=== PATIENT | female | born 1955 | race Caucasian/White ===

== ENCOUNTER 2018-12-27 00:49 | Outpatient (CLI) | payer OTHER, SELFPAY ==
--- NOTE | 2018-12-27 15:18 | DI.MAMMO_ITS ---
SYMPTOMS/DIAGNOSIS: SCREENING, Z12.39 MAMMOGRAM: Mammograms were interpreted according to the usual protocol including computer analysis with CAD system, tomosynthesis and C view imaging. Comparison is made with exams from 2016 and 2017. The breasts are composed of heterogeneously dense fibroglandular tissue, breast density Category C. No suspicious masses or suspicious microcalcifications are seen. There has been no significant change. IMPRESSION: Category I C, negative mammogram. Yearly screening mammography is recommended. [facility] ASSESSMENT OF FINDINGS: Negative. Category 1. Patient will receive a letter notifying them of these results. Bi-RADS category C. The breasts are heterogeneously dense, which may obscure small masses.
== END 2018-12-27 01:09 ==
PROVIDERS: PCP Nurse Practitioner Family; Visit Provider Nurse Practitioner Family
DX: Z12.31 Encounter for screening mammogram for malignant neoplasm of breast (principal)
CPT/HCPCS: 77063; 77067

== ENCOUNTER 2019-01-12 12:00 | Outpatient (REF) | payer OTHER, SELFPAY ==
[2019-01-12 13:13] LABS: Anion Gap 5.2 mmol/L (3-11); BUN 17 mg/dL (7-18); CO2 32.8 mmol/L (21.0-32.0); Calcium 8.6 mg/dL (8.5-10.1); Chloride 105 mmol/L (98-107); Cholesterol 194 mg/dL (50-200); Glucose 82 mg/dL (70-100); HDL Cholesterol 54 mg/dL (40-60); LDL CHOLESTEROL 116 mg/dL (<100); Potassium 4.1 mmol/L (3.5-5.1); Sodium 143 mmol/L (136-145); Triglyceride 98 mg/dL (30-150)
== END 2019-01-12 12:20 ==
LOC: NCHCN 12:00
PROVIDERS: PCP Nurse Practitioner Family; Visit Provider Nurse Practitioner Family
DX: E78.00 Pure hypercholesterolemia, unspecified (principal); F32.9 Major depressive disorder, single episode, unspecified; Z00.00 Encounter for general adult medical examination without abnormal findings
CPT/HCPCS: 80048; 80061; 83721

== ENCOUNTER 2021-01-15 12:17 | Outpatient (REF) | payer OTHER, SELFPAY ==
[2021-01-15 13:17] LABS: Anion Gap 4.4 mmol/L (3-11); BUN 24 mg/dL (7-18); CO2 28.6 mmol/L (21.0-32.0); CREATININE 0.9 mg/dL (0.55-1.02); Calcium 8.8 mg/dL (8.5-10.1); Calculated LDL 114 mg/dL (<100); Chloride 106 mmol/L (98-107); Cholesterol 184 mg/dL (<200); Glucose 93 mg/dL (74-106); HDL Cholesterol 58 mg/dL (40-60); Potassium 4.9 mmol/L (3.5-5.1); Sodium 139 mmol/L (136-145); Triglyceride 64 mg/dL (<150)
== END 2021-01-15 12:18 | disposition home or self-care (01) ==
LOC: NCHCN 12:17
PROVIDERS: PCP Nurse Practitioner Family; Visit Provider Nurse Practitioner Family
DX: E78.00 Pure hypercholesterolemia, unspecified (principal); Z00.00 Encounter for general adult medical examination without abnormal findings
CPT/HCPCS: 80048; 80061

== ENCOUNTER 2021-01-23 01:10 | Outpatient (CLI) | payer OTHER, SELFPAY ==
--- NOTE | 2021-01-23 12:18 | DI.MAMMO_ITS ---
EXAM: MG MAMMO SCREENING CLINICAL HISTORY: SCREENING,Z12.39. TECHNIQUE: Bilateral full field digital CC and MLO mammographic images were obtained with 3D tomosyn thesis and utilizing computer aided detection (CAD). COMPARISON: Prior mammograms dating back to 2015, the most recent being November 2018 . FINDINGS: The fibroglandular tissue is dense, this decreasing the sensitivity of the mammogram for finding hidd en underlying lesions. There are no obvious spiculated masses nor malignant appearing microcalcification groups. There is n o significant architectural distortion nor skin thickening-retraction. IMPRESSION: Dense bilateral fibroglandular tissue. No obvious radiographic evidence of malignancy BI-RADS Category 1 - Negative Breast Density - Category D - Extremely dense Breast density Category C or D implies that the patient has dense breast tissue. Dense breast tissue can make it harder to find cancer on a mammogram. Dense breast tissue is also associated with an incr eased risk of breast cancer. This information about the result of the mammogram report was provided to the patient to raise their awareness. Use this report when you speak with the patient about their risks for breast cancer, which includes their family history. At that time, you may recommend additional screening tests (Ultrasoun d or MRI) as these tests may add significant information. A negative radiographic report should not delay biopsy if a dominant or clinically suspicious mass is present. Up to ten percent of cancers are not identified on mammography. A negative report may reinforce clinical impression. Adenosis and dense breasts may obscure an underlying neoplasm. False positive reports average 6 to 10%. Patient will receive a letter notifying them of these results.
== END 2021-01-23 01:11 ==
LOC: DI 01:10
PROVIDERS: PCP Nurse Practitioner Family; Visit Provider Nurse Practitioner Family
DX: Z12.31 Encounter for screening mammogram for malignant neoplasm of breast (principal)
CPT/HCPCS: 77063; 77067

== ENCOUNTER 2021-02-12 10:27 | Outpatient (REF) | payer OTHER, SELFPAY ==
--- NOTE | 2021-02-12 09:45 | PAPFT_PTH ---
PATIENT: Mariely Uribe LOC: [facility] U#:[id number] AGE/SX: 66/F ROOM: RE02/12/[address]: Olga Vasquez : 1955 BED: DIS: 02/12/2021 SPEC #: [id number] RECD: 02/12/21 12:56 STATUS: NASIMA SAMANO #: [id number] NAHOMY: 02/12/21 09:[address]: Olga Vasquez DEPT: [facility] Cytology RECD BY: Milly Bernstein Tissues: 1 - CX/ENDOCX FOR PAP SMEARS Procedures: PAP THIN PREP/UVM Screening Comments: [id number]
== END 2021-02-12 10:28 | disposition home or self-care (01) ==
LOC: NCHCN 10:27
PROVIDERS: PCP Nurse Practitioner Family; Visit Provider Nurse Practitioner Family
DX: Z12.4 Encounter for screening for malignant neoplasm of cervix (principal); Z00.00 Encounter for general adult medical examination without abnormal findings
CPT/HCPCS: 88142

== ENCOUNTER 2021-09-24 03:27 | Outpatient (CLI) | payer OTHER, SELFPAY ==
[2021-09-24 11:30] LABS: Source Nasal/Nares
[2021-09-24 13:46] LABS: COVID-19 PCR Negative (Negative)
== END 2021-09-24 03:28 | disposition home or self-care (01) ==
LOC: LBO 03:28
PROVIDERS: PCP Nurse Practitioner Family; Visit Provider Surgery Vascular Surgery
DX: Z20.822 Contact with and (suspected) exposure to COVID-19 (principal); Z01.818 Encounter for other preprocedural examination
CPT/HCPCS: 87635

== ENCOUNTER 2021-12-02 15:44 | Outpatient (REF) | payer OTHER, SELFPAY ==
[2021-12-02 15:46] LABS: ALT 27 U/L (14-59); AST 22 U/L (15-37); Albumin 3.7 g/dL (3.4-5.0); Alkaline Phosphatase 92 U/L (46-116); Anion Gap 8.1 mmol/L (3-11); BUN 22 mg/dL (7-18); Bilirubin, Total 0.2 mg/dL (0.2-1.0); CO2 28.9 mmol/L (21.0-32.0); CREATININE 0.8 mg/dL (0.55-1.02); Calcium 9.1 mg/dL (8.5-10.1); Chloride 106 mmol/L (98-107); Glucose 87 mg/dL (74-106); Potassium 4.7 mmol/L (3.5-5.1); Sodium 143 mmol/L (136-145); Total Protein 7.1 g/dL (6.4-8.2)
[2021-12-03 10:03] LABS: HIV-1/2 Ag & Ab Screen Negative (Negative)
[2021-12-03 14:58] LABS: Hepatitis C Ab w Rflx HCV PCR Negative (Negative)
== END 2021-12-02 15:45 | disposition home or self-care (01) ==
LOC: NCHCN 15:44
PROVIDERS: PCP Nurse Practitioner Family; Visit Provider Nurse Practitioner Family
DX: E78.00 Pure hypercholesterolemia, unspecified (principal); Z00.00 Encounter for general adult medical examination without abnormal findings; Z11.4 Encounter for screening for human immunodeficiency virus [HIV]; Z11.59 Encounter for screening for other viral diseases
CPT/HCPCS: 80053; 86803; 87389

== ENCOUNTER 2021-12-03 02:19 | Outpatient (CLI) | payer OTHER, SELFPAY ==
[2021-12-03 12:58] LABS: Source Nasal/Nares
[2021-12-03 15:38] LABS: COVID-19 PCR Negative (Negative)
== END 2021-12-03 02:20 | disposition home or self-care (01) ==
PROVIDERS: Surgery Vascular Surgery; PCP Nurse Practitioner Family; Visit Provider Family Medicine
DX: Z20.822 Contact with and (suspected) exposure to COVID-19 (principal); Z01.818 Encounter for other preprocedural examination
CPT/HCPCS: 87635

== ENCOUNTER 2022-01-23 00:54 | Outpatient (CLI) | payer MEDICARE, SELFPAY ==
--- NOTE | 2022-01-23 15:20 | DI.DEXA_ITS ---
Exam(s) XR DEXA BONE DENSITY W/WO CAMILLE EXAM: XR DEXA BONE DENSITY W/WO CAMILLE CLINICAL HISTORY: screening for osteoporosis in postmenopausal woman,z78.0 TECHNIQUE: Routine DEXA evaluation of the lumbar spine, hip, or forearm. COMPARISON: No exams were available for comparison FINDINGS: Performed on a Hologic unit. Lateral image: No compression fracture evident. Lumbar Spine total T-score: 0.7 Hip total T-score:-1.6 Independent reading at the level of the femoral neck yields at T-score of -1.7. Forearm total T-score: -1.7 IMPRESSION: Bone mineral density measures in the osteopenia range. Fracture risk is moderate. Note: Any spine fracture indicates 5x risk for subsequent spine fracture and 2x risk for subsequent h ip fracture. World Health Organization criteria for BMD interpretation classify patients: Normal...... T- Score at or above -1.0 Osteopenic... T- Score between -1.0 and -2.5 Osteoporosis... T-Score at or below -2.5
== END 2022-01-23 01:14 ==
PROVIDERS: PCP Nurse Practitioner Family; Visit Provider Nurse Practitioner Family
DX: Z78.0 Asymptomatic menopausal state (principal); Z13.820 Encounter for screening for osteoporosis; M85.89 Other specified disorders of bone density and structure, multiple sites
CPT/HCPCS: 77080

== ENCOUNTER → 2023-05-21 08:57 | Outpatient (BNVA) | payer OTHER, SELFPAY | PROVIDERS: Visit Provider Physical Therapy Assistant | DX: Z12.11 Encounter for screening for malignant neoplasm of colon (principal); Z86.010 Personal history of colon polyps ==

== ENCOUNTER 2023-06-05 08:25 | Day surgery (SDC) | payer OTHER, SELFPAY ==
--- NOTE | 2023-06-04 20:55 | W.PM.DSUDISC ---
Date of service: 06/05/23 Time of Service: 11:10 Discharge Plan Disposition Patient Disposition: Home Condition: Good Discharge Details Reason For Visit: Colonoscopy Attending Provider: Goran Laird Primary Care Provider: Debbie Marcial Home Meds and New Rx's Prescriptions: Continued famotidine 20 mg tablet 20 mg PO QHS Qty: 60 1RF sertraline 100 mg tablet 150 mg PO DAILY famotidine 40 mg tablet 40 mg PO DAILY albuterol sulfate [ProAir HFA] 90 mcg/actuation HFA aerosol inhaler 2 puff inhalation Q6H PRN cholecalciferol (vitamin D3) 50 mcg (2,000 unit) capsule 50 mcg PO DAILY Discontinued bisacodyl [Dulcolax (bisacodyl)] 5 mg tablet,delayed release (DR/EC) 5 mg PO ONCE Qty: 4 0RF Rx Instructions: Take per colonoscopy instructions provided by ordering providers office polyethylene glycol 3350 17 gram/dose powder 17 g PO ONCE Qty: 238 0RF Rx Instructions: Take per colonoscopy instructions provided by ordering providers office Discharge Instructions Additional Instructions: Mariely, we were able to finish your colonoscopy today without any problems. The quality of your preparation was excellent, and I had great visualization of your large intestine. I did not find any polyps or tumors anywhere within the large intestine. My recommendation for that your next colonoscopy depends on the type of polyps that were found on your last 1. If you are able to obtain these records, please forward a copy of them to my office. If you are not able to obtain them, then I recommend a follow-up in 5 years. 1. If tolerated, consume a soft, low fiber diet for 1-2 days. 2[address] Do not drive, drink alcohol, operate machinery, make critical decisions, or do activities that require coordination or balance for 24 hours. 3. Because air was put into your colon during the procedure, expelling air from your rectum (passing gas or farting) is normal. 4. You may not have a bowel movement for 1-3 days because of the colonoscopy prep. This is normal. 5. Go directly to the emergency room if you notice any of the following: Develop chills (warm to touch), or if you have a thermometer and your temperature is above 101 Difficulty breathing or difficultly swallowing Persistent vomiting Severe abdominal pain, other than gas cramps Severe chest pain Black, tarry stools Any bleeding ? exceeding one tablespoon 6. Call your physician if the site where your intravenous was started becomes red, swollen, painful, and warm to touch. 7. Your physician has reviewed your pre-procedure medications. Please continue to take those medications as previously ordered. You will be given specific information/education regarding any changes to your medications before leaving. Activity:: Activity as Tolerated Diet:: As Tolerated Discharge Orders Discharge Orders: Discharge Order (Routine); Ordered 06/04/23 Ordered By: Goran Laird DS: Diagnosis Discharge Diagnosis (1) Screening for colon cancer: Status: Acute Asessment and Plan: Negative screening colonoscopy
--- NOTE | 2023-06-04 20:56 | W.COLOREPORT ---
Date of service: 06/05/23 Time of Service: 11:11 Colonoscopy Report Date of procedure: 06/05/23 Pre-op diagnosis general: screening colonoscopy Post-op diagnosis procedure note: other (Screening colonoscopy) Procedure: Colonoscopy Surgeon: Goran Laird Anesthesia Type: General:No Airway Estimated blood loss (mL): 0 Pathology: none sent Complications: None Disposition: same day Indications: Mariely is a 68 year old woman who needs a screening colonoscopy Prep: Miralax/Dulcolax Procedure Start Time: 10:47 Procedure End Time: 11:01 Retraction Time: 8 Findings: Negative screening colonoscopy Procedure Description: After the induction of monitored anesthetic care, and with the patient in left lateral decubitus position, I began by performing an external anorectal exam.? Perineum and skin were normal, as was the anal verge.? There was no evidence of external hemorrhoids.? Next, I performed a digital rectal exam.? I did not appreciate any abnormal findings.? Next, I advanced a colonoscope into the rectal vault.? I performed retroflexion.? This appeared normal.? Using insufflation, I then advanced the colonoscope beyond the rectal folds and into the sigmoid colon before advancing towards the cecum.? The quality of the prep was excellent.? The scope was noted to be in the cecum by identification of the ileocecal valve and appendiceal orifice.? I then began withdrawing the colonoscope using repeated irrigation as necessary for full evaluation of the colonic mucosa. ?Once the scope was withdrawn to the level of the rectum, great care was taken to examine portions of the rectal folds. I did not see any signs of polyps or tumors anywhere within the large intestine.? Finally, the scope was withdrawn and the patient was brought to the same-day surgery recovery unit as the anesthetic wore off. ?The findings and instructions were shared with the patient prior to discharge.
[2023-06-05 08:37] VITALS: BP 126/60; PULSE 60; RESP 16; TEMP 36.3; O2SAT 97
[2023-06-05] MEDS: Lactated Ringers 1,000 ML 80 ML IV (08:51)
--- NOTE | 2023-06-05 10:32 | W.ANESPRE ---
General Info Date of Service Date Performed: 06/05/23 Height: 4 ft 11 in Weight: 54.6 kg Body Mass Index (BMI): 24.3 Surgical Procedure: Operation Date: 06/05/23 10:05 Proposed Procedure Side Surgeon wade Laird MD Meds Allergies and Home Medications Allergies Allergy/AdvReac Type Severity Reaction Status Date / Time No Known Allergies Allergy Verified 06/05/23 08:41 Home Medication Medication Instructions Recorded albuterol sulfate 90 mcg/actuation 2 puff inhalation Q6H PRN 09/18/22 aerosol inhaler (ProAir HFA) cholecalciferol (vitamin D3) 50 50 mcg PO DAILY 09/18/22 mcg (2,000 unit) capsule famotidine 40 mg tablet 40 mg PO DAILY 09/18/22 sertraline 100 mg tablet 150 mg PO DAILY 09/18/22 famotidine 20 mg tablet 20 mg PO QHS Reflux #60 tabs 05/22/23 Current Visit Medications: Current Medications Generic Name Dose Route Start Last Admin Trade Name Freq PRN Reason Stop Dose Admin Hyoscyamine Sulfate 0.125 mg 06/04/23 20:57 Hyoscyamine 0.125 Mg Sl/Oral/Chew SL 07/04/23 20:56 DIRECTED PRN Ringer's Solution 1,000 mls @ 80 mls/hr 06/05/23 06:00 06/05/23 08:51 IV 06/05/23 23:59 80 mls/hr INFUSION LLOYD Administration IV Miscellaneous Supplies 1 each 06/05/23 06:00 Iv Access IV 06/05/23 23:59 DIRECTED LLOYD Ondansetron HCl 4 mg 06/04/23 20:57 Ondansetron 4 Mg/2 Ml Vial IVP 07/04/23 20:56 Q4H PRN PRN Nausea / Vomiting Sodium Chloride 0 ml 06/05/23 06:00 Normal Saline Flush 10 Ml Syr IV 06/05/23 23:59 PRN PRN Sodium Chloride 0 ml 06/05/23 06:00 Normal Saline 10 Ml Vial IJ 06/05/23 23:59 DIRECTED PRN Sterile Water 0 ml 06/05/23 06:00 Water,Injection,Sterile 10 Ml Vial IJ 06/05/23 23:59 DIRECTED PRN PFSH Active Problems Active Problems: Problem Status Onset Code COPD (chronic obstructive pulmonary disease) J44.9 Hypercholesterolemia E78.00 Varicose veins of both lower extremities I83.93 GERD (gastroesophageal reflux disease) K21.9 Low back pain M54.50 Screening for colon cancer Z12.11 Medical History Medical History Depression Low vitamin D level Tobacco Smoking/Tobacco Use Status: Former Tobacco Use Alcohol Alcohol Intake: current Alcohol intake frequency: a few times a month Substance Use Substance use: Daily Substance use type: marijuana Vital Signs and Lab Results Vital Signs Most Recent Vital Signs in EMR: Most Recent Vital Signs Temp Pulse Resp BP Pulse Ox 36.3 C L 60 16 126/60 97 06/05/23 08:37 06/05/23 08:37 06/05/23 08:37 06/05/23 08:37 06/05/23 08:37 Lab Results Blood Type / Crossmatch: No Data to Display Complete Blood Count: No Data to Display Complete Metabolic Panel: No Data to Display Liver Function Panel: No Data to Display Coagulation Panel: No Data to Display Cardiac Panel: No Data to Display Arterial Blood Gas: No Data to Display Venous Blood Gas: No Data to Display Pancreas Panel: No Data to Display Thyroid Panel: No Data to Display Infectious Disease: No Data to Display Blood Cultures: No Data to Display Toxicology Panel: No Data to Display Anesthesia Assessment and Plan Anesthesia History Personal History: No History of Anesthesia Complications Family History: No Family History of Anesthesia Complications Exercise Tolerance Exercise Tolerance: Metabolic Equivalents>4 Pertinent Negatives Pertinent Negatives: No Symptoms of GERD Cardiac & Pulmonary Exam Cardiac Exam: Normal S1/S2 Heart Sounds Pulmonary Exam: Clear Bilateral Breath Sounds Implantable Cardiac Device Does patient have a Pacemaker or an ICD?: No Airway Exam Known Difficult Airway: No Mallampati Class: 1 Mouth Opening: Normal (> 3cm) Thyromental Distance: Less than 3 cm Neck Range of Motion: Full ROM Neck Circumference: Normal Teeth Condition: Normal Dentition ASA Classification ASA Score: ASA 2 Emergency Case?: No NPO Status NPO Status: NPO Clears >2 hours, Solids >8 hours Anesthesia Plan Resuscitation Status: Full Code Anesthesia Technique: General Anesthesia Airway Planned: Natural Airway Monitors Used: Standard Monitors
[2023-06-05 10:34] VITALS: BMI 24.3
[2023-06-05 11:05] VITALS: BP 159/89; PULSE 57; RESP 18; TEMP 36; O2SAT 96
--- NOTE | 2023-06-05 11:09 | W.ANESPOSTOP ---
Postoperative Evaluation Date, Time and Location Date Performed: 06/05/23 Time Performed: 11:09 Patient Location: Day Surgery Unit Vital Signs Most Recent Imported Vital Signs: Most Recent Vital Signs Temp Pulse Resp BP Pulse Ox 36.3 C L 60 16 126/60 97 06/05/23 08:37 06/05/23 08:37 06/05/23 08:37 06/05/23 08:37 06/05/23 08:37 Pain Score Most Recent Pain Score: Most Recent Pain Score Pain Level 0 06/05/23 08:37 Assessment Mental Status: Arousable with meaningful communication Airway and Respiratory Function: Patent airway with normal (patient baseline) respiratory exam Cardiovascular Function: Hemodynamically Stable Hydration Status: Adequately Hydrated Nausea & Vomiting: No Nausea or Vomiting Pain: Pt. Denies Any Pain Peripheral Nerve Block: Patient did not receive a nerve block
[2023-06-05 11:26] VITALS: BP 125/69; PULSE 47; RESP 17; TEMP 36.1; O2SAT 97
== END 2023-06-05 11:40 | disposition home or self-care (01) ==
PROVIDERS: PCP Family Medicine; Visit Provider Surgery
PROC: 0DJD8ZZ Inspection of Lower Intestinal Tract, Via Natural or Artificial Opening Endoscopic (ICD-10-PCS; CPT 45378; principal; 2023-06-05 10:00)
DX: Z12.11 Encounter for screening for malignant neoplasm of colon (principal)
CPT/HCPCS: G0121; J2001

== ENCOUNTER 2023-09-17 01:47 | Outpatient (CLI) | payer OTHER, SELFPAY ==
--- NOTE | 2023-09-17 11:45 | DI.MAMMO_ITS ---
Exam(s) MAMMO SCREENING EXAM: MAMMO SCREENING CLINICAL HISTORY: SCREENING, Z12.39 TECHNIQUE: Bilateral full field digital CC and MLO mammographic images were obtained with 3D tomosyn thesis and utilizing computer aided detection (CAD). COMPARISON: Available for comparison. FINDINGS: Masses/Architectural Distortion: None seen. Microcalcifications: No suspicious pleomorphic-type are seen. Skin Thickening/Nipple Retraction: None. IMPRESSION: 1. No significant interval change with no specific features of malignancy noted. 2. Unless there is more urgent need, screening mammography is recommended, as per [employer] [place] guidelines. BI-RADS Category 1 - Negative Breast Density - Category D - Extremely dense Breast density category C or D implies that the patient has dense breast tissue. Dense breast tissue is very common and is not abnormal but dense breast tissue can make it harder to find cancer on a ma mmogram. Also, dense breast tissue may increase their breast cancer risk. This information about the result of the mammogram report was provided to the patient to raise their awareness. Use this report when you speak with the patient about their risks for breast cancer, which includes their family hist ory. At that time, you may recommend for more screening tests (Ultrasound or MRI) as they might be us eful based on their risk. A negative radiographic report should not delay biopsy if a dominant or clinically suspicious mass is present. Up to ten percent of cancers are not identified on mammography. A negative report may reinforce clinical impression. Adenosis and dense breasts may obscure an underlying neoplasm. False positive reports average 6 to 10%. Patient will receive a letter notifying them of these results.
== END 2023-09-17 02:07 ==
LOC: DI 01:47
PROVIDERS: PCP Family Medicine; Visit Provider Nurse Practitioner Family
DX: Z12.31 Encounter for screening mammogram for malignant neoplasm of breast (principal)
CPT/HCPCS: 77063; 77067

== ENCOUNTER 2024-03-17 16:21 | Outpatient (REF) | payer OTHER, SELFPAY ==
[2024-03-17 16:05] LABS: Abs Immature Grans 0.02 10^3/uL (0.0-0.06); Absolute Basophil Count 0.06 10^3/uL (0.0-0.2); Absolute Eosinophil Count 0.03 10^3/uL (0.0-0.7); Absolute Lymphocyte Count 1.78 10^3/uL (1.2-3.4); Absolute Monocyte Count 0.58 10^3/uL (0.1-0.8); Absolute Neutrophil Count 3.71 10^3/uL (1.2-6.7); Eosinophils % 0.5; HCT 38.9 % (36.0-46.0); HGB 12.6 g/dL (11.2-15.7); Immature Grans % 0.3; Lymphocytes % 28.8; MCH 30.2 pg (27.0-33.0); MCHC 32.4 % (32.0-36.0); MCV 93 fL (80-95); Monocytes % 9.4; Platelet Count 318 10^3/uL (130-400); RBC 4.17 10^6/uL (3.93-5.22); RDW 13.2 % (11.7-14.6); RDW-SD 45.5 fL; WBC 6.18 10^3/uL (4.4-10.8)
[2024-03-17 16:52] LABS: ALT 30 U/L (14-59); AST 26 U/L (15-37); Albumin 3.5 g/dL (3.4-5.0); Anion Gap 8.8 mmol/L (3-11); BUN 23 mg/dL (7-18); Bilirubin, Total 0.3 mg/dL (0.2-1.0); CO2 29.2 mmol/L (21.0-32.0); CREATININE 0.8 mg/dL (0.55-1.02); Calcium 8.7 mg/dL (8.5-10.1); Calculated LDL 175 mg/dL (<100); Chloride 105 mmol/L (98-107); Cholesterol 260 mg/dL (<200); Estimated GFR 80.71 (mL/min/1.73m2); Glucose 113 mg/dL (74-106); HDL Cholesterol 59 mg/dL (40-60); Potassium 4.6 mmol/L (3.5-5.1); Sodium 143 mmol/L (136-145); TSH (W/Ref FT4) 2.59 uIU/mL (0.36-3.74); Total Protein 6.8 g/dL (6.4-8.2); Triglyceride 133 mg/dL (<150)
[2024-03-17 17:15] LABS: Alkaline Phosphatase 85 U/L (46-116)
== END 2024-03-17 16:22 | disposition home or self-care (01) ==
LOC: NCHCN 16:21
PROVIDERS: PCP Nurse Practitioner Family; Visit Provider Nurse Practitioner Family
DX: K21.9 Gastro-esophageal reflux disease without esophagitis (principal); F32.9 Major depressive disorder, single episode, unspecified
CPT/HCPCS: 80053; 80061; 84443; 85025

== ENCOUNTER 2024-09-20 16:27 | Outpatient (REF) | payer OTHER, SELFPAY ==
--- OUTSIDE RECORDS SUMMARY | 2024-09-20 16:42 | XMS_ITS | Clinical Summary ---
Author Organization [facility] Address [address] [place] [id number] Care Team Providers Care Prototype Technician Name Role Phone Laura Najera MD Primary Care Provide r Allergies No known active allergies Medications Medication Sig Dispensed Refills Start Date End Date Status sertraline (ZOLOFT) 25 mg tablet Take 150 mg by mouth daily. Active cholecalciferol, Vitamin D3, 25 mcg (1,000 unit) tablet Take 2,000 Units by mouth daily. Active acetaminophen (TYLENOL) 325 mg tablet Take 650 mg by mouth every 4 hours as needed for Pain. Active Active Problems Problem Noted Date Diagnosed Date Venous insufficiency, peripheral 09/11/2021 Surgical History Surgery Date Site/Laterality Comments VASCULAR SURGERY bilateral vein stripping age 30's SECTION x 2 CERVICAL SPINE SURGERY 11/30/2016 - 11/29/2017 Medical History Medical History Date Comments Hyperlipidemia COPD (chronic obstructive pulmonary disease) ( C-CMS) Family History Medical History Relation Comments Diabetes Father Heart Disease Father High Cholesterol Father Stroke Father Varicose Veins Father Emphysema Mother Relation Status Comments Father Mother Social History Tobacco Use Types Packs/Day Years Used Date Smoking Tobacco: Former Cigarettes Q uit: 11/30/2008 Smokeless Tobacco: Never Tobacco Cessation:Counseling Given: Yes Alcohol Use Standard Drinks/Week Comments Yes 3 (1 standard drink = 0.6 oz pur e alcohol) Interpersonal Safety Answer Date Record ed Physically Hurt Never 01/27/2021 Verbally Threaten Not on file 01/27/2021 Sex and Gender Information Value Date Recorded Sex Assigned at Not on file Gender Identity Not on file Sexual Orientation Not on file Obstetrics History Last Filed Vital Signs Vital Sign Reading Time Taken Comments Blood Pressure 120/80 12/13/2021 1031 EST left Pulse 56 12/13/2021 1031 EST Temperature 36.2 ??C (97.1 ??F) 12/06/2021 0945 EST Respiratory Rate 12 12/06/2021 0945 EST Oxygen Saturation 94% 12/13/2021 1031 EST Inhaled Oxygen Concentration - - Weight 60.8 kg (134 lb) 12/06/2021 0649 EST Height 149.9 cm (4' 11) 12/06/2021 0649 EST Body Mass Index 27.06 12/06/2021 0649 EST Plan of Treatment Health Maintenance Due Date Last Done Comments RSV Immunization ( o r 60+ Years) (1 - 1-dose 60+ series) 2017 Fall Risk Screening 2022 COVID-19 Vaccine (2022-24 season) 2023 Hepatitis C Screen Completed 12/02/2021 Procedures Procedure Name Priority Date/Time Associated Diagnosis Comments HEPATITIS C AB W REFLEX TO HCV RNA BY PCR Routine 12/02/2021 10:10 EST from Last 3 Months or Most Recently Relevant to Health Maintenance Results * HEPATITIS C AB W REFLEX TO HCV RNA BY PCR (12/02/2021 10:10 EST) Hep C Antibody Negative Negative 12/03/2021 14:[address] [facility] Blood VENOUS BLOOD / Unknown 12/02/2021 10:10 EST 12/02/2021 20:51 EST Provider Outr Resulting Lab CHEMISTRY & BLOOD GAS ORDERABLES [facility] [address] [place] [address] from Last 3 Months or Most Recently Relevant to Health Maintenance Advance Directives For more information, please contact: [phone] * Full Code (Latest Code Status on File) Date Activated Date Inactivated Comments 12/06/2021 6:27 12/06/2021 13:03 Question Answer Comments When the patient has NO PULSE: Full Code / CPR Who Made the Decision? Default/Not Discussed Care Teams Prototype Technician Relationship Specialty Start Date End Date Laura Najera MD [address] [place] [id number] PCP - General 04/16/17
--- OUTSIDE RECORDS SUMMARY | 2024-09-20 16:43 | XMS_ITS | Encounter Summary ---
Author Organization [facility] Address [address] [place] [address] Care Team Providers Care Tow Motor Driver Name Role Phone Veronica Jarvis MD, Aruna Primary Care Provider [phone] Encounter Details Date Type Department Care Team (Late st Contact Info) Description 08/25/2006 Office Visit [facility] - Maple conversion [address] [place] [address] Rosario Webster MD [address] [place] [id number] Social History Tobacco Use Types Packs/Day Years Used Date Smoking Tobacco: Never Assessed Sex and Gender Information Value Date Recorded Sex Assigned at Not on file Gender Identity Not on file Sexual Orientation Not on file documented as of this encounter Progress Notes * Rosario Webster MD - 01/24/2010 0557 EST Care Center - Physician Summary Registration Date/Time: 08/28/2006 12:40 Time Seen: 13:51 . Arrived- By private vehicle. Historian - patient. HISTORY OF PRESENT ILLNESS Chief Complaint- WOUND RECHECK. Previous emergency department treatment: laceration repair. given. Since the procedure the patient has not had fever, redness or discharge. Treated in emergency department three days ago. REVIEW OF SYSTEMS No numbness or weakness. PAST HISTORY See nurses notes. Tetanusimmunization status is up-to-date. Ortho. Medications: Keflex. No known drug allergies. SOCIAL HISTORY Patient is employed (at [employer]). ADDITIONAL NOTES The nursing notes have been reviewed. PHYSICAL EXAM Appearance: Alert. Oriented X3. No acute distress. Vital Signs: Have been reviewed - Skin: Wound on the right hand. Swelling to right hand. Note (R hand: ecchymosis of second, third and fourth digits ). No erythema, tenderness, warmth, drainage or wound dehiscence. Neuro, Vascular, and Tendons: No pulse deficit present (RUE). No sensory deficit (RUE). No upper extremity weakness (RUE). No functional tendon deficit (RUE). Neuro: Oriented X 3. PROGRESS AND PROCEDURES Patient counseled. Re: elevation of hand to reduce swelling. Disposition: Discharged home in stable condition (13:56 ). CLINICAL IMPRESSION Healing wound to right hand; . Contusion right hand . INSTRUCTIONS Limit use of right hand for 7 days. Do not work for two days. See instructions for laceration and contusion. (Electronically signed by Rosario Webster M.D. 08/28/2006 17:42) Care Center - Nursing Summary Registration Date/Time: 08/28/2006 12:40 TRIAGE Initial Assessment BP: 110 / 60. HR: 80. RR: 18. Temp: 97.2. --1330 Wellington Campbell R.N. Medications Celexa. ( antibiotics, vicodin). --1330 Wellington Campbell R.N. Allergies No known drug allergies. --1330 Wellington Campbell R.N. History Chief Complaint: LACERATION and ( wound re-check). This occurred ( 4 days). Pain level now: 0/10. ( full rom, continued swelling). Treatment RAT TRAPPER: ( elvated). PAST HX: Negative. Tetanus status: up-to-date. SOCIAL HX: Smoker: less than 1 pack per day. No alcohol use. Historian: patient. Arrived by private vehicle. --1330 Wellington Campbell R.N. PHYSICAL ASSESSMENT Ambulatory to room. ( hand swollen with eccymosis, wound clean and dry, sutures intact). --1331 Wellington Adrian, R.N. DISPOSITION / DISCHARGE Condition at departure: improved. No learning barriers present. Discharge instructions reviewed with the patient. Patient verbalized understanding. Written instructions provided in Libyan. --1411 Wellington Campbell R.N. Locked/Released at 08/28/2006 14:11 by Wellington Campbell R.N. * Rosario Webster MD - 01/23/2010 1393 EST Care Center - Physician Summary Registration Date/Time: 08/25/2006 8:04 Attending Note: I supervised care provided by the resident. We have discussed the case. I have reviewed the note and agree with the plan of treatment. I personally interviewed the patient and examined the patient. Procedure performed- performed by me. Patient identified, consent obtained. Location right dorsum, irrigated extensively with NS by Walk-In Care staff, inspected, no FB visualized, no tendon laceration visualized, anesthesia with 2 % lidocaine, sutured with 5-0 ethilon, good hemostasis, no complication. I have personally reviewed the X-rays. (Electronically signed by Rosario Webster M.D. 08/30/2006 19:19) Arrived- By private vehicle. Historian - patient. HISTORY OF PRESENT ILLNESS Chief Complaint- Injury to the right hand. The injury happened just prior to arrival. She sustaineda crush injury - caught hand in machine. Occurred at work. Patient is experiencing severe pain. No other injury. REVIEW OF SYSTEMS The patient sustained a laceration to the right hand. She has had swelling. She has had constant numbness of the right hand (moderate). PAST HISTORY Tetanus immunization status is unknown. Medications: The patient's medications have been reviewed. Allergies: No known drug allergies. SOCIAL HISTORY Smoker. Alcohol use; consumes beer occasionally. ADDITIONALNOTES The nursing notes have been reviewed. PHYSICAL EXAM Appearance: Alert. Oriented X3. Patient in moderate distress. Vital Signs: Have been reviewed - Head: Head atraumatic. CVS: Normal heart rate and rhythm. Heart sounds normal. Respiratory: No respiratory distress. Skin: Skin warm and dry. Extremities: Dorsal right hand: moderate erythema and swelling, severe tenderness and deep laceration. Neurovascular intact distally. No signs of infection present. Extremities otherwise negative. Neuro, Vascular and Tendons: Vascular status intact. Decreased light touch sensation over the rightlittle finger. Motor intact. Tendon function intact. LABS, X-RAYS, AND EKG X-Rays: (Reviewed w/ Dr. Webster). PROGRESS AND PROCEDURES PROCEDURES Documented by Dr. Webster. Disposition: Discharged home in goodcondition. CLINICAL IMPRESSION Deep laceration to right hand. Contusion right hand . INSTRUCTIONS Limit use of your right hand as needed and until released. Do not work for three days. Warnings: TETANUS: You were given a tetanus shot in the emergency department. Make a note for future reference. Prescription Medications: Vicodin 5 mg: take 1 to 2 orally every 6 hours as needed for pain. Dispense fifteen(15). No refills. Generic substitute OK. Cephalexin 500 mg: take 1 tab orally every 6 hours for 3 days. No refill. OTC Medications: Motrin (available over the counter): take according to label instructions. Follow-up: Return to the emergency department in three days. (Electronically signed by Evelia Baxter MD 08/25/2006 16:15) Care Center - Nursing Summary Registration Date/Time: 08/25/2006 8:04 TRIAGE Initial Assessment Triage time 08:08 . BP: 110 / 60. HR: 92. RR: 18. --816 Mariely Deluna R.N. Medications Celexa (1/2 tab a day). --816 Mariely Deluna R.N. Allergies No known drug allergies. --816 Mariely Deluna R.N. History Chief Complaint: INJURY TO RIGHT HAND. This occurred today. Mechanism of injury (In a door with a power james). Pain level now: 09/08. PAST HX: Negative. History of previous surgery. . ( Orthopedic surgeries.). Tetanus status: unknown. Last tetanus: ( 5-10 years). SOCIAL HX: Smoker (3/4 ppd). Occasional alcohol use. Arrived by private vehicle. Historian: patient. --816 Mariely Deluna R.N. PAST HX. PHYSICAL ASSESSMENT Alert. Oriented X 3. Skin is warm. --816 Mariely Deluna R.N. Appears in pain. --08 Mariely Deluna R.N. NURSING PROGRESS NOTES Progress Patient ready for evaluation - --817 Mariely Deluna R.N. Pre-procedure time-out completed: verified identity of patient (name and birthdate). . --45 Mariely Deluna R.N. Td (TETANUS and DIPHTHERIA) 0.5 mL lot #[id number] exp date IM left deltoid. . --0846 Mariely Deluna R.N. Bulky dressing consisting of gauze and Kerlix was applied, following the application of antibiotic ointment. --1045 Marycruz Allen M.A. DISPOSITION / DISCHARGE No learning barriers present. Reviewed medication (Vicodin and antibiotics). Patient verbalized understanding. Written instructions provided in Libyan. The patient was discharged home. The patient left the EmergencyDepartment ambulatory and via private vehicle. Patient driving. Departure time: 10:53. --1053 Mariely Deluna R.N. Locked/Released at 08/25/2006 10:54 by Mariely Deluna R.N. documented in this encounter Plan of Treatment Not on file documented as of this encounter Visit Diagnoses Not on filedocumented in this encounter Care Teams Tow Motor Driver Relationship Specialty Start Date End Date Aruna Martin MD [address] [place] [phone] PCP - General 04/30/09 04/15/17 documented as of this encounter
--- OUTSIDE RECORDS SUMMARY | 2024-09-20 16:43 | XMS_ITS | Encounter Summary ---
Author Organization [facility] Address [address] [place] [address] Care Team Providers Care Pharmacometrician Name Role Phone Laura Najera MD Primary Care Provide r Reason for Visit * Vascular Lab (Routine) - Closed Specialty Diagnoses / Procedures Referred By Sukhi parmar Referred To Contact Diagnoses Varicose veins of bilateral lower extremities with pain Procedures US VARICOSE VEIN DUPLEX Julio César Jacques MD [address] [place] [address] [address] [place] [address] Referral ID Status Reason Start Date Expiration Date Visits Re quested Visits Authorized [id number] Closed 01/18/2021 1 1 Encounter Details Date Type Department Care Team (Latest Contact Info) Description 02/22/2021 13:30 EDT Ancillary Procedure [facility] Vascular Surgery [address] [address] Varicose veins of bilateral lower extremities with pain Social History Tobacco Use Types Packs/Day Years Used Date Smoking Tobacco: Former Smokeless Tobacco: Never Interpersonal Safety Answer Date Record ed Physically Hurt Never 01/27/2021 Verbally Threaten Not on file 01/27/2021 Sex and Gender Information Value Date Recorded Sex Assigned at Not on file Gender Identity Not on file Sexual Orientation Not on file COVID-19 Exposure Response Date Recorded In the last month, have you been in contact with someone who was confirmed or suspected to have Coronavirus / COVID-19? No / Unsure 02/22/2021 13:48 EDT documented as of this encounter Functional Status Functional Status Response Date of Assess ment Because of a physical, menta l, or emotional condition, does this person have difficulty doing errands alone such as visiting a doctor's office or shopping? No 04/16/2017 Cognitive Status Response Date of Assessm ent Because of a physical, menta l, or emotional condition, does this person have serious difficulty concentrating, remembering, or making decisions? No 04/16/2017 documented as of this encounter Plan of Treatment Not on file documented as of this encounter Visit Diagnoses Diagnosis Varicose veins of bilateral lower extremities with pain documented in this encounter Orders Imaging Orders Without Results Count Last Order ed Date First Ordered Date US VARICOSE VEIN DUPLEX 1 02/22/2021 documented in this encounter Care Teams Pharmacometrician Relationship Specialty Start Date End Date Laura Najera MD [address] [place] [id number] PCP - General 04/16/17 documented as of this encounter
--- OUTSIDE RECORDS SUMMARY | 2024-09-20 16:43 | XMS_ITS | Encounter Summary ---
Author Organization [facility] Address [address] [place] [address] Care Team Providers Care Processing Inspector Name Role Phone Veronica Jarvis MD, Aruna Primary Care Provider [phone] Encounter Details Date Type Department Care Team (Late st Contact Info) Description 04/23/2001 Results Only [facility] - Maple conversion [address] [place] [address] Erika Peterson I, COMPUTER SCIENCE PROFESSOR [address] [place] [address] Social History Tobacco Use Types Packs/Day Years Used Date Smoking Tobacco: Never Assessed Sex and Gender Information Value Date Recorded Sex Assigned at Not on file Gender Identity Not on file Sexual Orientation Not on file documented as of this encounter Plan of Treatment Not on file documented as of this encounter Procedures Procedure Name Priority Date/Time Associated Diagnosis Comments CYTOPATHOLOGY Routine 04/23/2001 0:00 EDT documented in this encounter Results * CYTOPATHOLOGY (04/23/2001 0:00 EDT) Pathology Report: CYTOPATHOLOGY REPORT Reports generated via electronic interface contain original data; however they are lacking the format of the original report. Caution should be taken when reading/interpreti ng unformatted reports. Name: ? KOLE ANGLIN ? Accession #: ? [id number] : ? 1955 (Age: 46) ??F ?Collect Date: ? 04/23/2001 Location: ? [facility] ? Receive Date: ? 04/28/2001 Provider: ?ERIKA PETERSON MD Copy to: ? Specimen/Source: ?ThinPrep Pap Test, Cervix Last Menstrual Period: ? 03/30/01 Other: ? Client ID#: [id number] ? SPECIMEN ADEQUACY ? Satisfactory for evaluation. GENERAL CATEGORIZATION ? Benign Cellular Changes DESCRIPTIVE DIAGNOSIS ? 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 ? Document reviewed and electronically signed by: ? LETICIA Byers(ASCP) ? Report Date: ??04/29/2001 08:10 End of Report [facility] 04/23/2001 04/28/2001 Erika Peterson COMPUTER SCIENCE PROFESSOR PATHOLOGY ORDERABLES Performing Organization Address City/State/[facility] Co de Phone Number [facility] [address] [place] [address] documented in this encounter Visit Diagnoses Not on filedocumented in this encounter Care Teams Processing Inspector Relationship Specialty Start Date End Date Aruna Martin MD [address] [place] [phone] PCP - General 04/30/09 04/15/17 documented as of this encounter
--- OUTSIDE RECORDS SUMMARY | 2024-09-20 16:43 | XMS_ITS | Encounter Summary ---
Author Organization [facility] Address [address] [place] [address] Care Team Providers Care Trades Helper Name Role Phone Unavailable Primary Care Provider Unavailabl e Encounter Details Date Type Department Care Team (Late st Contact Info) Description 09/03/2006 16:34 EDT Hospital Encounter [facility] [address] [place] [address] Kingston Lemon, TRANSLATOR DEAF [address] [place] [address] Milly Ty MD [address] [facility] Level [address] [place] [phone] Social History Tobacco Use Types Packs/Day Years Used Date Smoking Tobacco: Former Cigarettes Q uit: 11/30/2008 Smokeless Tobacco: Never Alcohol Use Standard Drinks/Week Comments Yes 3 [...] have Coronavirus / COVID-19? No / Unsure 12/06/2021 6:33 EST documented as of this encounter Plan of Treatment Not on file documented as of this encounter Visit Diagnoses Not on filedocumented in this encounter
--- OUTSIDE RECORDS SUMMARY | 2024-09-20 16:43 | XMS_ITS | Encounter Summary ---
Author Organization [facility] Address [address] [place] [address] Care Team Providers Care Administration Dean Name Role Phone Unavailable Primary Care Provider Unavailabl e Encounter Details Date Type Department Care Team (Late st Contact Info) Description 05/31/2002 9:32 EDT Hospital Encounter [facility] - Other [address] [place] [address] Aruna Fuller MD [address] [place] [phone] Unknown, Provider, Social History Tobacco Use Types Packs/Day Years [...] Procedure Name Priority Date/Time Associated Diagnosis Comments HDL Routine 05/31/2002 11:00 EDT FSH Routine 05/31/2002 11:00 EDT CHOLESTEROL Routine 05/31/2002 11:00 EDT CYTOPATHOLOGY Routine 05/31/2002 0:00 EDT documented in this encounter Results * HDL (05/31/2002 11:00 EDT) HDL 43 mg/dl [facility] Comment: Highly Desirable:>60 Desirable:35-60 High Risk:<35 05/31/2002 11:0 0 EDT 05/31/2002 21:08 EDT Aruna Jarvis MD CHEMISTRY & BLOOD GA S ORDERABLES Performing Organization Address [facility] de Phone Number [facility] [address] [place] [address] * FSH (05/31/2002 11:00 EDT) FSH 10.2 mIU/ml [facility] Comment: Follicular: 2-11 Mid-Cycle Peak: 3.4-35 Luteal: 1-9 Postmenopausal: 25-120 Note new reference range. 05/31/2002 11:0 0 EDT 05/31/2002 21:08 EDT Aruna Jarvis MD CHEMISTRY & BLOOD GA S ORDERABLES Performing Organization Address [facility] Co de Phone Number [facility] [address] [place] [address] * CHOLESTEROL (05/31/2002 11:00 EDT) Cholesterol 229 mg/dl [facility] Comment: Desirable:<200 Borderline:200-239 High Risk:>ku=217 05/31/2002 11:0 0 EDT 05/31/2002 21:08 EDT Aruna Jarvis MD CHEMISTRY & BLOOD GA S ORDERABLES Performing Organization Address [facility] Co de Phone Number [facility] [address] [place] [address] * CYTOPATHOLOGY (05/31/2002 0:00 EDT) Pathology Report: CYTOPATHOLOGY REPORT Reports generated via electronic interface contain original data; however they are lacking the format of the original report. Caution should be taken when reading/interpreti ng unformatted reports. Name: ? KOLE ANGLIN ? Accession #: ? [id number] : ? 1955 (Age: 47) ??F ?Collect Date: ? 05/31/2002 Location: ? [facility] ? Receive Date: ? 06/01/2002 Provider: ?ARUNA FULLER MD Copy to: ? Specimen/Source: ?ThinPrep Pap Test, Cervix Last Menstrual Period: ? 01/29 ? SPECIMEN ADEQUACY ? Satisfactory for Evaluation - transformation zone component present GENERAL CATEGORIZATION ? Negative for Intraepithelial Lesion or Malignancy ? Document reviewed and electronically signed by: ? LETICIA Byers(ASCP) ? Report Date: ??06/08/2002 08:54 End of Report [facility] 05/31/2002 06/01/2002 Aruna Jarvis MD PATHOLOGY ORDERABLES [facility] [address] [place] [address] documented in this encounter Visit Diagnoses Not on filedocumented in this encounter
--- OUTSIDE RECORDS SUMMARY | 2024-09-20 16:43 | XMS_ITS | Encounter Summary ---
Author Organization [facility] Address [address] [place] [address] Care Team Providers Care Veneer Marker Name Role Phone Unavailable Primary Care Provider Unavailabl e Encounter Details Date Type Department Care Team (Latest Contact Info) Description 09/13/2001 22:38 EDT Hospital Encounter [facility] - Other [address] [place] [address] Lesly Paulino, OT [address] [phone] Unknown, Provider, Discharge Disposition: Auto Discharge Social History Tobacco Use Types Packs/Day Years Used Date Smoking Tobacco: Never Assessed Sex and Gender Information Value Date Recorded Sex Assigned at Not on file Gender Identity Not on file Sexual Orientation Not on file documented as of this encounter Discharge Disposition Disposition Code Departure Means Destination Auto Discharge documented in this encounter Plan of Treatment Not on file documented as of this encounter Procedures Procedure Name Priority Date/Time Associated Diagnosis Comments SURGICAL PATHOLOGY Routine 09/13/2001 0:00 EDT documented in this encounter Results * SURGICAL PATHOLOGY (09/13/2001 0:00 EDT) Pathology Report: SURGICAL PATHOLOGY REPORT Reports generated via electronic interface contain original data; however they are lacking the format of the original report. Caution should be taken when reading/interpreting unformatted reports. Name: ? LINNETTEKOLE ? Accession #: ? [id number] ? : ? 1955 (Age: 46) ??F ? Collect Date: ? 09/13/2001 ? Location: ? [facility] ? Receive Date: ? 09/14/2001 ? Provider: LESLY PAULINO MD Copy to: ? Final Pathologic Diagnosis: ? Skin of thigh, right, punch biopsy: - Psoriasiform dermatitis. ??See microscopic and comment. Comment: ? The biopsy shows many features of psoriasis. ??The only unusual feature is the preservation of the granular layer that, in some areas, appears accentuated. This may be seen in cases of partially treated psoriasis. ??(Dr. Rubio)/formerly [facility], later [facility] Microscopic Description: ? Sections consist of a punch biopsy of skin to the deep reticular dermis. The stratum corneum is thickened by compact orthohyperkeratosis with foci of parakeratosis. ??Clusters of neutrophils are noted between the layers of keratin. The epidermis shows a moderate degree of regular psoriasiform hyperplasia with elongate and slightly thickened rete ridges. ??The keratinocytes along the basal zone show reactive changes and an increased number of mitotic figures. ??There is mild intercellular edema associated with exocytosis of a small number of lymphomononuclear cells. ??The granular layer is preserved in most areas. ??Within the superficial dermis, there is a sparse inflammatory infiltrate that is composed primarily of lymphocytes and histiocytes with a small number of neutrophils. ??Some of the dermal papillae have prominent swollen capillaries. ??A small number of budding yeast forms are identified within the stratum corneum on sections stained with PAS-amylase. ??No fungal hyphae are present. ??(Dr. Rubio)/james Document reviewed and electronically signed by: Lesly Rubio MD Report ??Date: 09/17/2001 16:42 By the signature above, the attending physician certifies that he/she has personally conducted a gross and/or microscopic examination of the described specimens and rendered or confirmed the above diagnosis. Specimen(s) Received: ? R thigh Clinical History: ? psoriasis; clinical diagnosis code: 696.1 Gross Description: ? Received in formalin labelled Linnette and R thigh is a punch biopsy of skin which measures 0.3 cm in diameter and 0.3 cm in depth. ??The specimen is submitted entirely in one cassette. ??(Dr. Martinez)/rigoberto End of Report [facility] 09/13/2001 09/14/2001 9:2 8 EDT Lesly Paulino OT PATHOLOGY ORDERA JASMYN [facility] [address] [place] [address] documented in this encounter Visit Diagnoses Not on filedocumented in this encounter
--- OUTSIDE RECORDS SUMMARY | 2024-09-20 16:43 | XMS_ITS | Encounter Summary ---
Author Organization [facility] Address [address] [place] [address] Care Team Providers Care Mat Tester Name Role Phone Unavailable Primary Care Provider Unavailabl e Encounter Details Date Type Department Care Team (Latest Contact Info) Description 01/13/2000 16:09 EST Hospital Encounter [facility] - Other [address] [place] [address] Cristian Gayle MD [address] [place] [phone] Unknown, ProviderMD Discharge Disposition: Auto Discharge Social History Tobacco [...] Procedure Name Priority Date/Time Associated Diagnosis Comments GLUCOSE, SERUM Routine 01/14/2000 17:53 EST CYTOPATHOLOGY Routine 01/13/2000 14:21 EST documented in this encounter Results * GLUCOSE, SERUM (01/14/2000 17:53 EST) Glucose, Serum 85 70 - 110 mg/dl [facility] Comment:Fasting 01/14/2000 17:5 3 EST 01/14/2000 17:53 EST Cristian Jarvis MD CHEMISTRY & BLOOD GA S ORDERABLES [facility] [address] [place] [address] * CYTOPATHOLOGY (01/13/2000 14:21 EST) Pathology Report: CYTOPATHOLOGY REPORT Reports generated via electronic interface contain original data; however they are lacking the format of the original report. Caution should be taken when reading/interpreti ng unformatted reports. Name: ? KOLE ANGLIN ? Accession #: ? [id number] : ? 1955 (Age: 45) ??F ?Collect Date: ? 01/13/2000 Location: ?Receive Date: ? 01/13/2000 Provider: ?CRISTIAN GAYLE MD Copy to: ?CRISTIAN GAYLE MD ? Specimen/Source: ?[employer] ThinPrep Last Menstrual Period: ? GYNECOLOGIC ??CYTOPATHOLOGY ??REPORT Name: KOLE THOMASON ? [facility] : 1955 ?? 45Y F ?Client ID: ?? SS#: [id number] ? Clinician: CRISTIAN GAYLE MD, [facility] ??Copy to: ?? Specimen: ?[employer]orter ThinPrep ? Source: Cervix/Endocervix ?Collected: 01/10/00 ? Received: 01/13/2000 ?LMP: 01/07/00 ? Hormone Therapy: No ? : No ? Radiation Therapy: No ?? Post : No ?Chemotherapy: No ?IUD: No ? Prev Abnormal Pap: No ?? Clinical Hx: Digene HPV Hybrid Capture testing requested, ? contingent on a diagnosis of ASCUS/NATA/LSIL on the ? current ThinPrep Pap test. ??HPV test results to follow ? in 7 to 10 days, if the cellular sample is sufficient ? for testing. ?(Blank nation indicate information not provided on requisition) SPECIMEN ADEQUACY: ? Satisfactory For Evaluation ?? GENERAL CATEGORIZATION: ? WITHIN NORMAL LIMITS ? Reviewed And Electronically Signed By: ? Vincent Johnson, CT(ASCP) ? Report Date: ?? 01/15/2000 [facility] Archived Tests - Final Diagnosis Text Field: Clinical History : Digene HPV Hybrid Capture testing requested, contingent on a diagnosis of ASCUS/NATA/LSIL on the current ThinPrep Pap test. ??HPV test results to follow in 7 to 10 days, if the cellular sample is sufficient for testing. ? Document reviewed and electronically signed by: ? Conversion ? Report Date: ??01/15/2000 00:00 End of Report [facility] 01/13/2000 14:2 1 EST 01/13/2000 14:22 EST Cristian Jarvis MD PATHOLOGY ORDERABLES [facility] [address] [place] [address] documented in this encounter Visit Diagnoses Not on filedocumented in this encounter
--- OUTSIDE RECORDS SUMMARY | 2024-09-20 16:43 | XMS_ITS | Encounter Summary ---
Author Organization [facility] Address [address] [place] [address] Care Team Providers Care Veneer Gluer Name Role Phone Veronica Jarvis MD, Aruna Primary Care Provider [phone] Encounter Details Date Type Department Care Team (Late st Contact Info) Description 09/05/2003 Results Only [facility] conversion [address] [place] [address] Aruna Martin MD [address] [place] [phone] Social History Tobacco Use Types Packs/Day Years Used Date Smoking Tobacco: Never Assessed Sex and Gender Information Value Date Recorded Sex Assigned at Not on file Gender Identity Not on file Sexual Orientation Not on file documented as of this encounter Plan of Treatment Not on file documented as of this encounter Procedures Procedure Name Priority Date/Time Associated Diagnosis Comments TSH Routine 09/05/2003 10:45 EDT LIPID PROFILE (INCLUDES CHOLESTEROL, TRIGLYCERIDES, HDL, LDL) Routine 09/05/2003 10:45 EDT COMPREHENSIVE METABOLIC PANEL (CMP) Routine 09/05/2003 10:45 EDT documented in this encounter Results * TSH (09/05/2003 10:45 EDT) TSH 1.63 0.35 - 5.50 uIU/ml [facility] 09/05/2003 10:4 5 EDT 09/05/2003 20:21 EDT Aruna Jarvis MD CHEMISTRY & BLOOD GA S ORDERABLES Performing Organization Address [facility] de Phone Number [facility] [address] [place] [address] * LIPID PROFILE (INCLUDES CHOLESTEROL, TRIGLYCERIDES, HDL, LDL) (09/05/2003 10:45 EDT) Cholesterol 189 mg/dl [facility] Comment: Desirable:<200 Borderline:200-239 High Risk:>[id number] Fasting Triglycerides 96 35 - 160 mg/dl [facility] Comment:Fasting HDL 36 mg/dl [facility] Comment: Highly Desirable:>60 Desirable:35-60 High Risk:<35 Fasting LDL, Calculated 134 mg/dl [facility] Comment: Desirable:<130 Borderline:130-159 High Risk:>rq=[id number] Fasting Chol/HDL Ratio 5.3 Fasting [facility] 09/05/2003 10:4 5 EDT 09/05/2003 20:21 EDT Aruna Jarvis MD CHEMISTRY & BLOOD GA S ORDERABLES Performing Organization Address [facility] de Phone Number [facility] [address] [place] [address] * (ABNORMAL) COMPREHENSIVE METABOLIC PANEL (CMP) (09/05/2003 10:45 EDT) Potassium 4.9 3.5 - 5.0 mEq/L [facility] Comment:Fasting Sodium 139 136 - 145 mEq/L [facility] Comment:Fasting Chloride 101 96 - 110 mEq/L [facility] Comment:Fasting CO2 29 24 - 30 mEq/L [facility] Comment:Fasting Total Alkaline Phosphatase 87 38 - 126 U/L [facility] Comment:Fasting Bilirubin, Total 0.4 0.2 - 1.3 mg/dl [facility] Comment:Fasting AST 34 8 - 50 U/L [facility] Comment:Fasting ALT 45 15 - 75 U/L [facility] Comment:Fasting Albumin 3.7 3.0 - 5.5 g/dl [facility] Comment:Fasting Total Protein 7.8 6.0 - 8.5 g/dl [facility] Comment:Fasting Creatinine 0.6(L) 0.7 - 1.5 mg/dl [facility] Comment:Fasting BUN 14 10 - 26 mg/dl [facility] Comment:Fasting Calcium 8.9 8.5 - 10.5 mg/dl [facility] Comment:Fasting Calculated Calcium 9.6 8.5 - 10.5 mg/dl [facility] Comment:Fasting Glucose, Serum 91 70 - 110 mg/dl [facility] Comment:Fasting Albumin/Globulin Ratio 0.9 Fasting [facility] 09/05/2003 10:4 5 EDT 09/05/2003 20:21 EDT Aruna Jarvis MD CHEMISTRY & BLOOD GA S ORDERABLES Performing Organization Address City/State/[facility] Co de Phone Number [facility] [address] [place] [address] documented in this encounter Visit Diagnoses Not on filedocumented in this encounter Care Teams Veneer Gluer Relationship Specialty Start Date End Date Aruna Martin MD [address] [place] [phone] PCP - General 04/30/09 04/15/17 documented as of this encounter
--- OUTSIDE RECORDS SUMMARY | 2024-09-20 16:43 | XMS_ITS | Encounter Summary ---
Author Organization [facility] Address [address] [place] [address] Care Team Providers Care Manager School Name Role Phone Laura Najera MD Primary Care Provide r Encounter Details Date Type Department Care Team (Latest Contact Info) Description 02/13/2021 Lab Requisition [facility] Pathology & Laboratory Medicine - [address] [address] Olga Vasquez FNP [address] [place], [place] [phone] Encounter for general adult medical examination without abnormal findings; Encounter for screening for malignant neoplasm of cervix; Encounter for screening for human papillomavirus (HPV) Social History Tobacco Use Types Packs/Day Years Used Date Smoking Tobacco: Former Interpersonal Safety Answer Date Record ed Physically Hurt Never 01/27/2021 Verbally Threaten Not on file 01/27/2021 Sex and Gender Information Value Date Recorded Sex Assigned at Not on file Gender Identity Not on file Sexual Orientation Not on file documented as of this encounter Functional Status [...] Procedure Name Priority Date/Time Associated Diagnosis Comments PAP TEST Today 02/12/2021 9:45 EDT Encounter for general adult medical examination without abnormal findings Encounter for screening for malignant neoplasm of cervix Encounter for screening for human papillomavirus (HPV) documented in this encounter Results * PAP TEST (02/12/2021 9:45 EDT) Specimens A. Cervix and/or Endocervix , ThinPrep Imaging System with Manual Evaluation 02/21/2021 11:46 EDT [facility] Specimen Adequacy Satisfactory for Evaluation - assessment of transformation zone component not applicable ( e.g. atrophy, vaginal sample, hysterectomy) Scant squamous epithelial component, contamination present, possibly lubricant 02/21/2021 11:46 EDT [facility] General Categorization Negative for intraepithelial lesion or malignancy 02/21/2021 11:46 T [facility] Attestation . 02/21/2021 11:46 [facility] at 1146 Clinical History See below 02/22/20 11:46 EDT [facility] Performing Lab [facility] 02/21/2021 11:46 T [facility] Scanned Images 02/21/2021 11:46 T [facility] Papanicolaou smear specimen (specimen) CERVIX UTERI STRUCTURE / Unknown 02/12/2021 9:45 EDT 02/13/2021 13:01 EDT Olga PAREDES PATHOLOGY ORDERABLES [facility] [address] [place] [address] documented in this encounter Visit Diagnoses Diagnosis Encounter for general adult medical examination without abnormal findings Unspecified general medical examination Encounter for screening for malignant neoplasm of cervix Screening for malignant neoplasm of the cervix Encounter for screening for human papillomavirus (HPV) Special screening examination for human papillomavirus (HPV) documented in this encounter Care Teams Manager School Relationship Specialty Start Date End Date Laura Najera MD [address] [place] [phone] PCP - General 04/16/17 documented as of this encounter
--- OUTSIDE RECORDS SUMMARY | 2024-09-20 16:43 | XMS_ITS | Encounter Summary ---
Author Organization [facility] Address [address] [place] [address] Care Team Providers Care Hide Examiner Name Role Phone Laura Najera MD Primary Care Provide r Reason for Visit * Reason Comments Pre-op Exam pre-op for left leg VVI surgery [facility] 09/27/21 Encounter Details Date Type Department Care Team (Late st Contact Info) Description 09/11/2021 9:30 EDT Office Visit [facility] Vascular Surgery - [address] [address] Nurse Practitioner, [facility] Vasc Surg Venous insufficiency, peripheral (Primary Dx) Social History Tobacco Use Types Packs/Day Years [...] on file documented as of this encounter Last Filed Vital Signs Vital Sign Reading Time Taken Comments Blood Pressure 116/72 09/11/2021 0940 EDT left Pulse 66 09/11/2021 0940 EDT Temperature - - Respiratory Rate - - Oxygen Saturation 99% 09/11/2021 0940 EDT Inhaled Oxygen Concentration - - Weight 60.3 kg (133 lb) 09/11/2021 0940 EDT Height 149.9 cm (4' 11.02) 09/11/2021 0940 EDT Body Mass Index 26.85 09/11/2021 0940 EDT documented in this encounter Functional Status Functional Status Response [...] No 04/16/2017 documented as of this encounter H&P Notes * Kiya Humphrey RIG SUPERINTENDENT - 09/11/2021 0930 EDT [facility] Vascular Surgery H & P Date: 09/11/2021 Patient: Mariely Uribe Subjective: Mariely Uribe is a 66 y.o. female who presents today for preoperative evaluation for left leg greatersaphenous vein high ligation and stab phlebectomies. Referred by: Laura Najera History of Present Illness: Mariely Uribe is a 66 y.o. woman with a long standing history of bilateral varicose veins. She is s/p vein stripping several years ago and has had recurrence of varicositiesdespite the use of compression stockings. Her symptoms consist of aching pain, leg cramps, swelling, but denies itching, ever having ulceration or bleeding. Ultrasound revealed reflux in the remaining great saphenous vein, but no deep reflux. Past medical history is significant for prior tobacco use, COPD not on inhalers or O2, HLD. There is no history of DVT, PE or hypercoagulable state. Cardiac testing: NA The patient's problem list, allergies, immunizations, and medications were documented, reviewed, and updated as follows: Patient Active Problem List Diagnosis ??? Venous insufficiency, peripheral Allergies: Patient has no known allergies. Immunizations: There is no immunization history on file for this patient. Medications: Current Outpatient Medications Medication ??? cholecalciferol, Vitamin D3, 25 mcg (1,000 unit) tablet ??? sertraline (ZOLOFT) 25 mg tablet No current facility-administered medications for this visit. History was documented as follows: PMH PSH Past Medical History: Diagnosis Date ??? COPD (chronic obstructive pulmonary disease) ([facility]) (HCC) ??? Hyperlipidemia Past Surgical History: Procedure Laterality Date ??? CERVICAL SPINE SURGERY 2017 ??? SECTION x 2 ??? VASCULAR SURGERY bilateral vein stripping age 32's Social History Family History Living situation: independent Family History Problem Relation Age of Onset ??? Heart Disease Father ??? Stroke Father ??? Diabetes Father ??? High Cholesterol Father ??? Varicose Veins Father ??? Emphysema Mother Social History Tobacco Use ??? Smoking status: Former Smoker Quit date: 11/30/2008 Years since quittin.7 ??? Smokeless tobacco: Never Used Substance Use Topics ??? Alcohol use: Yes Alcohol/week: 3.0 standard drinks Types: 3 Standard drinks or equivalent per week Vascular Review of Systems: Constitutional: No active issues; no concerns and Feels well today HEENT: No active issues; no concerns Cardiac: No active issues; no concerns Respiratory: No active issues; no concerns, No cough and No shortness of breath Gastrointestinal: No active issues; no concerns Genitourinary/Renal: No active issues; no concerns Musculoskeletal: No active issues; no concerns Neurologic: No active issues; no concerns Integumentary: No active issues; no concerns Allergy/Immunology: No active issues; no concerns Psych: none On anticoagulation: NO Objective: Physical Examination: Vitals: BP 116/72 Comment: left Pulse 66 Ht (!) 149.9 cm (59.02) Wt 60.3 kg (133 lb) SpO2 99% BMI 26.85 kg/m?? General: Alert, in no acute distress, appears stated age Psych: Oriented X 3 Neck: Supple, sclera non-icteric Chest: unremarkable Heart: RRR, no M/R/G Lungs: clear - bilaterally Abdomen: Not examined : not examined Musculoskeletal: No mobility limitations Skin: clean, dry and intact over surgical site Neurologic: grossly intact Venous Exam: Large, bulging varicosities at the medial thigh draping distally over the medial calf and lateral ankle. Numerous reticular veins, no ulceration or dermatitis. EKG: NA Labs drawn on: NA CXR from: NA Blood Bank if applicable: NA Stress test if applicable: NA Patient medication instructions if applicable: Per anesthesia protocol. Assessment: Mariely Uribe is a 66 y.o. woman with past medical history significant as above with recurrent LLE symptomatic venous insufficiency despite the use of compression. She is a good candidate for high ligation of GSV and stab ligation surgery. The patient has been informed and understands the information and situation provided to them about the procedure. They have capacity and ability to weigh risks, goals and benefits as well as the alternatives of proposed treatments including the option of not undergoing the procedure. The patient has expressed their rationale and executed the choice to proceed forward with the procedure with no undue influence or coercion. If the patient is DNR, a required reconsideration has been completed? N/A Advantages and disadvantages of surgery were reviewed. The operative procedure was discussed including the risks of general anesthetic and medications and the potential risk of complications. There could also be the need for re-operation. Post-operative recovery was discussed, as well as the need for post surgery follow-up. Pre-procedure COVID-19 testing and self-quarantine protocols were discussed with the patient, alongwith facility-wide measures intended to mitigate any risk of COVID-19 transmission. All questions pertaining to testing and mitigation measures were answered, and the patient agreed to proceed. The patient understands the risks; any and all questions were answered to the patient's satisfaction. Pre-Op Assessment: No contraindications to planned surgery Plan: 1. OR with Dr. Jimenez on 09/27/2021 2. NPO after midnight 3. IV Cefazolin 2 gm preoperatively, no h/o MRSA 4. Covid 19 preprocedure testing ordered. 5. Written consent obtained for [facility] as well as orders placed. Mariely was seen today for pre-op exam. Diagnoses and all orders for this visit: Venous insufficiency, peripheral Patient Education Topic: Preoperative showering instructions Method: Verbal Taught to: Patient Barriers: None Outcomes: verbalized understanding Submitted by: Kiya Humphrey NP documented in this encounter Plan of Treatment Not on file documented as of this encounter Visit Diagnoses Diagnosis Venous insufficiency, peripheral- Primary Unspecified venous (peripheral) insufficiency documented in this encounter Discontinued Medications Medication Sig Discontinue Reason Start Date End Da te simvastatin (ZOCOR) 20 mg tablet Take 40 mg by mouth daily. Therapy completed 09/11/2021 documented as of this encounter Care Teams Hide Examiner Relationship Specialty Start Date End Date Laura Najera MD [address] [place] [address] PCP - General 04/16/17 documented as of this encounter
--- OUTSIDE RECORDS SUMMARY | 2024-09-20 16:43 | XMS_ITS | Encounter Summary ---
Author Organization [facility] Address [address] [place] [address] Care Team Providers Care Console Manager Name Role Phone Veronica Jarvis MD, Aruna Primary Care Provider Encounter Details Date Type Department Care Team (Latest Contact Info) Description 04/30/2009 8:27 EDT - 04/30/2009 23:59 EDT Hospital Encounter [address] [address] Aruna Martin MD [address] [place] [address] Discharge Disposition: Home or Self Care Social History Tobacco Use Types Packs/Day Years Used Date Smoking Tobacco: Never Assessed Sex and Gender Information Value Date Recorded Sex Assigned at Not on file Gender Identity Not on file Sexual Orientation Not on file documented as of this encounter Discharge Disposition Disposition Code Departure Means Destination Home or Self Retirement documented in this encounter Plan of Treatment Not on file documented as of this encounter Visit Diagnoses Not on filedocumented in this encounter Care Teams Console Manager Relationship Specialty Start Date End Date Aruna Martin MD [address] [place] [phone] PCP - General 04/30/09 04/15/17 documented as of this encounter
--- OUTSIDE RECORDS SUMMARY | 2024-09-20 16:43 | XMS_ITS | Encounter Summary ---
Author Organization [facility] Address [address] [place] [address] Care Team Providers Care Program And Research Coordinator Name Role Phone Laura Najera MD Primary Care Provide r Reason for Visit * Auth/Cert Specialty Diagnoses / Procedures [facility] To Contact Diagnoses Varicose veins of right lower extremity with inflammation Varicose veins of right lower extremity with inflammation [I83.11] Procedures MT ENDOVENOUS RF, 1ST VEIN Right leg radiofrequency ablation of greater saphenous vein Referral ID Status Reason Start Date Expiration Date Visits Re quested Visits Authorized [id number] 1 1 Encounter Details Date Type Department Care Team (Late st Contact Info) Description 12/06/2021 7:38 EST Anesthesia Event [facility] Operating Room [address] [place] [address] Dallas Ji MD [address] [place] [phone] Anesthesia Record Procedure Summary Procedure Name Responsible Anesthesiologist Anesthesia Start Time Anesthesia Stop Time Right leg radiofrequency ablation of greater saphenous vein (Right: Leg) Dallas Ji MD 12/06/21 0738 12/06/21 0838 Events Date Time Event Comment 12/06/2021 0738 An Start The patient was re-evaluated immediately before moderate or deep sedation use, before anesthesia induction, or before the anesthesia procedure. 0738 An Start Data 0742 Anesthesia Ready 0809 Paul Oral airway nicol jason 0830 an stop data 0838 Handoff to RN I completed my handoff to the receiving nurse during which we: 1. Identified the patient 2. Identified the responsible provider 3. Reviewed the pertinent medical history 4. Discussed the surgical course 5. Reviewed intra-op anesthesia management and issues during anesthesia 6. Set expectations for post-procedure period 7. Allowed opportunity for questions and acknowledgement of understanding. 0838 An Stop Meds Name Total fentanyl citrate (PF) injection 50 mcg ketAMINE 10 mg/mL vial 20 mg lidocaine 2% (PF) injection glass vial 5 0 mg midazolam 1 mg/mL 2 mL vial 2 mg propOFol (DIPRIVAN) injection 80 mg propofol (DIPRIVAN) 500 mg in 50 mL infu wiley 191,520 mcg ceFAZolin in D5W IVPB premade bag 2 g 2 g dexmedetomidine injection 6 mcg ePHEDrine vial 50 mg/mL 10 mg lactated ringers (LR) infusion 700 mL * Agents Name O2 N2O Air Aux O2 flow * Blood No blood administrations on file. Lines, Drains, and Airways Type Details Placement Removal Wound Anterior, Distal, Ri ght, Superior; Leg; incision 12/06/21 0822 by Peripheral IV 12/06/21; 0700; 20; Left, Posterior; Hand; Inserted by RN (pattie); 1; 2% Chlorhexidine with IPA; 12/06/21; 0957; Therapy completed; No complications, Dressing applied 12/06/21 0700 by Kenia Brennan, ASHLEY 12/06/21 0957 by Patty Barba, ASHLEY documented in this encounter Social History Tobacco Use Types Packs/Day Years [...] 6:33 EST documented as of this encounter Functional Status [...] No 04/16/2017 documented as of this encounter OR Notes * Anesthesia Postprocedure Evaluation - Isaias Copeland CRNA - 12/06/2021 0838 EST Patient: Mariely Uribe Vital signs were reviewed with the recovery nurse. Complete vitals history is available in the [facility]. Vitals Value Taken Time BP 111/63 12/06/21 0837 Temp - 12/06/21 0838 Resp 11 12/06/21 08 Pulse From Oximetry 54 BPM 12/06/21836 SpO2 95 % 12/06/21836 Vitals shown include unvalidated device data. Last Pain Score - Numeric Pain Level (Scale 1-10): 0 Type of Anesthesia - MAC Anesthesia Post Evaluation Level of consciousness: responsive/arousable to verbal stimuli Temperature status: normothermia Respiratory status: airway patent and nasal cannula Cardiovascular status: stable Nausea/Vomiting: none Pain management: adequate Post-Op Assessment: patient tolerated procedure well with no complications Patient participation: able to participate Disposition: outpatient/home Anesthesia Complications: No apparent anesthesia complications * Anesthesia Preprocedure Evaluation - Dallas Ji MD - 12/05/2021 1408 EST Anesthesia Preprocedure Evaluation Patient Medical History, including Anesthesia History reviewed. Chart and Nursing Notes reviewed, including NPO status and Medication History. Additional ROS/History Findings: No current facility-administered medications on file prior to encounter. Current Outpatient Medications on File Prior to Encounter Medication Sig Dispense Refill ??? cholecalciferol, Vitamin D3, 25 mcg (1,000 unit) tablet Take 2,000 Units by mouth daily. ??? sertraline (ZOLOFT) 25 mg tablet Take 150 mg by mouth daily. No current facility-administered medications for this encounter. Current Outpatient Medications Medication ??? cholecalciferol, Vitamin D3, 25 mcg (1,000 unit) tablet ??? sertraline (ZOLOFT) 25 mg tablet No Known Allergies Past Medical History: Diagnosis Date ??? COPD (chronic obstructive pulmonary disease) (HCC-CMS) (HCC) ??? Hyperlipidemia Relevant Problems CARDIOVASCULAR (+) Venous insufficiency, peripheral Past Surgical History: Procedure Laterality Date ??? CERVICAL SPINE SURGERY 2017 ??? SECTION x 2 ??? VASCULAR SURGERY bilateral vein stripping age 32's Past Anesthetics [x] No history of complications from anesthesia [x] No anesthesia records on file []No family history of allergic reactions to anesthesia Review of Systems SOCIAL HISTORY: Social History Tobacco Use Smoking Status Former Smoker ??? Quit date: 11/30/2008 ??? Years since quittin.0 Smokeless Tobacco Never Used Social History Substance and Sexual Activity Drug Use Yes ??? Types: Marijuana Comment: smoking Social History Substance and Sexual Activity Alcohol Use Yes ??? Alcohol/week: 3.0 standard drinks ??? Types: 3 Standard drinks or equivalent per week No results found for: GLUCOSEPOC No results found for: WBC, HGB, HCT, MCV, PLT Lab Results Component Value Date NA 139 09/05/2003 K 4.9 09/05/2003 CL 101 09/05/2003 CO2 29 09/05/2003 Lab Results Component Value Date BUN 14 09/05/2003 Lab Results Component Value Date CREATININE 0.6 (L) 09/05/2003 No results found for: INR, PROTIME No results found for: PTT UPT: [] Patient declines test No results found for: PREGUR COVID: [] None on file No results found for: COVIDUV Blood Type: No results found for: ABO, LABRH, LABANTI, SPECEXP EKG: [x] N/A ECHO: [x] N/A Cardiac Stress: [x] N/A There were no vitals taken for this visit. Pulse From Oximetry: -- Physical Exam Airway Mallampati: II TM distance: <3 FB Neck ROM: full Cardiovascular Rhythm: regular Rate: normal Dental Pulmonary Breath sounds clear to auscultation Abdominal - normal exam Anesthesia Plan ASA 3 Anesthesia Type - MAC (spinal if Dr. Jimenez thinks its reasonable) Anesthesia plan and risks discussed. Informed consent obtained from patient. The preoperative history and physical which was performed within 30 days of this procedure, has been reviewed and the clinically appropriate elements of the physical examination have been repeated. There are no changes to the documented history and physical or, if so, such changes are documented inthis note PAT Note Notes from 11/05/21 through 12/05/21 No notes of this type exist for this encounter. documented in this encounter Miscellaneous Notes * Addendum Note - Isaias Copeland CRNA - 12/10/20211 EST Addendum created 12/10/21 075 by Isaias Copeland CRNA Intraprocedure Meds edited, Orders acknowledged in Narrator documented in this encounter Plan of Treatment Not on file documented as of this encounter Visit Diagnoses Not on filedocumented in this encounter Administered Medications Inactive Administered Medications - up to 3 most recent administrations Medication Order MAR Action Action Date Dose Rate Site ceFAZolin in dextrose 5 % (ANCEF) IVPB DUPLEX intravenous, Administer over 30 Minutes, PRN, Starting on Thu12/06/21 at 0747, Until Thu12/06/21 at 0838, Routine, Anesthesia Intraprocedure Given 12/06/2021 7:47 EST 2 g dexmedeTOMIDine (PRECEDEX) injection intravenous, PRN, Starting on Thu12/06/21 at 0745, Until Thu12/06/21 at 0838, Routine, Anesthesia Intraprocedure Given 12/06/2021 7:45 EST 6 mcg ePHEDrine injection intravenous, PRN, Starting on Thu12/06/21 at 0817, Until Thu12/06/21 at 0838, Routine, Anesthesia Intraprocedure Given 12/06/2021 8:17 EST 10 mg fentaNYL citrate (PF) injection intravenous, PRN, Starting on Thu12/06/21 at 0804, Until Thu12/06/21 at 0838, Routine, Anesthesia Intraprocedure Given 12/06/2021 8:11 EST 25 mcg Given 12/06/2021 8:04 EST 25 mcg ketAMINE (KETALAR) IV injection vial intravenous, PRN, Starting on Thu12/06/21 at 0745, Until Thu12/06/21 at 0838, Routine, Anesthesia Intraprocedure Given 12/06/2021 7:48 EST 10 mg Given 12/06/2021 7:45 EST 10 mg lactated ringers (LR) infusion at 30 mL/hr, intravenous, CONTINUOUS, Starting on Thu12/06/21 at 0645, Until Thu12/06/21 at 1303, Routine, Preprocedure Restarted 12/06/2021 8:25 EST Continued by Anesthesia 12/06/2021 7:38 EST 30 mL/hr New Bag 12/06/2021 7:01 EST 1,000 mL 30 mL/hr IV lidocaine (PF) 20 mg/mL (2 %) injection intravenous, PRN, Starting on Thu12/06/21 at 0743, Until Thu12/06/21 at 0838, Routine, Anesthesia Intraprocedure Given 12/06/2021 7:43 EST 50 mg midazolam (PF) (VERSED) injection intravenous, PRN, Starting on Thu12/06/21 at 0742, Until Thu12/10/21 at 0750, Routine, Anesthesia Intraprocedure Given 12/06/2021 7:42 EST 2 mg propOFol (DIPRIVAN) 500 mg in 50 mL infusion intravenous, FA IP EQF CONTINUOUS PRN FOR ONE STEP MEDS, Starting on Thu12/06/21 at 0743, Until Thu12/06/21 at 0838, Routine, Anesthesia Intraprocedure Rate Change 12/06/2021 8:09 EST 100 mcg/kg/min 36.48 mL/hr New Bag 12/06/2021 7:43 EST 75 mcg/kg/min 27.36 mL/hr propOFol (DIPRIVAN) injection intravenous, PRN, Starting on Thu12/06/21 at 0743, Until Thu12/06/21 at 0838, Routine, Anesthesia Intraprocedure Given 12/06/2021 8:08 EST 30 mg Given 12/06/2021 7:58 EST 20 mg Given 12/06/2021 7:47 EST 10 mg documented in this encounter Care Teams Program And Research Coordinator Relationship Specialty Start Date End Date Laura Najera MD [address] [place] [id number] PCP - General 04/16/17 documented as of this encounter
--- OUTSIDE RECORDS SUMMARY | 2024-09-20 16:43 | XMS_ITS | Encounter Summary ---
Author Organization [facility] Address [address] [place] [address] Care Team Providers Care Glass Calibrator Name Role Phone Laura Najera MD Primary Care Provide r Reason for Visit * Reason Comments Varicose Veins ult first Encounter Details Date Type Department Care Team (Late st Contact Info) Description 04/16/2017 12:30 EDT Office Visit [facility] Vascular Surgery - [facility] [address] [place], [place] [id number] Laura Najera MD [address] [place], [place] [address] Thuan Jimenez MD Venous insufficiency of both lower extremities (Primary Dx); Varicose veins of both lower extremities with inflammation Discharge Disposition: Auto Discharge Social History Tobacco Use Types Packs/Day Years Used Date Smoking Tobacco: Former Sex and Gender Information Value Date Recorded Sex Assigned at Not on file Gender Identity Not on file Sexual Orientation Not on file documented as of this encounter Last Filed Vital Signs Vital Sign Reading Time Taken Comments Blood Pressure 96/64 04/16/2017 1238 EDT Left Pulse 74 04/16/2017 1238 EDT Temperature - - Respiratory Rate - - Oxygen Saturation - - Inhaled Oxygen Concentration - - Weight 61.2 kg (135 lb) 04/16/2017 1238 EDT Height 152.4 cm (5') 04/16/2017 1238 EDT Body Mass Index 26.37 04/16/2017 1238 EDT documented in this encounter Functional Status Functional Status Response Date of Assess ment Because of a physical, menta l, or emotional condition, does this person have difficulty doing errands alone such as visiting a doctor's office or shopping? No 04/16/2017 Cognitive Status Response Date of Assess ent Because of a physical, menta l, or emotional condition, does this person have serious difficulty concentrating, remembering, or making decisions? No 04/16/2017 documented as of this encounter Discharge Disposition Disposition Code Departure Means Destination Auto Discharge documented in this encounter Progress Notes * Thuan Jimenez MD - 04/16/2017 1230 EDT [facility] Vascular Surgery H & P Consultation Note - Initial Visit Note Date: 04/16/2017 Patient: Mariely Uribe Subjective: Mariely Uribe is a 62 y.o. female who presents today for Varicose Veins (ult first) Consult requested by Laura Najera Patient History of Present Illness: The patient complains of varicose veins in the legs. The patient had previous bilateral vein strippings approximately 30 years ago. She follows up today with complaints of large bulging veins in her legs. She complains of aches, heaviness and itching related to them. Her left leg is worse than her right. She does wear compression to help control her symptoms and she has been doing that for years. She denies a history of ulcers or bleeding. The patient's history, allergies, and medications were documented, reviewed, and updated. Medications: Current Outpatient Prescriptions Medication Sig Dispense Refill ??? sertraline (ZOLOFT) 25 mg tablet Take 25 mg by mouth daily. ??? simvastatin (ZOCOR) 20 mg tablet Take 20 mg by mouth daily. No current facility-administered medications for this visit. History was documented as follows: PMH PSH Past Medical History: Diagnosis Date ??? Hyperlipidemia No past surgical history on file. Social History Family History Social History Substance Use Topics ??? Smoking status: Former Smoker ??? Smokeless tobacco: Not on file ??? Alcohol use Not on file Family History Problem Relation Age of Onset ??? Heart Disease Father ??? Stroke Father Allergies No Known Allergies Review of Systems A comprehensive review of systems was negative. Objective: Physical Examination: Vitals: BP 96/64 Comment: Left Pulse 74 Ht 152.4 cm (60) Wt 61.2 kg (135 lb) BMI 26.37 kg/m2 General Healthy-appearing 62 y.o. white female in no apparent distress who looks her stated age. Eyes: scelra non-icteric Musculoskeletal: No joint effusions or tenderness. Extremities: No bony abnormality. No joint effusions. Varicose veins palpable in the legs Skin: Warm and pink. No lesions or stasis dermatitis. Hematologic: There is no bruising. Neurologic: Gait and stance are normal; Strength Upper and lower extremities, 5/5. There is no tremor or slurred speech. Vascular: warm, pink, capillary refill brisk, palp pedal pulses Non-invasive Vascular Lab Tests: B GSV reflux (previous stripping BLE) Deep systems no DVT and min reflux Assessment: Symptomatic bilateral varicose veins and venous insufficiency. We discussed varicose veins and their pathophysiology. I explained that we cannot cure varicose veins and that they could recur later on in life, even if we treat those that are present today. I explained that invasive treatment of varicose veins was elective and that there was no risk to life or limb from varicose veins. I discussed the options for treatment, including compression, sclerotherapyand surgery. We discussed the risks and benefits of surgery, including the risks of anesthesia and the risk of bleeding or infection. We also discussed that surgery would produce scars and surgery would require time off from work. We discussed newer surgical techniques including radiofrequency ablat ion (???closure procedure?? ). We discussed injection sclerotherapy. We discussed the risks of allergic reactions, ulceration and discoloration. In particular we discussed the cosmetic risk of discoloration from injection of varicose veins, something that we have little control over, unfortunately.We discussed the need to wear compression dressings for up to a week after injection of larger veins and that more than one injection session might be necessary. I also explained that treatment of spider veins or varicose veins for cosmetic reasons only would not be covered by insurance. Plan: - cont compression - f/u prn Submitted by: Thuan Jimenez MD CC: Laura Najera documented in this encounter Plan of Treatment Not on file documented as of this encounter Visit Diagnoses Diagnosis Venous insufficiency of both lower extremities- Primary Varicose veins of both lower extremities with inflammation documented in this encounter Historical Medications * This list may reflect changes made after this encounter. Medication Sig Dispensed Refills Start Date End Date sertraline (ZOLOFT) 25 mg tablet Take 150 mg by mouth daily. simvastatin (ZOCOR) 20 mg tablet Take 40 mg by mouth daily. 09/11/2021 added in this encounter Care Teams Glass Calibrator Relationship Specialty Start Date End Date Laura Najera MD [address] [place] [address] PCP - General 04/16/17 documented as of this encounter
--- OUTSIDE RECORDS SUMMARY | 2024-09-20 16:43 | XMS_ITS | Encounter Summary ---
Author Organization [facility] Address [address] [place] [address] Care Team Providers Care Director Of Home Care Hospice Name Role Phone Veronica Jarvis MD, Aruna Primary Care Provider [phone] Encounter Details Date Type Department Care Team (Late st Contact Info) Description 06/24/2013 Results Only [facility] [phone] Alyse Joyner PA [address] [place] [address] Social History Tobacco Use Types Packs/Day Years Used Date Smoking Tobacco: Never Assessed Sex and Gender Information Value Date Recorded Sex Assigned at Not on file Gender Identity Not on file Sexual Orientation Not on file documented as of this encounter Plan of Treatment Not on file documented as of this encounter Procedures Procedure Name Priority Date/Time Associated Diagnosis Comments PAP TEST- RESULT ONLY Routine 06/24/2013 0:00 EDT documented in this encounter Results * PAP TEST- RESULT ONLY (06/24/2013 0:00 EDT) Pathology Report: CYTOPATHOLOGY REPORT Reports generated via electronic interface contain original data; however they are lacking the format of the original report. Caution should be taken when reading/interpreti ng unformatted reports. Name: ? KOLE ANGLIN ? Accession #: ? [id number] ? : ? 1955 (Age: 58) ??F ?Collect Date: ? 06/24/2013 ? Location: ? [facility] ? Receive Date: ? 06/28/2013 ? Provider: ALYSE ELLIS Copy to: ? Final Report SPECIMEN ADEQUACY ? Satisfactory for Evaluation - transformation zone component present GENERAL CATEGORIZATION ? Negative for Intraepithelial Lesion or Malignancy INTERPRETATION ? Shift in evgeny present suggestive of bacterial vaginosis. Other: Additional clinical information: HX OF ABN PAPS Specimen/Source: ??Pap Test, Cervix, ThinPrep Imaging System with manual evaluation Document reviewed and electronically signed by: ? Amber Sewell, CT(ASCP) ? Report ??Date: 07/06/2013 13:18 HPV with Pap Test ? Date Ordered: ? 07/06/2013 ? Status: ?? Signed Out ?Date Complete: ? 07/08/2013 ? By: ??System Interface ? Date Reported: ? 07/08/2013 ? Interpretation RESULT: Negative for HPV. No E6 or E7 mRNA is detected from HPV types 16,18,31,33,35, 39,45,51,52,56,58, 59,66, and 68 by high speed warper tender mediated amplification. Comments Document reviewed and electronically signed by: ? System Interface ? Report date: 07/08/2013 By the signature above, the attending physician certifies that he/she has personally conducted a gross and/or microscopic examination of the described specimens and rendered or confirmed the above diagnosis. End of Report [facility] 06/24/2013 06/28/2013 Alyse ELLIS PATHOLOGY ORDERABLE S [facility] [address] [place] [address] documented in this encounter Visit Diagnoses Not on filedocumented in this encounter Care Teams Director Of Home Care Hospice Relationship Specialty Start Date End Date Aruna Martin MD [address] [place] [address] PCP - General 04/30/09 04/15/17 documented as of this encounter
--- OUTSIDE RECORDS SUMMARY | 2024-09-20 16:43 | XMS_ITS | Encounter Summary ---
Author Organization [facility] Address [address] [place] [address] Care Team Providers Care Well Drill Operator Name Role Phone Unavailable Primary Care Provider Unavailabl e Encounter Details Date Type Department Care Team (Late st Contact Info) Description 08/28/2006 12:40 EDT Hospital Encounter [address] [address] Rosario Webster MD [address] [place] [id number] Discharge Disposition: Auto Discharge Social History Tobacco [...]
--- OUTSIDE RECORDS SUMMARY | 2024-09-20 16:43 | XMS_ITS | Encounter Summary ---
Author Organization [facility] Address [address] [place] [address] Care Team Providers Care Pulmonologist Intensivist Name Role Phone Veronica Jarvis MD, Aruna Primary Care Provider [phone] Encounter Details Date Type Department Care Team (Late st Contact Info) Description 09/05/2004 Results Only [facility] [address] [place] [address] Aruna Fuller MD [address] [place] [phone] Social History Tobacco Use Types Packs/Day Years Used Date Smoking Tobacco: Never Assessed Sex and Gender Information Value Date Recorded Sex Assigned at Not on file Gender Identity Not on file Sexual Orientation Not on file documented as of this encounter Plan of Treatment Not on file documented as of this encounter Procedures Procedure Name Priority Date/Time Associated Diagnosis Comments CYTOPATHOLOGY Routine 09/05/2004 0:00 EDT documented in this encounter Results * CYTOPATHOLOGY (09/05/2004 0:00 EDT) Pathology Report: CYTOPATHOLOGY REPORT Reports generated via electronic interface contain original data; however they are lacking the format of the original report. Caution should be taken when reading/interpreti ng unformatted reports. Name: ? KOLE ANGLIN ? Accession #: ? [id number] : ? 1955 (Age: 49) ??F ?Collect Date: ? 09/05/2004 Location: ? [facility] ? Receive Date: ? 09/06/2004 Provider: ?ARUNA FULLER MD Copy to: ? Specimen/Source: ?ThinPrep Pap Test, Cervix Last Menstrual Period: ? 08/09/2004 ? SPECIMEN ADEQUACY ? Satisfactory for Evaluation - transformation zone component absent GENERAL CATEGORIZATION ? Negative for Intraepithelial Lesion or Malignancy INTERPRETATION ? Shift in evgeny present suggestive of bacterial vaginosis. ? Document reviewed and electronically signed by: ? Vincent Johnson, LETICIA(ASCP) ? Report Date: ??09/12/2004 07:41 End of Report [facility] 09/05/2004 09/06/2004 Aruna Jarvis MD PATHOLOGY ORDERABLES Performing Organization Address City/State/[facility] Co de Phone Number [facility] [address] [place] [address] documented in this encounter Visit Diagnoses Not on filedocumented in this encounter Care Teams Pulmonologist Intensivist Relationship Specialty Start Date End Date Aruna Fuller MD [address] [place] [phone] PCP - General 04/30/09 04/15/17 documented as of this encounter
--- OUTSIDE RECORDS SUMMARY | 2024-09-20 16:43 | XMS_ITS | Encounter Summary ---
Author Organization [facility] Address [address] [place] [address] Care Team Providers Care Clam Grower Name Role Phone Laura Najera MD Primary Care Provide r Encounter Details Date Type Department Care Team (Latest Contact Info) Description 02/22/2021 Travel Social History Tobacco Use Types Packs/Day Years [...] on filedocumented in this encounter Care Teams Clam Grower Relationship Specialty Start Date End Date Laura Najera MD [address] [place] [address] PCP - General 04/16/17 documented as of this encounter
--- OUTSIDE RECORDS SUMMARY | 2024-09-20 16:43 | XMS_ITS | Referral Summary ---
Author Organization [facility] Address [address] [place] [address] Care Team Providers Care Manifest/Order Organizer Print Orders Name Role Phone Laura Najera MD Primary [...] Date Diagnosed Date Venous insufficiency, peripheral 09/11/2021 Social History Tobacco Use Types Packs/Day Years [...] on file Sexual Orientation Not on file Last Filed Vital Signs Vital Sign Reading [...] Body Mass Index 27.06 12/06/2021 0649 EST Functional Status Functional Status Response Date of [...] concentrating, remembering, or making decisions? No 04/16/2017 Plan of Treatment Not on file Procedures Procedure Name Priority Date/Time Associated Diagnosis Comments HEPATITIS C AB W REFLEX TO HCV RNA BY PCR Routine 12/02/2021 10:10 EST from Last 3 Months or Most Recently Relevant to Health Maintenance Results * HEPATITIS C AB W REFLEX TO HCV RNA BY PCR (12/02/2021 10:10 EST) Hep C Antibody Negative Negative 12/03/2021 14:54 EST [facility] Blood VENOUS BLOOD / Unknown 12/02/2021 10:10 EST 12/02/2021 20:51 EST Provider Outr Resulting Lab CHEMISTRY & BLOOD GAS ORDERABLES [facility] [address] [place] [address] from Last 3 Months or Most Recently Relevant to Health Maintenance Advance Directives For more information, please contact: [phone] * Full Code (Latest Code Status on File) Date Activated Date Inactivated Comments 12/06/2021 6:27 12/06/2021 13:03 Question Answer Comments When the patient has NO PULSE: Full Code / CPR Who Made the Decision? Default/Not Discussed Care Teams Manifest/Order Organizer Print Orders Relationship Specialty Start Date End Date Laura Najera MD [address] [place] [address] PCP - General 04/16/17
--- OUTSIDE RECORDS SUMMARY | 2024-09-20 16:43 | XMS_ITS | Encounter Summary ---
Author Organization [facility] Address [address] [place] [address] Care Team Providers Care Relocation Associate Name Role Phone Veronica Jarvis MD, Aruna Primary Care Provider [phone] Encounter Details Date Type Department Care Team (Late st Contact Info) Description 09/18/2010 Results Only [facility] - [facility] ([facility] [address] [place] [id number] Aruna Martin MD [address] [place] [phone] Social History Tobacco Use Types Packs/Day Years Used Date Smoking Tobacco: Never Assessed Sex and Gender Information Value Date Recorded Sex Assigned at Not on file Gender Identity Not on file Sexual Orientation Not on file documented as of this encounter Plan of Treatment Not on file documented as of this encounter Procedures Procedure Name Priority Date/Time Associated Diagnosis Comments CYTOPATHOLOGY Routine 09/18/2010 0:00 EDT documented in this encounter Results * CYTOPATHOLOGY (09/18/2010 0:00 EDT) Pathology Report: CYTOPATHOLOGY REPORT ? Reports generated via electronic interface contain original data; ? however they are lacking the format of the original report. ? Caution should be taken when reading/interpreti ng unformatted reports. ? Name: ? KOLE ANGLIN ? Accession #: ? [id number] ? : ? 1955 (Age: 55) ??F ?Collect Date: ? 09/18/2010 ? Location: ? [facility] ? Receive Date: ? 09/20/2010 ? Provider: ARUNA VIJUPS MD ? Copy to: ? Final Report ? SPECIMEN ADEQUACY ? Satisfactory for Evaluation ? - transformation zone component present ? GENERAL CATEGORIZATION ? Negative for Intraepithelial Lesion or Malignancy ? INTERPRETATION ? Shift in evgeny present suggestive of bacterial vaginosis. ? Last Menstural Period: 2 years ? Specimen/Source: ??Pap Test, Cervix, ThinPrep Imaging System with manual ? evaluation ? Document reviewed and electronically signed by: ? Meg E. Marian, [place](ASCP) ? Report ??Date: 09/24/2010 10:37 ? HPV with Pap Test ? Date Ordered: ? 09/24/2010 ? Status: ?? Signed Out ?Date Complete: ? 09/26/2010 ? By: ??System Interface ? Date Reported: ? 09/26/2010 ? Interpretation ? RESULT: Negative for HPV types 16, 18, 31, 33, 35, 39, 45, 51, 52, ? 56, 58, 59, and 68. ? Comments ? Document reviewed and electronically signed by: ? System Interface ? Report date: 09/26/2010 ? By the signature above, the attending physician certifies that he/she has ? personally conducted a gross and/or microscopic examination of the described ? specimens and rendered or confirmed the above diagnosis. ? End of Report ? [facility] 09/18/2010 09/20/2010 Aruna Jarvis MD PATHOLOGY ORDERABLES Performing Organization Address City/State/[facility] Co de Phone Number [facility] [address] [place] [address] documented in this encounter Visit Diagnoses Not on filedocumented in this encounter Care Teams Relocation Associate Relationship Specialty Start Date End Date Aruna Martin MD [address] [place] [phone] PCP - General 04/30/09 04/15/17 documented as of this encounter
--- OUTSIDE RECORDS SUMMARY | 2024-09-20 16:43 | XMS_ITS | Encounter Summary ---
Author Organization [facility] Address [address] [place] [address] Care Team Providers Care Grocery Carrier Name Role Phone Laura Najera MD Primary Care Provide r Reason for Visit * Reason Onset Date Comments COVID-19 09/19/2021 Encounter Details Date Type Department Care Team (Late st Contact Info) Description 09/19/2021 Telephone [facility] [address] [place] [address] Thuan Jimenez MD COVID-19 Social History Tobacco Use Types Packs/Day Years [...] No 04/16/2017 documented as of this encounter Miscellaneous Notes * Telephone Encounter - Flavia Lauren - 09/19/2021 1029 EDT Patient advised they would like covid testing done at [facility]. Calculus Professor faxed the order to [phone] and asked that they schedule the patient for testing on 09/24. Also made patient aware of testing date. Calculus Professor will also remove patient from the work queue. documented in this encounter Plan of Treatment Not on file documented as of this encounter Visit Diagnoses Not on filedocumented in this encounter Care Teams Grocery Carrier Relationship Specialty Start Date End Date Laura Najera MD [address] [place] [address] PCP - General 04/16/17 documented as of this encounter
--- OUTSIDE RECORDS SUMMARY | 2024-09-20 16:43 | XMS_ITS | Encounter Summary ---
Author Organization [facility] Address [address] [place] [address] Care Team Providers Care Farm Mechanic Name Role Phone Veronica Jarvis MD, Aruna Primary Care Provider [phone] Encounter Details Date Type Department Care Team (Late st Contact Info) Description 04/30/2009 Orders Only [facility] [address] [place] [address] Aruna Martin MD [address] [place] [phone] Social History Tobacco Use Types Packs/Day Years Used Date Smoking Tobacco: Never Assessed Sex and Gender Information Value Date Recorded Sex Assigned at Not on file Gender Identity Not on file Sexual Orientation Not on file documented as of this encounter Plan of Treatment Not on file documented as of this encounter Procedures Procedure Name Priority Date/Time Associated Diagnosis Comments RAD US PELVIS TRANSABDOMINAL AND TRANSVAGINAL 04/30/2009 8:59 EDT documented in this encounter Results * RAD US PELVIS TRANSABDOMINAL AND TRANSVAGINAL (04/30/2009 8:59 EDT) Anatomical Region Laterality Modality Other 04/30/2009 8:59 EDT 04/30/2009 9:48 EDT Narrative 04/30/2009 9:48 EDT Pelvic ultrasound 04/30/2009 History: Left adnexal pain, intermittent and severe Transabdominal and transvaginal scans were performed. The uterus is normal in size measuring 6.7 x 4.1 x 3.5 cm. The echotexture is heterogeneous but no focal mass is seen within the uterus. The endometrial lining also appear somewhat heterogeneous but is normal in thickness measuring 6 mm. The ovaries are normal in size and appearance; the right ovary measures 1.3 x 1.0 x 0.8 cm, and the left ovary measures 2.0 x 2.0 x 1.0 cm. There is no free fluid in the pelvis. Impression: Heterogeneous appearance of the uterus, this is a nonspecific finding. The ultrasound is otherwise normal. Procedure Note 04/30/2009 Pelvic ultrasound 04/30/2009 History: Left adnexal pain, intermittent and severe Transabdominal and transvaginal scans were performed. The uterus is normal in size measuring 6.7 x 4.1 x 3.5 cm. The echotexture is heterogeneous but no focal mass is seen within the uterus. The endometrial lining also appear somewhat heterogeneous but is normal in thickness measuring 6 mm. The ovaries are normal in size and appearance; the right ovary measures 1.3 x 1.0 x 0.8 cm, and the left ovary measures 2.0 x 2.0 x 1.0 cm. There is no free fluid in the pelvis. Impression: Heterogeneous appearance of the uterus, this is a nonspecific finding. The ultrasound is otherwise normal. Aruna Jarvis MD IMG US ORDERABLES documented in this encounter Visit Diagnoses Not on filedocumented in this encounter Care Teams Farm Mechanic Relationship Specialty Start Date End Date Aruna Martin MD [address] [place] [phone] PCP - General 04/30/09 04/15/17 documented as of this encounter
--- OUTSIDE RECORDS SUMMARY | 2024-09-20 16:43 | XMS_ITS | Encounter Summary ---
Author Organization [facility] Address [address] [place] [address] Care Team Providers Care Gate Clerk Name Role Phone Laura Najera MD Primary Care Provide r Reason for Visit * Reason Onset Date Comments COVID-19 12/02/2021 Encounter Details Date Type Department Care Team (Late st Contact Info) Description 12/02/2021 Telephone [facility] - [employer] [address] [place] [address] Thuan Jimenez MD COVID-19 Social History Tobacco [...] encounter Miscellaneous Notes * Telephone Encounter - Niya Hughes - 12/02/2021 0927 EST Patient advised they would like covid testing done at [facility]. Splitting Machine Operator Helper faxed the order and asked that they schedule the patient for testing on 12/03/21. Also made patient aware of testing date. Splitting Machine Operator Helper will also remove patient from the work queue. documented in this encounter Plan of Treatment Not on file documented as of this encounter Visit Diagnoses Not on filedocumented in this encounter Care Teams Gate Clerk Relationship Specialty Start Date End Date Laura Najera MD [address] [place] [address] PCP - General 04/16/17 documented as of this encounter
--- OUTSIDE RECORDS SUMMARY | 2024-09-20 16:43 | XMS_ITS | Encounter Summary ---
Author Organization [facility] Address [address] [place] [address] Care Team Providers Care Enamel Cracker Name Role Phone Laura Najera MD Primary Care Provide r Encounter Details Date Type Department Care Team (Late st Contact Info) Description 09/26/2021 Orders Only [facility] Vascular Surgery - [address] [address] Caro Meek RN Venous insufficiency (Primary Dx) Social History Tobacco Use Types [...] No 04/16/2017 documented as of this encounter Progress Notes * Caro Meek RN - 09/26/2021 1641 EDT covid orders placed CARO MEEK RN 09/26/2021 16:42 documented in this encounter Plan of Treatment Not on file documented as of this encounter Visit Diagnoses Diagnosis Venous insufficiency- Primary Unspecified venous (peripheral) insufficiency documented in this encounter Care Teams Enamel Cracker Relationship Specialty Start Date End Date Laura Najera MD [address] [place] [address] PCP - General 04/16/17 documented as of this encounter
--- OUTSIDE RECORDS SUMMARY | 2024-09-20 16:43 | XMS_ITS | Encounter Summary ---
Author Organization [facility] Address [address] [place] [address] Care Team Providers Care X Ray Equipment Mechanic Name Role Phone Veronica Jarvis MD, Aruna Primary Care Provider [phone] Encounter Details Date Type Department Care Team (Late st Contact Info) Description 04/07/2007 Results Only [facility] - [employer] [address] [place] [address] Aruna Fuller MD [address] [place] [phone] Social History Tobacco Use Types Packs/Day Years Used Date Smoking Tobacco: Never Assessed Sex and Gender Information Value Date Recorded Sex Assigned at Not on file Gender Identity Not on file Sexual Orientation Not on file documented as of this encounter Plan of Treatment Not on file documented as of this encounter Procedures Procedure Name Priority Date/Time Associated Diagnosis Comments CYTOPATHOLOGY Routine 04/07/2007 0:00 EDT documented in this encounter Results * CYTOPATHOLOGY (04/07/2007 0:00 EDT) Pathology Report: CYTOPATHOLOGY REPORT Reports generated via electronic interface contain original data; however they are lacking the format of the original report. Caution should be taken when reading/interpreti ng unformatted reports. Name: ? KOLE ANGLIN ? Accession #: ? [id number] : ? 1955 (Age: 52) ??F ?Collect Date: ? 04/07/2007 Location: ? [facility] ? Receive Date: ? 04/09/2007 Provider: ?ARUNA FULLER MD Copy to: ? Specimen/Source: ?ThinPrep Pap Test, Cervix, processed on [employer] ThinPrep Imaging System, with manual evaluation Last Menstrual Period: ? 10 months ago Other: ? HPVA - HPV testing requested if ASC-US on the current ThinPrep Pap test. ? SPECIMEN ADEQUACY ? Satisfactory for Evaluation - transformation zone component absent GENERAL CATEGORIZATION ? Negative for Intraepithelial Lesion or Malignancy INTERPRETATION ? Shift in evgeny present suggestive of bacterial vaginosis. ? Document reviewed and electronically signed by: ? LETICIA Walsh(ASCP) ? Report Date: ??04/13/2007 13:37 End of Report [facility] 04/07/2007 04/09/2007 Aruna Jarvis MD PATHOLOGY ORDERABLES Performing Organization Address City/State/[facility] Co de Phone Number [facility] [address] [place] [address] documented in this encounter Visit Diagnoses Not on filedocumented in this encounter Care Teams X Ray Equipment Mechanic Relationship Specialty Start Date End Date Aruna Fuller MD [address] [place] [phone] PCP - General 04/30/09 04/15/17 documented as of this encounter
--- OUTSIDE RECORDS SUMMARY | 2024-09-20 16:43 | XMS_ITS | Encounter Summary ---
Author Organization [facility] Address [address] [place] [address] Care Team Providers Care Revenue Accounting Manager Name Role Phone Laura Najera MD Primary Care Provide r Encounter Details Date Type Department Care Team (Latest Contact Info) Description 12/05/2021 Travel Social History Tobacco Use Types Packs/Day [...] have Coronavirus / COVID-19? No / Unsure 12/05/2021 14:31 EST documented as of this encounter Functional [...] on filedocumented in this encounter Care Teams Revenue Accounting Manager Relationship Specialty Start Date End Date Laura Najera MD [address] [place] [address] PCP - General 04/16/17 documented as of this encounter
--- OUTSIDE RECORDS SUMMARY | 2024-09-20 16:43 | XMS_ITS | Encounter Summary ---
Author Organization [facility] Address [address] [place] [address] Care Team Providers Care Wharf Builder Name Role Phone Laura Najera MD Primary Care Provide r Encounter Details Date Type Department Care Team (Late st Contact Info) Description 09/17/2021 Orders Only [facility] Vascular Surgery - [address] [address] Mitchel Welch RN Preop testing (Primary Dx) Social History Tobacco Use Types [...] as of this encounter Progress Notes * Mitchel Welch RN - 09/17/2021 1655 EDT Covid orders. MITCHEL WELCH RN 09/17/2021 14:41 documented in this encounter Plan of Treatment Not on file documented as of this encounter Visit Diagnoses Diagnosis Preop testing- Primary Preoperative examination, unspecified documented in this encounter Care Teams Wharf Builder Relationship Specialty Start Date End Date Laura Najera MD [address] [place] [address] PCP - General 04/16/17 documented as of this encounter
--- OUTSIDE RECORDS SUMMARY | 2024-09-20 16:43 | XMS_ITS | Encounter Summary ---
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 [I83.11] Procedures PA ENDOVENOUS RF, 1ST VEIN Right leg radiofrequency ablation of greater saphenous vein Referral ID Status Reason Start Date Expiration Date Visits Re quested Visits Authorized [id number] 1 1 Encounter Details Date Type Department Care Team (Latest Contact Info) Description 12/06/2021 6:15 EST - 12/06/2021 11:02 EST Hospital Encounter [facility] Operating Room [address] [place] [address] Thuan Jimenez MD Varicose veins of right lower extremity with inflammation Discharge Disposition: Home or Self Care Social [...] 6:33 EST documented as of this encounter Last Filed Vital Signs Vital Sign Reading Time Taken Comments Blood Pressure 123/62 12/06/2021 0953 EST Pulse 66 12/06/2021 0633 EST Temperature 36.2 ??C (97.1 ??F) 12/06/2021 0945 EST Respiratory Rate 12 12/06/2021 0945 EST Oxygen Saturation 95% 12/06/2021 0953 EST Inhaled Oxygen Concentration - - Weight 60.8 kg (134 lb) 12/06/2021 0649 EST Height 149.9 cm (4' 11) 12/06/2021 0649 EST Body Mass Index 27.06 12/06/2021 0649 EST documented in this encounter Functional Status Functional [...] 04/16/2017 documented as of this encounter Discharge Instructions * Discharge Instr - AVS First Page* Thuan Jimenez MD - 12/06/2021 8:36 EST Discharge Instructions Following Varicose Vein Surgery of the Lower Extremity *IT IS ESSENTIAL TO MAINTAIN A MODERATE LEVEL OF ACTIVITY THROUGHOUT THE DAY OF SURGERY TO PROMOTE BLOOD FLOW TO THE GOOD VEINS. ACTIVITY Walking for a minimum of 2-3 minutes every half hour will reduce the risk of forming blood clots. This walking regimen should be maintained until bedtime. You do not have to walk at night. Resumption of normal everyday activities should begin the following morning. All vigorous activities (aerobics, hiking, gardening, skiing, yoga, etc.) that involve intense sweating, stretching the leg, or the potential for getting the incisions dirty, should be avoided for 3 days. You may shower with the dressings in place Most patients are back to work within 3-4 business days but some require as much as a week???s timeto recover. Time away from work is difficult to predict and is dependent upon the type of job and an individual???s response to surgery. DRESSINGS Leave stocking and all dressings intact for two days following surgery. Wear the compression stockings during that time. Remove the gauze dressing two days after your surgery. After removing there dressing continue wearing compression stockings during the day until you are seen in the office for your postoperative appointment. Your provider will discuss need to continue. Steri-strips should stay on until they start to peel off. If they remain longer than one week following the procedure you may take them off. It is more comfortable to take dressings off during a shower. If you have sutures, they will be removed at your follow up appointment. PUNCTURE It is normal to experience some tenderness and possibly bruising along the puncture. If you have bleeding from the puncture, apply direct pressure over the wound and elevate your leg above the level of your heart (toes at the level of your nose). The bleeding should stop after several minutes. PAIN MEDICATION Most patients do require some pain medication the night following the surgery but this is variable.You may take Tylenol or Advil as needed. *CALL YOUR PHYSICIAN IF YOU EXEPERIENCE ANY OF THE FOLLOWING: Prolonged tenderness, redness, drainage or warmth along the treated segment Moderate to severe pain preventing return to normal activities Shortness of Breath Swelling in the treated limb Persistent bleeding from an incision *FOLLOW-UP IN THE OFFICE DIRECTED You should have an appointment scheduled for within the next 1-2 weeks. If you have any questions or are unaware of your appointment time, please call our clinic. Vascular Clinic 5th floor [facility], [facility] . Our clinic offices are open for your questions from 9am-5pm daily Thursday-Thursday. Emergencies can becalled in to the covering physician during off hours. documented in this encounter Medications at Time of Discharge Medication Sig Dispensed Refills Start Date End Date acetaminophen (TYLENOL) 325 mg tablet Take 650 mg by mouth every 4 hours as needed for Pain. cholecalciferol, Vitamin D3, 25 mcg (1,000 unit) tablet Take 2,000 Units by mouth daily. sertraline (ZOLOFT) 25 mg tablet Take 150 mg by mouth daily. documented as of this encounter Discharge Disposition Disposition Code Departure Means Destination Comment s Home or Self Care Car Home home with responsible adult documented in this encounter H&P Notes * Thuan Jimenez MD - 12/06/2021 0735 EST The preoperative history and physical which was performed within 30 days of this procedure has been reviewed and the clinically appropriate elements of the physical examination have been repeated. There are no changes to the documented history and physical or if so such changes are documented below Thuan Jimenez MD 12/06/2021 7:35 documented in this encounter OR Notes * OR Surgeon - Thuan Jimenez MD - 12/06/2021 0830 EST Right leg radiofrequency ablation of greater saphenous vein (R) Operative Note Date: 12/06/2021 [place] [facility] [place]: Mariely Uribe, : 1955, Diagnosis Pre-Op Diagnosis Codes: * Varicose veins of right lower extremity with inflammation [I83.11] Post-op Diagnosis * Varicose veins of right lower extremity with inflammation [I83.11] Procedures Right leg radiofrequency ablation of greater saphenous vein [address] - PA ENDOVENOUS RF, 1ST VEIN Surgeons * Thuan Jimenez MD - Primary Procedure Summary Anesthesia: Patient Choice ASA: III Estimated Blood Loss: No Blood Loss Documented Total IV Fluids: n/a mL LDAs: Peripheral IV 12/06/21 0700 Left;Posterior Hand (Active) Wound Anterior;Distal;Right;Superior Leg (Active) Staff: Customer Care Assistant: Amber Delacruz RN Scrub Person: Eliezer Denis Jawbone Breaker: Jennifer Larsen RN Indications: Mariely Uribe is an 66 y.o. female who is having surgery for Varicose veins of right lower extremity with inflammation [I83.11] Procedure Details: The patient was seen in the preoperative area. The risks, benefits, complications, treatment options, non-operative alternatives, expected recovery and outcomes were discussed with the patient. The possibilities of reaction to medication, pulmonary aspiration, injury to surrounding structures, bleeding, recurrent infection, the need for additional procedures, failure to diagnose a condition, and creating a complication requiring transfusion or operation were discussed with the patient. The patient concurred with the proposed plan, giving informed consent.?? The site of surgery was properly noted/marked if necessary per policy. The patient has been actively warmed in preoperative area. Preope rative antibiotics have been ordered and given within 1 hours of incision. Venous thrombosis prophylaxis are not indicated. Findings: The patient was brought to the OR, MAC anesthesia administered, then supine position. Right leg shaved, prepped and draped in sterile fashion. Appropriate timeout. R GSV identified at the saphenofemoral junction, it traveled only a couple cm before branching into numerous small tributaries. Mid-thigh the right GSV was found again, quite large, and travelled down to the patient's ankle. Just belowthe knee the GSV was accessed with a needle, wire placed and 7F sheath. RFA catheter prepped in standard fashion placed as high up the GSV as possible to the mid thigh. Saline with 20cc 1% lidocaine was injected throughout the course of the vein. Then was ablated - 2 treatments on most cranial secti on, the sequentially ablated until completed. Catheter and sheath removed. Complications: None; patient tolerated the procedure well. Disposition: PACU - hemodynamically stable. Condition: stable Specimens:None Implants: none Thuan Jimenez MD documented in this encounter Plan of Treatment Not on file documented as of this encounter Procedures Procedure Name Priority Date/Time Associated Diagnosis Comments INVASIVE VASCULAR PROCEDURE Routine 12/06/2021 8:35 EST Varicose veins of right lower extremity with inflammation documented in this encounter Results * ENDOVENOUS ABLATION, INCOMPETENT EXT: FIRST VEIN (12/06/2021 8:35 EST) Anatomical Region Laterality Modality Other Narrative 12/06/2021 8:29 EST Refer to the operative note for the procedure summary. Thuan Jimenez MD CV INVASIVE VASCU LAR PROCS documented in this encounter Visit Diagnoses Diagnosis Varicose veins of right lower extremity with inflammation Varicose veins of lower extremities with inflammation Varicose veins of right lower extremity with inflammation Varicose veins of lower extremities with inflammation documented in this encounter Administered Medications Inactive Administered Medications - up to 3 most recent administrations Medication Order MAR Action Action Date Dose Rate Site acetaminophen (OFIRMEV) IV solution 1,000 mg 1,000 mg, intravenous, NOW X1, 1 dose, On Thu12/06/21 at 0900, Routine, Recovery (only) Given 12/06/2021 9:01 EST 1,000 mg ceFAZolin in dextrose 5 % (ANCEF) IVPB DUPLEX 2 g 2 g, intravenous, Administer over 30 Minutes, PRE-OP ONCE, 1 dose, On Thu12/06/21 at 0645, Routine, Preprocedure Given 12/06/2021 7:01 EST 2 g IV lactated ringers (LR) infusion at 50 mL/hr, 1,000 mL, intravenous, PACU CONTINUOUS, Starting on Thu12/06/21 at 0900, Until Thu12/06/21 at 0903, Routine, Recovery (only) New Bag 12/06/2021 8:41 EST 150 mL 50 mL/hr lactated ringers (LR) infusion at 30 mL/hr, intravenous, CONTINUOUS, Starting on Thu12/06/21 at 0645, Until Thu12/06/21 at 1303, Routine, Preprocedure Restarted 12/06/2021 8:25 EST Continued by Anesthesia 12/06/2021 7:38 EST 30 mL/hr New Bag 12/06/2021 7:01 EST 1,000 mL 30 mL/hr IV documented in this encounter Historical Medications * This list may reflect changes made after this encounter. Medication Sig Dispensed Refills Start Date End Date acetaminophen (TYLENOL) 325 mg tablet Take 650 mg by mouth every 4 hours as needed for Pain. added in this encounter Active and Recently Administered Medications Times are shown in EST. Scheduled Medication Order 12/04/2021 12/05/2021 12/06/2021 acetaminophen (OFIRMEV) IV solution 1,000 mg (CANCELED) 1,000 mg, intravenous, NOW X1, 1 dose, On Thu12/06/21 at 0900, Routine, Recovery (only) 0901 (Given - Provid er: Patty Barab RN) ceFAZolin in dextrose 5 % (ANCEF) IVPB DUPLEX 2 g (COMPLETED) 2 g, intravenous, Administer over 30 Minutes, PRE-OP ONCE, 1 dose, On Thu12/06/21 at 0645, Routine, Preprocedure 0701 (Given - Provid er: Kenia Brennan RN) Continuous Medication Order 12/04/2021 12/05/2021 12/06/2021 lactated ringers (LR) infusion (CANCELED) at 50 mL/hr, 1,000 mL, intravenous, PACU CONTINUOUS, Starting on Thu12/06/21 at 0900, Until Thu12/06/21 at 0903, Routine, Recovery (only) 0841 (New Bag - Prov ider: Patty Barba, RN)0940 (IV Stopped - Provider: Patty Barba, RN) lactated ringers (LR) infusion at 30 mL/hr, intravenous, CONTINUOUS, Starting on Thu12/06/21 at 0645, Until Thu12/06/21 at 1303, Routine, Preprocedure 0701 (New Bag - Prov ider: Kenia Brennan RN)0738 (Continued by Anesthesia - Provider: Isaias Copeland CRNA)0824 (Paused - Provider: Isaias Copeland CRNA - Comment: Switch to gravity)0825 (Restarted - Provider: Isaias Copeland CRNA) PRN Medication Order 12/04/2021 12/05/2021 12/06/2021 lidocaine 1 % injection (CANCELED) PRN, Starting on Thu12/06/21 at 0809, Until Thu12/06/21 at 0829, Routine, Intraprocedure 0809 (Given - Provid er: Thuan Jimenez MD - Comment: injected in right leg 21ml lidocaine in60 ml injectable saline) documented in this encounter Orders Medications Ordered That Noah ht Not Have Been Administered Count Last Ordered Date First Ordered Date chlorhexidine gluconate 2 % cloth 1 Each 1 12/06/2021 fentaNYL citrate (PF) injection 25 mcg 1 lidocaine (PF) 10 mg/mL (1 % ) injection 2 mg 1 12/06/2021 lidocaine 1 % injection 1 12/06/2021 ondansetron (PF) (ZOFRAN) injection 4 mg 1 12/06/2021 sodium chloride 0.9 % (NS) infusion 1 12/06 Discharge Count Last Ordered Date First Orde red Date DISCHARGE PATIENT 1 12/06/2021 documented in this encounter Care Teams Schedule Checker Relationship Specialty Start Date End Date Laura Najera MD [address] [place] [address] PCP - General 04/16/17 documented as of this encounter
--- OUTSIDE RECORDS SUMMARY | 2024-09-20 16:43 | XMS_ITS | Encounter Summary ---
Author Organization [facility] Address [address] [place] [address] Care Team Providers Care Outdoor Pursuits Instructor Name Role Phone Unavailable Primary Care Provider Unavailabl e Encounter Details Date Type Department Care Team (Late st Contact Info) Description 09/05/2004 11:40 EDT Hospital Encounter [facility] - Other [address] [place] [address] Aruna Martin MD [address] [place] [phone] Social History Tobacco Use Types Packs/Day [...]
--- OUTSIDE RECORDS SUMMARY | 2024-09-20 16:43 | XMS_ITS | Encounter Summary ---
Author Organization [facility] Address [address] [place] [id number] Care Team Providers Care Vending Machine Technician Name Role Phone Laura Najera MD Primary Care Provide r Reason for Visit * Reason Comments Post-OP Follow Up 1st post op for rt l eg vein surgery Encounter Details Date Type Department Care Team (Late st Contact Info) Description 12/13/2021 10:30 EST Post-op Visit [facility] Vascular [place] [address] Nurse Practitioner, [facility] Vasc Surg Venous insufficiency, peripheral (Primary [...] left Pulse 56 12/13/2021 1031 EST Temperature - - Respiratory Rate - - Oxygen Saturation 94% 12/13/2021 1031 EST Inhaled Oxygen Concentration - - Weight - - Height - - Body Mass Index - - documented in this encounter Functional Status Functional [...] as of this encounter Progress Notes * Alice Reyes NP - 12/13/2021 1030 EST Post-op check: I am seeing Mariely Uribe for a postoperative follow up s/p right leg RF ablation of greater saphenous vein on 12/06/21 by Barbara for chronic venous insufficiency with symptomatic varicosities. Mariely Uribe reports she has felt well postoperatively, denying any chest pain, shortness of breath,fever/chills, unusual swelling in her legs or any undue pain. The patient reports that she did ambulate for a few minutes every 30 minutes as directed on the day of surgery. She has returned to herusual level of activity. Overall, she states the day of surgery went well. On exam, she is alert, cooperative and in no acute distress. Breathing is nonlabored. The patient is not wearing compression stockings today but has been wearing knee high stockings since POD#3. her right leg incision is intact and healing well. There is no drainage or erythema around the incisions, no tenderness to palpation and no edema noted. She has scattered telangiectasias noted to both lower legs and ankles. 2+ DP pulses bilaterally. Assessment and Plan: Mariely Uribe is a 66 y.o. woman status post right leg radiofrequency ablation who is recovering well post-operatively. There is no evidence of wound infection, DVT or PE. We discussed skin and wound care, pain control, the role of compression therapy, leg elevation and follow up. She has also previously undergone high ligation of the left GSV and microphlebectomy x 17 08/2021.She will follow up with Dr. Jimenez in 3 months to discuss sclerotherapy of small reticular veins/telangiectasias. The patient left the clinic feeling well. Alice Reyes NP 12/13/2021 10:59 documented in this encounter Plan of Treatment Not on file documented as of this encounter Visit Diagnoses Diagnosis Venous insufficiency, peripheral- Primary Unspecified venous (peripheral) insufficiency documented in this encounter Care Teams Vending Machine Technician Relationship Specialty Start Date End Date Laura Najera MD [address] [place] [address] PCP - General 04/16/17 documented as of this encounter
--- OUTSIDE RECORDS SUMMARY | 2024-09-20 16:43 | XMS_ITS | Encounter Summary ---
Author Organization [facility] Address [address] [place] [address] Care Team Providers Care Talent Partner Name Role Phone Laura Najera MD Primary Care Provide r Reason for Visit * Reason Comments Follow-up u/s first Encounter Details Date Type Department Care Team (Latest Contact Info) Description 06/21/2021 13:30 EDT Office Visit [facility] [address] [place] [id number] Thuan Jimenez MD Venous insufficiency of lower extremity, unspecified laterality (Primary Dx) Social History Tobacco Use Types Packs/Day Years Used Date Smoking Tobacco: Former Smokeless Tobacco: Never Tobacco Cessation:Counseling Given: Yes Interpersonal Safety Answer Date Record ed Physically Hurt Never 01/27/2021 Verbally Threaten Not on file 01/27/2021 Sex and Gender Information Value Date Recorded Sex Assigned at Not on file Gender Identity Not on file Sexual Orientation Not on file documented as of this encounter Last Filed Vital Signs Vital Sign Reading Time Taken Comments Blood Pressure 100/84 06/21/2021 1308 EDT Pulse - - Temperature - - Respiratory Rate - - Oxygen Saturation - - Inhaled Oxygen Concentration - - Weight - [...] as of this encounter Progress Notes * Thuan Jimenez MD - 06/21/2021 2190 EDT CC: BLE venous insufficiency SUBJECTIVE: The patient complains of varicose veins in the legs. She's had them for years, slowly worsening. Associated aches, heaviness, edema, cramping, and phlebitis. Denies ulcer, DVT, or bleeding. Worn compression for years with mild relief of symptoms Past Medical History: Diagnosis Date ??? Hyperlipidemia There is no problem list on file for this patient. No past surgical history on file. Family History Problem Relation Age of Onset ??? Heart Disease Father ??? Stroke Father Social History Socioeconomic History ??? Marital status: Spouse name: Not on file ??? Number of children: Not on file ??? Years of education: Not on file ??? Highest education level: Not on file Occupational History ??? Not on file Tobacco Use ??? Smoking status: Former Smoker ??? Smokeless tobacco: Never Used Substance and Sexual Activity ??? Alcohol use: Not on file ??? Drug use: Not on file ??? Sexual activity: Not on file Other Topics Concern ??? Not on file Social History Narrative ??? Not on file Social Determinants of Health Financial Resource Strain: ??? Difficulty of Paying Living Expenses: Food Insecurity: ??? Worried About Running Out of Food in the Last Year: ??? Ran Out of Food in the Last Year: Transportation Needs: ??? Lack of Transportation (Medical): ??? Lack of Transportation (Non-Medical): Physical Activity: ??? Days of Exercise per Week: ??? Minutes of Exercise per Session: Stress: ??? Feeling of Stress : Social Connections: ??? Frequency of Communication with Friends and Family: ??? Frequency of Social Gatherings with Friends and Family: ??? Attends Hinduism Services: ??? Active Member of Clubs or Organizations: ??? Attends Club or Organization Meetings: ??? Marital Status: Current Outpatient Medications Medication ??? cholecalciferol, Vitamin D3, 25 mcg (1,000 unit) tablet ??? sertraline (ZOLOFT) 25 mg tablet ??? simvastatin (ZOCOR) 20 mg tablet No current facility-administered medications for this visit. No Known Allergies General Healthy-appearing 66 y.o. white female in no apparent distress who looks her stated age. Eyes: scelra non-icteric Musculoskeletal: No joint effusions or tenderness. Extremities: No bony abnormality. No joint effusions. Varicose veins palpable BLE, Left worse than right, edema noted Skin: Warm and pink. No lesions or stasis dermatitis. Hematologic: There is no bruising. Neurologic: Gait and stance are normal; Strength Upper and lower extremities, 5/5. There is no tremor or slurred speech. Vascular: warm, pink, capillary refill brisk ? DIAGNOSTIC DATA: R GSV mid thigh down with reflux L GSV junction to mid thigh reflux with varicosity IMPRESSION: BLE reflux s/p previous treatments Varicose Vein Conservative Measures Laterality: bilateral Has the patient worn compression stockings for minimum of 3 months? Yes How effective are the stockings? Did they help or hinder? Help Any edema or swelling in Legs? Yes Any bleeding? No Does patient avoid standing or sitting in one position for more than 30 minutes? Yes Does the patient elevate their legs above level of the heart during the day to alleviate pain? Yes How often? daily Does patient avoid sitting with legs crossed? Yes How often does the patient exercise? (I.e walking) time/week? Duration? How far? daily What is the patient's pain levels on a scale of 1-10 (10 being the worst)? 5 Do the varicose veins effect the patient's activities of daily living? Yes What activities? ambulation Does the patient take any medications for pain? No If so, what? n/a Does the patient tolerate NSAID'S? Yes Does the patient avoid alcohol? Yes Does the patient avoid high sodium foods? Yes Has the patient lost weight? No Has the patient failed compression stock wearing? Yes PLAN: CEAP 3 disease - LLE GSV high ligation with microphleb first - RLE GSV ablation do second documented in this encounter Plan of Treatment Not on file documented as of this encounter Visit Diagnoses Diagnosis Venous insufficiency of lower extremity, unspecified laterality- Primary documented in this encounter Care Teams Talent Partner Relationship Specialty Start Date End Date Laura Najera MD [address] [place] [address] PCP - General 04/16/17 documented as of this encounter
--- OUTSIDE RECORDS SUMMARY | 2024-09-20 16:43 | XMS_ITS | Encounter Summary ---
Author Organization [facility] Address [address] [place] [address] Care Team Providers Care Survey Worker Name Role Phone Laura Najera MD Primary Care Provide r Encounter Details Date Type Department Care Team (Latest Contact Info) Description 12/06/2021 Travel Social History Tobacco Use Types Packs/Day [...] on filedocumented in this encounter Care Teams Survey Worker Relationship Specialty Start Date End Date Laura Najera MD [address] [place] [address] PCP - General 04/16/17 documented as of this encounter
--- OUTSIDE RECORDS SUMMARY | 2024-09-20 16:43 | XMS_ITS | Encounter Summary ---
Author Organization [facility] Address [address] [place] [address] Care Team Providers Care Journeyman Press Operator Name Role Phone Unavailable Primary Care Provider Unavailabl e Encounter Details Date Type Department Care Team (Late st Contact Info) Description 08/25/2006 8:00 EDT - 08/25/2006 11:59 EDT Hospital Encounter [address] [address] Rosario Webster MD [address] [place] [phone] Discharge Disposition: Auto Discharge Social History Tobacco [...] Procedure Name Priority Date/Time Associated Diagnosis Comments HAND 3 OR MORE VIEWS 08/25/2006 10:35 EDT documented in this encounter Results * HAND 3 OR MORE VIEWS (08/25/2006 10:35 EDT) Anatomical Region Laterality Modality Other 08/25/2006 10:3 5 EDT Narrative 06/09/2009 1:57 EDT crush injury to left hand after repair RIGHT HAND, THREE OR MORE VIEWS, 08/25/2006, 1015 CLINICAL HISTORY: Crush injury to left hand. Three views were obtained. FINDINGS: The bones and soft tissues are within normal limits. ??No fracture is identified. IMPRESSION: Normal examination of the right hand with no evidence of fracture. D: ??08/25/2006 T: ??08/26/2006 /[facility]. Procedure Note Yifan Gary MD - 06/09/2009 crush injury to left hand after repair RIGHT HAND, THREE OR MORE VIEWS, 08/25/2006, 1015 CLINICAL HISTORY: Crush injury to left hand. Three views were obtained. FINDINGS: The bones and soft tissues are within normal limits. No fracture is identified. IMPRESSION: Normal examination of the right hand with no evidence of fracture. /[facility]. Evelia Baxter MD IMG DIAGNOSTIC IMAG ING ORDERABLES documented in this encounter Visit Diagnoses Not on filedocumented in this encounter
--- OUTSIDE RECORDS SUMMARY | 2024-09-20 16:43 | XMS_ITS | Encounter Summary ---
Author Organization [facility] Address [address] [place] [address] Care Team Providers Care Type Copy Examiner Name Role Phone Veronica Jarvis MD, Aruna Primary Care Provider [phone] Encounter Details Date Type Department Care Team (Late st Contact Info) Description 09/11/2006 Office Visit [facility] - Maple conversion [address] [place] [address] Katie Veras NP [address] [place] [address] Social History Tobacco Use Types Packs/Day Years Used Date Smoking Tobacco: Never Assessed Sex and Gender Information Value Date Recorded Sex Assigned at Not on file Gender Identity Not on file Sexual Orientation Not on file documented as of this encounter Progress Notes * Kinjal Veras NP - 01/24/2010 0026 EST Care Center - Physician Summary Registration Date/Time: 09/11/2006 15:13 Time Seen: 16:52 . Arrived- By private vehicle. Historian - patient. HISTORY OF PRESENT ILLNESS Patient seen at [facility] 2.5 weeks ago for a laceration to the dorsum of her right hand. She was sutured and placed on antibiotics. She returned 1 week ago for suture removal and a recheck. At that time she was instructed to return in 1 week for a follow up. She notes continued numbness surrounding thewound, and a feeling of tightness to the wound. She denies any pain, fever or chills. She is ableto work with her hand, and does not reports any weakness. REVIEW OF SYSTEMS The patient has had numbness. No fever, weakness or nausea. PAST HISTORY Negative. Patient is right handed. Tetanus immunization status is up-to-date. Medications: The patient's medications have been reviewed. See nurses notes. Allergies: No known drug allergies. ADDITIONAL NOTES The nursing notes have been reviewed with agreement regarding the chief complaint, HPI, PMH and patient medications and allergies. PHYSICAL EXAM Appearance: Alert. Oriented X3. No acute distress. Vital Signs: Normal - Skin: Single medium-sized wound on the right hand. Healing wound. Note (Wound to dorsum of hand hasgranulomatous base, with surrounding scar tissue. No evidence of infection. Hand exhibits full ROM,though patient reports tightness, when she clenches her fist). No erythema, cellulitis, tenderness, warmth or drainage. Neuro: Oriented X 3. PROGRESSAND PROCEDURES E.D. Course: Wound dressed with moist dressing (Bacitracin). ED Attending on duty and available for supervision: Alfred Ty. Disposition: Discharged home in stable condition. CLINICAL IMPRESSION Wound check . INSTRUCTIONS As we discussed, change your dressing daily, using a generous amount of Bacitracin. Make an appointment to see the hand specialists so they can do a thorough evaluation of your hand. If you notice any signs of infection, including increased redness, pain or drainage, you should return to the [facility]. Follow-up: [facility], Hand Division, [phone], [facility] - 5th Floor, [address] [place] [address]. Follow up. Call for the next available appointment. Understanding of the discharge instructions verbalized by patient. (Electronically signed by Volodymyr Veras N.P. 09/11/2006 20:06) Care Center - Nursing Summary Registration Date/Time: 09/11/2006 15:13 TRIAGE Initial Assessment BP: 122 / 80 sitting R arm manual (reg adult cuff). HR: 72 regular. RR: 16. Temp: 97.5 oral. --1540Kalilli Ayala, Triage time 15:40. --1540 Isadora Ayala, . Medications Celexa. --1540 Isadora Ayala, . Allergies No known drug allergies. --1540 Isadora Ayala, . History Chief Complaint: RECHECK. Arrived by private vehicle. Historian: patient. --1540 Isadora Ayala, Previous treatment: Previously seen at this facility. --1540 Isadora Ayala, Previous treatment: ( Pt continues with numbness and tingling in right hand around the wound. Is here because she was advised to return for recheck.). --1547 Mariely Deulna R.N. ( Pt keeps the wound covered at work and opened at home at night.). --154 Mariely Deluna R.N. PHYSICAL ASSESSMENT Alert. Oriented X 3. Skin is warm. --154 Mariely Deluna R.N. NURSINGPROGRESS NOTES Progress Patient ready for evaluation - --1550 Mariely Deluna R.N. ( Report received.). --1611 Suly Leavitt R.N. Pre-procedure time-out completed per protocol: verified identity of patient (name and birthdate) and procedure; verification done by care team (nurse). Sterile dressing consisting of adaptic, Jessica and tape was applied, following the application of antibiotic ointment. --165 Suly Leavitt R.N. DISPOSITION / DISCHARGE Patient reports pain level on departure as 2/10. Condition at departure: stable. No learning barriers present. Discharge instructions reviewed with the patient. Reviewed wound care instructions. Reviewed referrals (Hand specialist). Patient verbalized understanding. Written instructions provided inEnglish. The patient was discharged home. The patient left the Emergency Department ambulatory and v ia private vehicle. Patient driving. --170 Suly Leavitt R.N. Locked/Released at 09/11/2006 17:08 by Suly Leavitt R.N. documented in this encounter Plan of Treatment Not on file documented as of this encounter Visit Diagnoses Not on filedocumented in this encounter Care Teams Type Copy Examiner Relationship Specialty Start Date End Date Aruna Martin MD [address] [place] [address] PCP - General 04/30/09 04/15/17 documented as of this encounter
--- OUTSIDE RECORDS SUMMARY | 2024-09-20 16:43 | XMS_ITS | Encounter Summary ---
Author Organization [facility] Address [address] [place] [address] Care Team Providers Care Hosiery Mender Name Role Phone Veronica Jarvis MD, Aruna Primary Care Provider [phone] Encounter Details Date Type Department Care Team (Late st Contact Info) Description 07/30/2016 Results Only [facility]- [facility] [phone] Laura Westbrook MD [address] [place] [address] Social History Tobacco Use Types Packs/Day Years [...] Diagnosis Comments PAP TEST- RESULT ONLY Routine 07/30/2016 0:00 EDT documented in this encounter Results * PAP TEST- RESULT ONLY (07/30/2016 0:00 EDT) Pathology Report: CYTOPATHOLOGY REPORT Reports generated via electronic interface contain original data; however they are lacking the format of the original report. Caution should be taken when reading/interpreti ng unformatted reports. Name: ? KOLE ANGLIN ? Accession #: ? [id number] : ? 1955 (Age: 61) ??F ?Collect Date: ? 07/30/2016 Location: ? [facility] ? Receive Date: ? 08/01/2016 Provider: ?LAURA WESTBROOK MD Copy to: ? Specimen/Source: ?Pap Test, Cervix, ThinPrep Imaging System with manual evaluation Last Menstrual Period: ? Menstrual/Pregnanc y Status: ? Menopausal Hormonal/Contracep tive Status: ? None Other: ? Previous NIL Pap(s): WNL ? SPECIMEN ADEQUACY ? Satisfactory for Evaluation - assessment of transformation zone component not applicable ( e.g. atrophy, vaginal sample, hysterectomy) GENERAL CATEGORIZATION ? Negative for Intraepithelial Lesion or Malignancy ? Document reviewed and electronically signed by: ? LETICIA Gonzales(ASCP) ? Report Date: ??08/07/2016 10:00 End of Report [facility] 07/30/2016 08/01/2016 Laura Westbrook MD PATHOLOGY ORD ERABLES [facility] [address] [place] [address] documented in this encounter Visit Diagnoses Not on filedocumented in this encounter Care Teams Hosiery Mender Relationship Specialty Start Date End Date Aruna Martin MD [address] [place] [address] PCP - General 04/30/09 04/15/17 documented as of this encounter
--- OUTSIDE RECORDS SUMMARY | 2024-09-20 16:43 | XMS_ITS | Encounter Summary ---
Author Organization [facility] Address [address] [place] [address] Care Team Providers Care Drafter Directional Survey Name Role Phone Laura Najera MD Primary Care Provide r Encounter Details Date Type Department Care Team (Late st Contact Info) Description 12/03/2021 Prep for Procedure [facility] Vascular Surgery - [address] [address] Alice Reyes NP [address] [place] [phone] Social History Tobacco Use Types Packs/Day Years [...] as of this encounter H&P Notes * Alice Reyes NP - 12/03/2021 2488 EST Consult note from Dr. Jimenez (06/21/21) reviewed, as well as pre-op H&P completed by PCP, Ramiro Peterson DNP (12/02/21). Pre-op orders placed in preparation for right leg RF ablation of the GSV 12[place]06[place]21 [place] [facility] documented in this encounter Plan of Treatment Not on file documented as of this encounter Visit Diagnoses Not on filedocumented in this encounter Care Teams Drafter Directional Survey Relationship Specialty Start Date End Date Laura Najera MD [address] [place] [address] PCP - General 04/16/17 documented as of this encounter
--- OUTSIDE RECORDS SUMMARY | 2024-09-20 16:43 | XMS_ITS | Encounter Summary ---
Author Organization [facility] Address [address] [place] [address] Care Team Providers Care Barrel Tester Name Role Phone Veronica Jarvis MD, Aruna Primary Care Provider [phone] Encounter Details Date Type Department Care Team (Late st Contact Info) Description 04/18/2008 Results Only [facility] - Maple conversion [address] [place] [address] Aruna Fuller MD [address] [place] [phone] Social History Tobacco Use Types Packs/Day Years Used Date Smoking Tobacco: Never Assessed Sex and Gender Information Value Date Recorded Sex Assigned at Not on file Gender Identity Not on file Sexual Orientation Not on file documented as of this encounter Plan of Treatment Not on file documented as of this encounter Procedures Procedure Name Priority Date/Time Associated Diagnosis Comments CYTOPATHOLOGY Routine 04/18/2008 0:00 EDT documented in this encounter Results * CYTOPATHOLOGY (04/18/2008 0:00 EDT) Pathology Report: CYTOPATHOLOGY REPORT Reports generated via electronic interface contain original data; however they are lacking the format of the original report. Caution should be taken when reading/interpreti ng unformatted reports. Name: ? KOLE ANGLIN ? Accession #: ? [id number] : ? 1955 (Age: 53) ??F ?Collect Date: ? 04/18/2008 Location: ? [facility] ? Receive Date: ? 04/19/2008 Provider: ?ARUNA FULLER MD Copy to: ? Specimen/Source: ?ThinPrep Pap Test, Cervix, processed on [employer] ThinPrep Imaging System, with manual evaluation Last Menstrual Period: ? 03/22/08 Other: ? HPVA - HPV testing requested if ASC-US on the current ThinPrep Pap test. ? SPECIMEN ADEQUACY ? Satisfactory for Evaluation - transformation zone component absent GENERAL CATEGORIZATION ? Negative for Intraepithelial Lesion or Malignancy INTERPRETATION ? Shift in evgeny present suggestive of bacterial vaginosis. ? Document reviewed and electronically signed by: ? LETICIA Walsh(ASCP) ? Report Date: ??04/21/2008 14:00 End of Report [facility] 04/18/2008 04/19/2008 Aruna Jarvis MD PATHOLOGY ORDERABLES Performing Organization Address City/State/[facility] Co de Phone Number [facility] [address] [place] [address] documented in this encounter Visit Diagnoses Not on filedocumented in this encounter Care Teams Barrel Tester Relationship Specialty Start Date End Date Aruna Fuller MD [address] [place] [address] PCP - General 04/30/09 04/15/17 documented as of this encounter
--- OUTSIDE RECORDS SUMMARY | 2024-09-20 16:43 | XMS_ITS | Encounter Summary ---
Author Organization [facility] Address [address] [place] [address] Care Team Providers Care Second Butler Name Role Phone Laura Najera MD Primary Care Provide r Encounter Details Date Type Department Care Team (Late st Contact Info) Description 12/02/2021 Lab Requisition [facility] Pathology & Laboratory Medicine - [address] [address] Outr Resulting Lab, Provider Social History Tobacco Use Types Packs/Day Years [...] RNA BY PCR Routine 12/02/2021 10:10 EST documented in this encounter Results * HEPATITIS C AB W REFLEX TO HCV RNA BY PCR (12/02/2021 10:10 EST) Hep C Antibody Negative Negative 12/03/2021 14:54 EST [facility] Blood VENOUS BLOOD / Unknown 12/02/2021 10:10 EST 12/02/2021 20:51 EST Provider Outr Resulting Lab CHEMISTRY & BLOOD GAS ORDERABLES Performing Organization Address City/State/[facility] Co de Phone Number [facility] [address] [place] [address] documented in this encounter Visit Diagnoses Not on filedocumented in this encounter Care Teams Second Butler Relationship Specialty Start Date End Date Laura Najera MD [address] [place] [address] PCP - General 04/16/17 documented as of this encounter
--- OUTSIDE RECORDS SUMMARY | 2024-09-20 16:43 | XMS_ITS | Encounter Summary ---
Author Organization [facility] Address [address] [place] [address] Care Team Providers Care Community Center Worker Name Role Phone Unavailable Primary Care Provider Unavailabl e Encounter Details Date Type Department Care Team (Latest Contact Info) Description 09/17/2006 13:21 EDT Hospital Encounter [facility] - [address] [address] Neo Rodríguez MD [address] [place] [phone] Discharge Disposition: Auto Discharge Social History Tobacco [...]
--- OUTSIDE RECORDS SUMMARY | 2024-09-20 16:43 | XMS_ITS | Encounter Summary ---
Author Organization [facility] Address [address] [place] [address] Care Team Providers Care Tripper Name Role Phone Laura Najera MD Primary Care Provide r Reason for Visit * Vascular Lab (Routine) - Closed Specialty Diagnoses / Procedures Referred By Conteber t Referred To Contact Diagnoses Varicose veins of bilateral lower extremities with pain Procedures US VARICOSE VEIN DUPLEX Thuan Jimenez MD [address] [place] [id number] Referral ID Status Reason Start Date Expiration Date Visits Re quested Visits Authorized [id number] Closed 04/05/2021 1 1 Encounter Details Date Type Department Care Team (Latest Contact Info) Description 06/21/2021 12:30 EDT Ancillary Procedure [facility] Vascular Surgery [address] [address] Varicose veins of bilateral lower extremities with [...] Procedure Name Priority Date/Time Associated Diagnosis Comments US VARICOSE VEIN DUPLEX BILATERAL Routine 06/21/2021 13:12 EDT Varicose veins of bilateral lower extremities with pain documented in this encounter Results * US VARICOSE VEIN DUPLEX BILATERAL (06/21/2021 13:12 EDT) Right GSMT rosanne 0.65 cm MERGE CARDIO Right GSMT reflux 3.5 s MERGE CARDIO Right GSDT rosanne 0.65 cm MERGE CARDIO Right GSDT reflux 3.5 s MERGE CARDIO Right GSK rosanne 0.62 cm MERGE CARDIO Right GSK reflux 4.7 s MERGE CARDIO Right SSPC rosanne 0.23 cm MERGE CARDIO Right SSPC reflux 0.0 s MERGE CARDIO Left GSJ rosanne 1.10 cm MERGE CARDIO Left GSJ reflux 4.5 s MERGE CARDIO Left GSMT rosanne 0.76 cm MERGE CARDIO Left GSMT reflux 4.0 s MERGE CARDIO Left SSPC rosanne 0.31 cm MERGE CARDIO Left SSPC reflux 0.0 s MERGE CARDIO Right GSPT rosanne 0.00 cm MERGE CARDIO Left GSPT rosanne 0.77 cm MERGE CARDIO Left GSPT reflux 4.5 s MERGE CARDIO Left GSDT rosanne 0.00 cm MERGE CARDIO Anatomical Region Laterality Modality Vascular Ultrasound Narrative 06/21/2021 13:28 EDT ?No evidence of deep or superficial venous thrombosis in the left lower extremity. ??Reflux in remaining great saphenous vein. ??No reflux in deep veins or short saphenous. ?No evidence of deep or superficial venous thrombosis in the right lower extremity. ??Reflux in remaining great saphenous vein. ??No reflux in deep veins or short saphenous. Right Saphenous Venous GSV removed mid thigh to SFJ. Right Lower Venous Other The right external iliac, common femoral, proximal greater saphenous, proximal profunda femoris, femoral, and popliteal veins demonstrate normal Doppler flow/waveforms and compression. Left Saphenous Venous GSV not present below the mid thigh, large tortuous varicose vein from knee to mid thigh. Left Lower Venous Other The left external iliac, common femoral, proximal greater saphenous, proximal profunda femoris, femoral, and popliteal veins demonstrate normal Doppler flow/waveforms and compression. Venous HPI and Indications Lower extremity pain and Lower extremity swelling. Painful varicose veins. Thuan Jimenez MD IMG US VASCULAR O RDERABLES documented in this encounter Visit Diagnoses Diagnosis Varicose veins of bilateral lower extremities with pain documented in this encounter Care Teams Tripper Relationship Specialty Start Date End Date Laura Najera MD [address] [place] [address] PCP - General 04/16/17 documented as of this encounter
--- OUTSIDE RECORDS SUMMARY | 2024-09-20 16:43 | XMS_ITS | Encounter Summary ---
Author Organization [facility] Address [address] [place] [address] Care Team Providers Care Hard Tile Setter Apprentice Name Role Phone Unavailable Primary Care Provider Unavailabl e Encounter Details Date Type Department Care Team (Latest Contact Info) Description 10/23/1999 16:32 EST - 10/29/1999 11:59 EST Hospital Encounter [facility] - Maple conversion [address] [place] [address] JoseC Bryant MD Discharge Disposition: Auto Discharge Social History Tobacco [...] Procedure Name Priority Date/Time Associated Diagnosis Comments SHOULDER 2 OR MORE VIEWS Routine 10/23/1999 15:09 EST SHOULDER 2 OR MORE VIEWS Routine 10/23/1999 15:09 EST documented in this encounter Results * SHOULDER 2 OR MORE VIEWS (10/23/1999 15:09 EST) Anatomical Region Laterality Modality Other 10/23/1999 15:0 9 EST Narrative 10/09/2009 10:30 EST R/O OA OF GH AND AC JOINT BILATSHOULDER PAIN INTERNAL, EXTERNAL ROTATION, SCAPULAR Y AND AXILLARY VIEWS, BILATERAL SHOULDER 10/23/99, 1500 hours COMPARISON: none FINDINGS RIGHT SHOULDER: No abnormalities are noted in the bones, joints or the soft tissues. FINDINGS LEFT SHOULDER: No abnormalities are noted in the bones, joints or the soft tissues. The attending radiologist has reviewed the images, and concurs with the findings described above. D 10/29/99 T 10/30/99 /nguyen Procedure Note Jevon Linares MD / Adryan Medrano MD - 10/09/2009 R/O OA OF GH AND AC JOINT BILATSHOULDER PAIN INTERNAL, EXTERNAL ROTATION, SCAPULAR Y AND AXILLARY VIEWS, BILATERAL SHOULDER 10/23/99, 1500 hours COMPARISON: none FINDINGS RIGHT SHOULDER: No abnormalities are noted in the bones, joints or the soft tissues. FINDINGS LEFT SHOULDER: No abnormalities are noted in the bones, joints or the soft tissues. The attending radiologist has reviewed the images, and concurs with the findings described above. D 10/29/99 T 10/30/99 /nguyen Jose C [facility]ATHAN [facility] I MAGING ORDERABLES * SHOULDER 2 OR MORE VIEWS (10/23/1999 15:09 EST) Anatomical Region Laterality Modality Other 10/23/1999 15:0 9 EST Narrative 10/09/2009 10:30 EST R/O OA OF GH AND AC JOINT BILATSHOULDER PAIN Procedure Note Jevon Linares MD / Adryan Medrano MD - 10/09/2009 R/O OA OF GH AND AC JOINT BILATSHOULDER PAIN Jose C [facility] I MAGING ORDERABLES documented in this encounter Visit Diagnoses Not on filedocumented in this encounter
--- OUTSIDE RECORDS SUMMARY | 2024-09-20 16:43 | XMS_ITS | Encounter Summary ---
Author Organization [facility] Address [address] [place] [address] Care Team Providers Care Coat Cutter Name Role Phone Veronica Jarvis MD, Aruna Primary Care Provider [phone] Encounter Details Date Type Department Care Team (Late st Contact Info) Description 12/16/2005 Results Only [facility] - Maple conversion [address] [place] [address] Aruna Fuller MD [address] [place] [phone] Social History Tobacco Use Types Packs/Day Years Used Date Smoking Tobacco: Never Assessed Sex and Gender Information Value Date Recorded Sex Assigned at Not on file Gender Identity Not on file Sexual Orientation Not on file documented as of this encounter Plan of Treatment Not on file documented as of this encounter Procedures Procedure Name Priority Date/Time Associated Diagnosis Comments CYTOPATHOLOGY Routine 12/16/2005 0:00 EST documented in this encounter Results * CYTOPATHOLOGY (12/16/2005 0:00 EST) Pathology Report: CYTOPATHOLOGY REPORT Reports generated via electronic interface contain original data; however they are lacking the format of the original report. Caution should be taken when reading/interpreti ng unformatted reports. Name: ? KOLE ANGLIN ? Accession #: ? [id number] : ? 1955 (Age: 50) ??F ?Collect Date: ? 12/16/2005 Location: ? [facility] ? Receive Date: ? 12/18/2005 Provider: ?ARUNA FULLER MD Copy to: ? Specimen/Source: ?ThinPrep Pap Test, Cervix, processed on [employer] ThinPrep Imaging System, with manual evaluation Last Menstrual Period: ? 11/24/05 ? SPECIMEN ADEQUACY ? Satisfactory for Evaluation - transformation zone component present GENERAL CATEGORIZATION ? Negative for Intraepithelial Lesion or Malignancy INTERPRETATION ? Shift in evgeny present suggestive of bacterial vaginosis. ? Document reviewed and electronically signed by: ? LETICIA Harrison(ASCP) ? Report Date: ??12/19/2005 15:19 End of Report PATITO QUESADA 12/16/2005 12/18/2005 Aruna Jarvis MD PATHOLOGY ORDERABLES Performing Organization Address City/State/[facility] Co de Phone Number [facility] [address] [place] [address] documented in this encounter Visit Diagnoses Not on filedocumented in this encounter Care Teams Coat Cutter Relationship Specialty Start Date End Date Aruna Fuller MD [address] [place] [address] PCP - General 04/30/09 04/15/17 documented as of this encounter
--- OUTSIDE RECORDS SUMMARY | 2024-09-20 16:43 | XMS_ITS | Encounter Summary ---
Author Organization [facility] Address [address] [place] [address] Care Team Providers Care Economic Development Specialist Name Role Phone Laura Najera MD Primary Care Provide r Encounter Details Date Type Department Care Team (Late st Contact Info) Description 04/16/2017 Results Only Imaging [facility]- [facility] [phone] Laura Najera MD [address], [place] [id number] Social History Tobacco Use Types Packs/Day Years [...] Procedure Name Priority Date/Time Associated Diagnosis Comments VL VENOUS INSUFFICIENCY (VARICOSE VEINS) JOSH 04/16/2017 11:34 EDT documented in this encounter Results * VL VENOUS INSUFFICIENCY (VARICOSE VEINS) JOSH (04/16/2017 11:34 EDT) Anatomical Region Laterality Modality Other 04/16/2017 11:3 4 EDT Narrative 04/20/2017 13:28 EDT Vascular Diagnostic Laboratory [facility], [facility], Level [address] [place] [address] Technologist: Tracy Hunter Fellow: IMPRESSIONS 1. Reflux within the right distal femoral vein and greater saphenous ?? vein at the knee level. No reflux within the right popliteal, short ?? saphenous, and femoral vein at the prox and mid level. 2. Reflux within the left great saphenous vein. No reflux within the ?? left femoral, popliteal, and short saphenous vein. 3. No evidence of deep or superficial vein thrombosis in the right lower ?? extremity or the left lower extremity. PROCEDURE: Bilateral lower extremity venous ultrasound; common femoral, femoral, popliteal, and superficial veins assessed for thrombosis and venous insufficiency. INDICATION: Varicose veins with pain. HISTORY: RISK FACTORS: Former tobacco use. Previous bilateral great saphenous vein stripping - per patient. VENOUS FLOW AND IMAGING: + + +------+ + Vein ? Sonographic findings ?? Diam ?? Comments ? + + +------+ + Right FV prox ?? With no reflux. ? + + +------+ + Right FV mid ? With no reflux. ? + + +------+ + Right FV dist ?? With reflux (0.5 - ? 2sec). ? + + +------+ + Right POP ? With no reflux. ? + + +------+ + Right s-f ? With no reflux. ? 0.54cm ? junction ? + + +------+ + Right GSV mid ? No visible great ? thigh ? saphenous vein at the ? mid level. Previous ? vein stripping ? + + +------+ + Right GSV knee ?? With reflux (> 2.0 ? 0.60cm Collateral flow through ? sec). ? multiple small varicose ? veins of the anterior ? thigh. ? + + +------+ + Right SSV ? With no reflux. ? 0.51cm ? + + +------+ + Left FV prox ? With no reflux. ? + + +------+ + Left FV mid ? With reflux (0.5 - ? 2sec). ? + + +------+ + Left FV dist ? With no reflux. ? + + +------+ + Left POP ? With no reflux. ? + + +------+ + Left s-f ? With reflux (> 2.0 ? 1.0cm ? junction ? sec). ? + + +------+ + Left GSV mid ? With reflux (> 2.0 ? 0.75cm Communicates with ? thigh ? sec). ? varicose veins of the ? medial thigh. ? + + +------+ + Left GSV distal With no reflux. ? 0.41cm No visible great ? thigh ? saphenous vein at the ? knee level. ? + + +------+ + Left SSV ? With no reflux. ? 0.31cm ? + + +------+ + * Electronically signed by: Dima Woodall 04/20/2017 13:28 Procedure Note Dima Woodall MD - 04/20/2017 Vascular Diagnostic Laboratory [facility] [address] [place] [address] Technologist: Tracy Hunter Fellow: IMPRESSIONS 1. Reflux within the right distal femoral vein and greater saphenous vein at the knee level. No reflux within the right popliteal, short saphenous, and femoral vein at the prox and mid level. 2. Reflux within the left great saphenous vein. No reflux within the left femoral, popliteal, and short saphenous vein. 3. No evidence of deep or superficial vein thrombosis in the right lower extremity or the left lower extremity. PROCEDURE: Bilateral lower extremity venous ultrasound; common femoral, femoral, popliteal, and superficial veins assessed for thrombosis and venous insufficiency. INDICATION: Varicose veins with pain. HISTORY: RISK FACTORS: Former tobacco use. Previous bilateral great saphenous vein stripping - per patient. VENOUS FLOW AND IMAGING: + + +------+ + Vein Sonographic findings Diam Comments + + +------+ + Right FV prox With no reflux. + + +------+ + Right FV mid With no reflux. + + +------+ + Right FV dist With reflux (0.5 - 2sec). + + +------+ + Right POP With no reflux. + + +------+ + Right s-f With no reflux. 0.54cm junction + + +------+ + Right GSV mid No visible great thigh saphenous vein at the mid level. Previous vein stripping + + +------+ + Right GSV knee With reflux (> 2.0 0.60cm Collateral flow through sec). multiple small varicose veins of the anterior thigh. + + +------+ + Right SSV With no reflux. 0.51cm + + +------+ + Left FV prox With no reflux. + + +------+ + Left FV mid With reflux (0.5 - 2sec). + + +------+ + Left FV dist With no reflux. + + +------+ + Left POP With no reflux. + + +------+ + Left s-f With reflux (> 2.0 1.0cm junction sec). + + +------+ + Left GSV mid With reflux (> 2.0 0.75cm Communicates with thigh sec). varicose veins of the medial thigh. + + +------+ + Left GSV distal With no reflux. 0.41cm No visible great thigh saphenous vein at the knee level. + + +------+ + Left SSV With no reflux. 0.31cm + + +------+ + * Electronically signed by: Dima Woodall 04/20/2017 13:28 Laura Najera MD [facility] US VASCUL AR ORDERABLES documented in this encounter Visit Diagnoses Not on filedocumented in this encounter Care Teams Economic Development Specialist Relationship Specialty Start Date End Date Laura Najera MD [address] [place] [address] PCP - General 04/16/17 documented as of this encounter
--- OUTSIDE RECORDS SUMMARY | 2024-09-20 16:43 | XMS_ITS | Encounter Summary ---
Author Organization [facility] Address [address] [place] [address] Care Team Providers Care Founder And Ceo Name Role Phone Laura Najera MD Primary Care Provide r Reason for Visit * Reason Comments Post-OP Follow Up 1st post op left leg rfa/stabs done Encounter Details Date Type Department Care Team (Late st Contact Info) Description 10/08/2021 9:00 EST Post-op Visit [facility] [place] [address] Nurse Practitioner, [facility] M[facility] Vasc Surg Venous insufficiency, peripheral (Primary [...] Sign Reading Time Taken Comments Blood Pressure 116/70 10/08/2021 0902 EST left Pulse 66 10/08/2021 0902 EST Temperature - - Respiratory Rate - - Oxygen Saturation 96% 10/08/2021 0902 EST Inhaled Oxygen Concentration - - Weight [...] Progress Notes * Alice Reyes NP - 10/08/2021 0900 EST Post-op check: I am seeing Mariely Uribe for a postoperative follow up s/p high ligation of the left GSV and microphlebectomy x 17 on 09/27/[address] Jimenez for chronic venous insufficiency with symptomatic varicosities. Mariely Uribe reports she has felt well postoperatively, denying any chest pain, shortness of breath,fever/chills, unusual swelling in her legs or any undue pain. The patient reports that she did ambulate for a few minutes every 30 minutes as directed on the day of surgery. She has returned to her usual level of activity of walking and has returned to work. Overall, she states the day of surgery went well. On exam, she is alert, cooperative and in no acute distress. Breathing is nonlabored. The patient is wearing compression stockings. her left leg incisions are intact and healing well. There is no drainage or erythema around the incisions, no tenderness to palpation and no edema noted. Expected phlebitic reaction along the left medial leg, with mild brownish discoloration, and healing ecchymosis to the left thigh and lower leg. Assessment and Plan: Mariely Uribe is a 66 y.o. woman status post left leg radiofrequency ablation and stab ligation who is recovering well post- operatively. There is no evidence of wound infection, DVT or PE. We discussed skin and wound care, pain control, the role of compression therapy, leg elevati on and follow up. She will follow up with Dr. Jimenez in 2 months to address her right leg. She will have her pre-op H&P completed by her PCP on 11/28/21 and is scheduled for right leg RF ablation at [facility] on 12/06/20. The patient left the clinic feeling well. Alice Reyes NP 10/08/2021 9:32 documented in this encounter Plan of Treatment Not on file documented as of this encounter Visit Diagnoses Diagnosis Venous insufficiency, peripheral- Primary Unspecified venous (peripheral) insufficiency documented in this encounter Care Teams Founder And Ceo Relationship Specialty Start Date End Date Laura Najera MD [address] [place] [address] PCP - General 04/16/17 documented as of this encounter
--- OUTSIDE RECORDS SUMMARY | 2024-09-20 16:43 | XMS_ITS | Encounter Summary ---
Author Organization [facility] Address [address] [place] [address] Care Team Providers Care Sensitized Paper Tester Name Role Phone Laura Najera MD Primary Care Provide r Reason for Visit * Auth/Cert Specialty Diagnoses / Procedures [facility] Referred To Contact Diagnoses Varicose veins of right lower extremity with inflammation Varicose veins of right lower extremity with inflammation [I83.11] Procedures OR ENDOVENOUS RF, 1ST VEIN Right leg radiofrequency ablation of greater saphenous vein Referral ID Status Reason Start Date Expiration Date Visits Re quested Visits Authorized [id number] 1 Encounter Details Date Type Department Care Team (Late st Contact Info) Description 12/06/2021 7:30 EST - 12/06/2021 8:55 EST Surgery [facility] - [facility] Operating Room [address] [place] [address] Thuan Jimenez MD Right leg radiofrequency ablation of greater saphenous vein [90176 (CPT??)] Surgery Details Date/Time Status Location OR Service Patient Class Case Cl ass Case Type Trauma Case? 12/06/21 0730 Posted [facility] OR [address] Outpatient Surgery H - Elective Panel 1 Procedure LRB Anes Op Region Wound Class Comments Right leg radiofrequency ablation of greater saphenous vein Right Patient Choice Leg Class I/ Clean Surgeon Surgeon Role Service Panel Thuan Jimenez MD Primary Vascular 1 documented in this encounter Social History Tobacco [...] Sign Reading Time Taken Comments Blood Pressure 130/71 12/06/2021 0855 EST Pulse 66 12/06/2021 0633 EST Temperature 36.2 ??C (97.2 ??F) 12/06/2021 0837 EST Respiratory Rate 12 12/06/2021 0855 EST Oxygen Saturation 91% 12/06/2021 0855 EST Inhaled Oxygen Concentration - - Weight [...] call our clinic. Vascular Clinic 5th floor [facility], [facility] . Our clinic offices are open for [...] vein (R) Operative Note Date: 12/06/2021 Location: [facility] OR Name: Mariely Uribe : 1955, Diagnosis Pre-Op Diagnosis Codes: * Varicose veins of right lower extremity with inflammation [I83.11] Post-op Diagnosis * Varicose veins of right lower extremity with inflammation [I83.11] Procedures Right leg radiofrequency ablation of greater saphenous vein [address] - [place] ENDOVENOUS RF, 1ST VEIN Surgeons * Thuan Jimenez MD - Primary Procedure Summary Anesthesia: Patient Choice ASA: III Estimated Blood Loss: No Blood Loss Documented Total IV Fluids: n/a mL LDAs: Peripheral IV 12/06/21 0700 Left;Posterior Hand (Active) Wound Anterior;Distal;Right;Superior Leg (Active) Staff: Customer Associate: Amber Delacruz RN Scrub Person: Eliezer Denis Filter Changing Technician: Jennifer Larsen RN Indications: Mariely Uribe is [...] EST 1,000 mL 30 mL/hr IV lidocaine 1 % injection PRN, Starting on Thu12/06/21 at 0809, Until Thu12/06/21 at 0829, Routine, Intraprocedure Given 12/06/2021 8:09 EST 21 mL documented in this encounter Historical Medications * [...] (only) 0901 (Given - Provid er: Patty Barba RN) ceFAZolin in dextrose 5 % (ANCEF) [...] 0841 (New Bag - Prov ider: Patty Barba RN)0940 (IV Stopped - Provider: Patty Barba RN) lactated ringers (LR) infusion at 30 [...] Intraprocedure 0809 (Given - Provid er: Thuan Darrick Alef, MD - Comment: injected in right leg 21ml lidocaine in60 ml injectable saline) documented in this encounter Orders Medications Ordered That Noah ht Not Have Been Administered Count Last Ordered Date First Ordered Date chlorhexidine gluconate 2 % cloth 1 Each 1 12/06/2021 fentaNYL citrate (PF) injection 25 mcg 1 lidocaine (PF) 10 mg/mL (1 % ) injection 2 mg 1 12/06/2021 ondansetron (PF) (ZOFRAN) injection 4 mg 1 12/06/2021 sodium chloride 0.9 % (NS) infusion 1 12/06 Discharge Count Last Ordered Date First Orde red Date DISCHARGE PATIENT 1 12/06/2021 documented in this encounter Care Teams Sensitized Paper Tester Relationship Specialty Start Date End Date Laura Najera MD [address] [place] [address] PCP - General 04/16/17 documented as of this encounter
--- OUTSIDE RECORDS SUMMARY | 2024-09-20 16:43 | XMS_ITS | Encounter Summary ---
Author Organization [facility] Address [address] [place] [address] Care Team Providers Care Scoop Operator Name Role Phone Unavailable Primary Care Provider Unavailabl e Encounter Details Date Type Department Care Team (Late st Contact Info) Description 09/11/2006 15:13 EDT Hospital Encounter [facility] [address] [place] [address] Katie Veras NP [address] [place] [id number] Social History Tobacco Use Types Packs/Day Years [...]
--- OUTSIDE RECORDS SUMMARY | 2024-09-20 16:43 | XMS_ITS | Encounter Summary ---
Author Organization [facility] Address [address] [place] [address] Care Team Providers Care Office Spec Name Role Phone Laura Najera MD Primary Care Provide r Reason for Visit * Reason Comments Varicose Veins bilateral lower leg varicose veins, aching/heavy discomfort * Referral (Routine) - Receiving Office to Obtain Authorization Specialty Diagnoses / Procedures Referred By Sukhi t Referred To Contact Vascular Surgery Diagnoses Asymptomatic varicose veins of bilateral lower extremities Olga Vasquez FNP [address] [place] [address] [facility] Vasc Surgery [address] [place] [address] Referral ID Status Reason Start Date Expiration Date Visits Requested Visits Authorized [id number] Receiving Office to Obtain Authorization 1 1 Encounter Details Date Type Department Care Team (Latest Contact Info) Description 02/22/2021 14:30 EDT Initial consult [facility] Center Vascular Surgery [address] [address] Thuan Jimenez MD Venous insufficiency of lower [...] 13:48 EDT documented as of this encounter Last Filed Vital Signs Vital Sign Reading Time Taken Comments Blood Pressure 104/60 02/22/2021 1349 EDT Pulse - - Temperature - - Respiratory Rate - - Oxygen Saturation - - Inhaled Oxygen Concentration - - Weight 60.3 kg (133 lb) 02/22/2021 1349 EDT Height 149.9 cm (4' 11) 02/22/2021 1349 EDT Body Mass Index 26.86 02/22/2021 1349 EDT documented in this encounter Functional Status [...] Progress Notes * Thuan Jimenez MD - 02/22/2021 1430 EDT [facility] Vascular Surgery H & P Consultation Note - Initial Visit Note Date: 02/22/2021 Patient: Mariely Uribe Subjective: Mariely Uribe is a 66 y.o. female who presents today for Varicose Veins (bilateral lower leg varicoseveins, aching/heavy discomfort) Consult requested by Laura Najera Patient History of Present Illness: The patient complains of varicose veins in the legs. She's had them for years, slowly worsening. Associated aches, heaviness, edema, cramping, and phlebitis. Denies ulcer, DVT, or bleeding. Worn compression for years with mild relief of symptoms The patient's history, allergies, and medications were documented, reviewed, and updated. Medications: Current Outpatient Medications Medication ??? cholecalciferol, Vitamin D3, 25 mcg (1,000 unit) tablet ??? sertraline (ZOLOFT) 25 mg tablet ??? simvastatin (ZOCOR) 20 mg tablet No current facility-administered medications for this visit. History was documented as follows: PMH PSH Past Medical History: Diagnosis Date ??? Hyperlipidemia No past surgical history on file. Social History Family History Social History Tobacco Use ??? Smoking status: Former Smoker ??? Smokeless tobacco: Never Used Substance Use Topics ??? Alcohol use: Not on file Family History Problem Relation Age of Onset ??? Heart Disease Father ??? Stroke Father Allergies No Known Allergies Review of Systems A comprehensive review of systems was negative. Objective: Physical Examination: Vitals: BP 104/60 (BP Cuff Location: Left arm, BP Patient Position: Sitting) Ht (!) 149.9 cm (59) Wt 60.3 kg (133 lb) BMI 26.86 kg/m?? General Healthy-appearing 66 y.o. white female in no apparent distress who looks her stated age. Eyes: scelra non-icteric Musculoskeletal: No joint effusions or tenderness. Extremities: No bony abnormality. No joint effusions. Varicose veins palpable BLE, Left worse than right Skin: Warm and pink. No lesions or stasis dermatitis. Hematologic: There is no bruising. Neurologic: Gait and stance are normal; Strength Upper and lower extremities, 5/5. There is no tremor or slurred speech. Vascular: warm, pink, capillary refill brisk Non-invasive Vascular Lab Tests: 04/16/27 IMPRESSIONS 1. Reflux within the right distal [...] lower extremity or the left lower extremity. Assessment: Symptomatic bilateral varicose veins and venous [...] by insurance. Plan: - cont compression - L GSV ablation with microphleb, then R GSV ablation with microphleb for CEAP 3 disease Submitted by: Thuan Jimenez MD CC: Laura Najera documented in this encounter Plan of Treatment Not on file documented as of this encounter Visit Diagnoses Diagnosis Venous insufficiency of lower extremity, unspecified laterality- Primary documented in this encounter Historical Medications * This list may reflect changes made after this encounter. Medication Sig Dispensed Refills Start Date End Date cholecalciferol, Vitamin D3, 25 mcg (1,000 unit) tablet Take 2,000 Units by mouth daily. added in this encounter Care Teams Office Spec Relationship Specialty Start Date End Date Laura Najera MD [address] [place] [address] PCP - General 04/16/17 documented as of this encounter
--- OUTSIDE RECORDS SUMMARY | 2024-09-20 16:43 | XMS_ITS | Encounter Summary ---
Author Organization [facility] Address [address] [place] [address] Care Team Providers Care Balance Truer Name Role Phone Veronica Jarvis MD, Mara Primary Care Provider [phone] Encounter Details Date Type Department Care Team (Late st Contact Info) Description 09/03/2006 Office Visit [facility] [address] [place] [address] Kingston Lemon, FIGURE SKATER [address] [place] [address] Social History Tobacco Use Types Packs/Day Years Used Date Smoking Tobacco: Never Assessed Sex and Gender Information Value Date Recorded Sex Assigned at Not on file Gender Identity Not on file Sexual Orientation Not on file documented as of this encounter Progress Notes * Konstantin, Tiera Ribbon Cleaner - 01/24/2010 0559 EST [facility] - Physician Summary Registration Date/Time: 09/03/2006 16:35 Arrived- By private vehicle. Historian - patient. HISTORY OF PRESENT ILLNESS Chief Complaint- SUTURE REMOVAL. Previous emergency department treatment: laceration repair. Prescription antibiotic given. Prescription antibiotic - Cephalosporin. She has experienced since the procedure was performed (Tingling around lac & occ in fingers). Treated in emergency department ten days ago. REVIEW OF SYSTEMS No fever, numbness or weakness. All systems otherwise negative, except as recorded above. PAST HISTORY See nurses notes. Medications: The patient's medications have been reviewed. The patient's allergies have been reviewed. SOCIAL HISTORY No recent travel. Is a local resident. ADDITIONAL NOTES The nursing notes have been reviewed. PHYSICAL EXAM Appearance: Alert. Oriented X3. No acute distress. Vital Signs: Have been reviewed - CVS: Pulses normal. Respiratory: No respiratory distress. Skin: Single medium-sized superficial and deep laceration and avulsion on the right hand. Healing wound. No infection. Note (Superficial flap came off. Healing well). No tenderness, warmth, drainage,wound dehiscence or lymphangitis. No swelling. Neuro, Vascular, and Tendons: Sensory deficit present (Can feel light touch & pressure to fingers & hand. Says just feels different). Sensation intact. No tendon injury. No vascular compromise. Neuro: Oriented X 3. No motor deficit. PROGRESS AND PROCEDURES Suture Removal: The wound is located on the right hand. Examination of wound reveals normal healing, no tenderness and no infection. No sensory deficit. ( But pt says tingling. FROM). Sutures removedby ED staff. Wound cleansed. Topical antibiotic and sterile dressing applied. E.D. Course: Pt does not want to see PCP or Ortho. Wants to F/U here next week. Will assess if sensation returning or needs to go to Ortho. ED Attending on duty and available for supervision: Alfred Ty. Disposition: Condition: good and stable. Discharged home in good condition and stable condition. CLINICAL IMPRESSION Suture removal; . Disturbance of sensation with tingling over the right upper extremity . Healing wound to right hand; . INSTRUCTIONS Protect wound and keep wound area clean. Change dressing daily. You may wash wounds briefly, then dry. Apply neosporin daily. Limit use of right hand until released. Warnings: COMPLICATIONS: Complications from this condition include: possible infection, possible injury to a nerve, possible injury to a tendon and possible injury to a ligament. Future problems may include infection, loss of function, pain and deformity. INFECTION: Watch for signs of infection (increasing heat and redness, pus-like drainage, swelling, or increased pain). Return or see your doctor if these signs occur. It is important to follow up with a physician for further evaluation and treatment. GENERAL WARNINGS: Return or contact your physician immediately if your condition worsens or changesunexpectedly, if not improving as expected, or if other problems arise. Follow-up: Return to the emergency department Next week to follow up the sensation change. Understanding of the discharge instructions verbalized by patient. (Electronically signed by Kingston Lemon A.P.R.N. 09/04/2006 20:46) [facility] Center - Nursing Summary Registration Date/Time: 09/03/2006 16:35 TRIAGE Initial Assessment BP: 110 / 62. HR: 80. RR: 18. --1700 Mica Schmidt L.P.N. Temp: 97 (oral). --1732 Mica Schmidt L.P.N. Medications ( see paper chart). --1657 Mica Schmidt L.P.N. Allergies No known drug allergies. --1657 Mica Schmidt L.P.N. History Chief Complaint: SUTURE REMOVAL. The patient has experienced pain since last seen (c/o numbness back of hand). Previous treatment: Previously seen at this facility ten days ago. Laceration repaired. Prescription given. PAST HX: ( see paper chart). Arrived by private vehicle. Historian: patient. --1657 Mica Schmidt L.P.N. PHYSICAL ASSESSMENT Ambulatory to room. Alert. Oriented X 3. Healing wound. No signs or symptoms of infection. Tenderness. ( c/o numbness back of h and Continues to have swelling of knuckle third finger). --1703 Mica Schmidt L.P.N. NURSING PROGRESS NOTES Progress Patient identifiers checked. Sutures to right hand removed by nurse; wound edges well approximated.Patient ready for evaluation - chart flagged. --1707 Mica Schmidt L.P.N. DISPOSITION / DISCHARGE Condition at departure: unchanged. Fall risk assessment completed. No fall risk identified. No learning barriers present. Discharge instructions reviewed with the patient. Reviewed warnings. Patient verbalized understanding. Written instructions provided in Telugu. The patient left the Emergency Department ambulatory. Patient has no belongings. --1732 Mica Schmidt L.P.N. Locked/Released at 09/03/2006 17:34 by Mica Schmidt L.P.N. documented in this encounter Plan of Treatment Not on file documented as of this encounter Visit Diagnoses Not on filedocumented in this encounter Care Teams Balance Truer Relationship Specialty Start Date End Date Aruna Martin MD [address] [place] [address] PCP - General 04/30/09 04/15/17 documented as of this encounter
--- OUTSIDE RECORDS SUMMARY | 2024-09-20 16:43 | XMS_ITS | Encounter Summary ---
Author Organization [facility] Address [address] [place] [address] Care Team Providers Care Chief Psychology Name Role Phone Laura Najera MD Primary Care Provide r Encounter Details Date Type Department Care Team (Late st Contact Info) Description 12/02/2021 Lab Requisition [facility] Pathology & Laboratory Medicine - [address] [address] Outr Resulting Lab, Provider Social History Tobacco [...] Procedure Name Priority Date/Time Associated Diagnosis Comments HIV 1/2 ANTIGEN AND ANTIBODY, 4TH GENERATION Routine 12/02/2021 10:10 EST documented in this encounter Results * HIV 1/2 ANTIGEN AND ANTIBODY, 4TH GENERATION (12/02/2021 10:10 EST) HIV 1 and 2 Antibody/p24 Antigen, 4th Generation Negative Negative 12/03/2021 9:58 EST [facility] Comment:If acute HIV-1 infec tion is suspected in a high risk patient, submit plasma specimen for HIV-1 RNA quantitation test. Blood VENOUS BLOOD / Unknown 12/02/2021 10:10 EST 12/02/2021 20:51 EST Narrative [facility] - 12/03/2021 9:58 EST Fourth Generation assay performed on the Siemens Centaur XPT. Provider Outr Resulting Lab IMMUNOLOGY A ND SEROLOGY ORDERABLES Performing Organization Address City/State/[facility] Co de Phone Number [facility] [address] [place] [address] documented in this encounter Visit Diagnoses Not on filedocumented in this encounter Care Teams Chief Psychology Relationship Specialty Start Date End Date Laura Najera MD [address] [place] [address] PCP - General 04/16/17 documented as of this encounter
--- OUTSIDE RECORDS SUMMARY | 2024-09-20 16:43 | XMS_ITS | Encounter Summary ---
Author Organization [facility] Address [address] [place] [address] Care Team Providers Care Manager Title Name Role Phone Unavailable Primary Care Provider Unavailabl e Encounter Details Date Type Department Care Team (Latest Contact Info) Description 09/05/2003 21:52 EDT Hospital Encounter [facility] - Other [address] [place] [address] Aruna Fuller MD [address] [place] [phone] Discharge Disposition: Auto Discharge Social History Tobacco [...] Procedure Name Priority Date/Time Associated Diagnosis Comments LIPID PROFILE (INCLUDES CHOLESTEROL, TRIGLYCERIDES, HDL, LDL) Routine 09/05/2004 10:35 EDT CYTOPATHOLOGY Routine 09/05/2003 0:00 EDT documented in this encounter Results * LIPID PROFILE (INCLUDES CHOLESTEROL, TRIGLYCERIDES, HDL, LDL) (09/05/2004 10:35 EDT) Cholesterol 223 mg/dl [facility] Comment: Desirable:<200 Borderline:200-239 High Risk:>nr=899 Fasting Triglycerides 97 35 - 160 mg/dl [facility] Comment:Fasting HDL 43 mg/dl [facility] Comment: Highly Desirable:>60 Desirable:35-60 High Risk:<35 Fasting LDL, Calculated 161 mg/dl [facility] Comment: Desirable:<130 Borderline:130-159 High Risk:>tz=251 Fasting Chol/HDL Ratio 5.2 Fasting PATITO QUESADA 09/05/2004 10:3 5 EDT 09/05/2004 21:07 EDT Aruna Jarvis MD CHEMISTRY & BLOOD GA S ORDERABLES [facility] [address] [place] [address] * CYTOPATHOLOGY (09/05/2003 0:00 EDT) Pathology Report: CYTOPATHOLOGY REPORT Reports generated via electronic interface contain original data; however they are lacking the format of the original report. Caution should be taken when reading/interpreti ng unformatted reports. Name: ? KOLE ANGLIN ? Accession #: ? [id number] : ? 1955 (Age: 48) ??F ?Collect Date: ? 09/05/2003 Location: ? [facility] ? Receive Date: ? 09/07/2003 Provider: ?ARUNA FULLER MD Copy to: ? Specimen/Source: ?ThinPrep Pap Test, Endocervix Last Menstrual Period: ? 08/31/03 ? SPECIMEN ADEQUACY ? Satisfactory for Evaluation - transformation zone component present GENERAL CATEGORIZATION ? Negative for Intraepithelial Lesion or Malignancy INTERPRETATION ? Shift in evgeny present suggestive of bacterial vaginosis. ? Document reviewed and electronically signed by: ? ORAL Okeefe(ASCP) ? Report Date: ??09/12/2003 10:08 End of Report PATITO QUESADA 09/05/2003 09/07/2003 Aruna Jarvis MD PATHOLOGY ORDERABLES Performing Organization Address City/State/[facility] Co de Phone Number PATITO QUESADA [address] [place] [address] documented in this encounter Visit Diagnoses Not on filedocumented in this encounter
[2024-09-20 21:16] LABS: ALT 29 U/L (14-59); AST 25 U/L (15-37); Albumin 3.6 g/dL (3.4-5.0); Alkaline Phosphatase 91 U/L (46-116); Bilirubin, Direct 0.1 mg/dL (0.0-0.2); Bilirubin, Total 0.24 mg/dL (0.2-1.0); Calculated LDL 135 mg/dL (<100); Cholesterol 212 mg/dL (<200); HDL Cholesterol 63 mg/dL (40-60); Triglyceride 70 mg/dL (<150)
== END 2024-09-20 16:28 | disposition home or self-care (01) ==
LOC: NCHCN 16:27
PROVIDERS: Visit Provider Nurse Practitioner Family
DX: E78.5 Hyperlipidemia, unspecified (principal)
CPT/HCPCS: 80061; 80076

== ENCOUNTER 2024-11-09 12:52 | Outpatient (CLI) | payer OTHER, SELFPAY ==
--- NOTE | 2024-11-09 | DI.RAD_ITS ---
Exam(s) XR CHEST 2V PA LATERAL EXAM: XR CHEST 2V PA LATERAL CLINICAL HISTORY: Acute URI, J06.9. TECHNIQUE: 2D digital imaging was performed. COMPARISON: No exams were available for comparison FINDINGS: 2 views: There is a cloud fixation plate lower cervical spine evident. Heart size is normal. The mediastinum is not widened. Left lung is clear. There is slightly increased markings in the right lower lobe most of which appea r to be vascular. No pleural effusions. No pulmonary edema. No pneumothorax. No fractures evident . IMPRESSION: Slightly increased markings in the right lower lobe posterior basal segment. Cannot exclude mild inf iltrate at this level. There are no pleural effusions. DATA REPOSITORY: RADIATION DOSE DELIVERED:
--- OUTSIDE RECORDS SUMMARY | 2024-11-09 12:58 | XMS_ITS | Referral Summary ---
Author Organization [facility] Address [address] [place] [address] Care Team Providers Care Cook Ship Name Role Phone Laura Najera MD Primary Care Provide r Allergies No known active allergies Medications sertraline (ZOLOFT) 25 mg tablet Take 150 [...] 01/27/2021 Verbally Threaten Not on file 01/27/2021 Comments No Sex and Gender Information Value Date Recorded Sex Assigned at Not on file Legal Sex Female 17:36 EST Gender Identity Not on file Sexual Orientation [...] Index 27.06 12/06/2021 0649 EST Functional Status * Because of a physical, mental, or emotional condition, does this person have difficulty doing errands alone such as visiting a doctor's office or shopping? Answer Date of Assessment Author No 04/16/2017 12:40 EDT Mental Status * Because of a physical, mental, or emotional condition, does this person have serious difficulty concentrating, remembering, or making decisions? Answer Entry Date Author No 04/16/2017 12:40 EDT Plan of Treatment Not on file Procedures Procedure Name Priority Date/Time Associated Diagnosis Comments HEPATITIS C AB W REFLEX TO HCV RNA BY PCR Routine 12/02/2021 10:10 EST from Last 3 Months or Most Recently Relevant to Health Maintenance Results * HEPATITIS C AB W REFLEX TO HCV RNA BY PCR (12/02/2021 10:10 EST) Hep C Antibody Negative Negative 12/03/2021 14:54 EST [facility] Blood VENOUS BLOOD / Unknown 12/02/2021 10:10 EST 12/02/2021 20:51 EST us Provider Outr Resulting Lab CHEMISTRY & BLOOD GA S ORDERABLES Final Result Performing Organization Address City/State/[facility] Co de Phone Number [facility] [address] [place] [address] from Last 3 Months or Most Recently Relevant to Health Maintenance [place] [place] [address] Advance Directives For more information, please contact: [phone] * Full Code (Latest Code Status on File) Date Activated Date Inactivated Comments 12/06/2021 6:27 12/06/2021 13:03 Question Answer Comments When the patient has NO PULSE: Full Code / CPR Who Made the Decision? Default/Not Discussed Care Teams Cook Ship Relationship Specialty Start Date End Date Laura Najera MD [address] [place] [address] PCP - General 04/16/17
--- OUTSIDE RECORDS SUMMARY | 2024-11-09 12:58 | XMS_ITS | Encounter Summary ---
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 [I83.11] Procedures [facility] ENDOVENOUS RF, 1ST VEIN Right leg radiofrequency ablation of greater saphenous vein Referral ID Status Reason Start Date Expiration Date Visits Re quested Visits Authorized [id number] 1 1 Encounter Details Date Type Department Care Team (Late st Contact Info) Description 12/06/2021 7:30 EST - 12/06/2021 8:55 EST Surgery [facility] Operating Room [address] [place] [address] Thuan Jimenez MD Right leg radiofrequency ablation of greater saphenous vein [92855 (CPT??)] Surgery Details Date/Time Status Location OR Service Patient Class Case Cl ass Case Type Trauma Case? 12/06/2021 0730 Posted [facility] [place] [address] Outpatient Surgery H - Elective Panel [...] EST documented in this encounter Functional Status * Because of a physical, mental, or emotional condition, does this person have difficulty doing errands alone such as visiting a doctor's office or shopping? Answer Date of Assessment Author No 04/16/2017 12:40 EDT documented as of this encounter Mental Status * Because of a physical, mental, or emotional condition, does this person have serious difficulty concentrating, remembering, or making decisions? Answer Entry Date Author No 04/16/2017 12:40 EDT documented in this encounter Discharge Instructions * Discharge Instr [...] call our clinic. Vascular Clinic 5th floor [facility], [facility] . Our clinic offices are open for your questions from 9am-5pm daily Thursday-Thursday. Emergencies can becalled in to the covering physician during off hours. documented in this encounter Medications at Time of Discharge acetaminophen (TYLENOL) 325 mg tablet Take 650 [...] vein (R) Operative Note Date: 12/06/2021 Location: [facility] [place] Name: Mariely Uribe, : 1955, Diagnosis Pre-Op Diagnosis Codes: * Varicose veins of right lower extremity with inflammation [I83.11] Post-op Diagnosis * Varicose veins of right lower extremity with inflammation [I83.11] Procedures Right leg radiofrequency ablation of greater saphenous vein 61438 - [facility] ENDOVENOUS RF, 1ST VEIN Surgeons * Thuan Jimenez MD - Primary Procedure Summary Anesthesia: Patient Choice ASA: III Estimated Blood Loss: No Blood Loss Documented Total IV Fluids: n/a mL LDAs: Peripheral IV 12/06/21 0700 Left;Posterior Hand (Active) Wound Anterior;Distal;Right;Superior Leg (Active) Staff: Time Broker: Amber Delacruz RN Scrub Person: Eliezer Denis Sports Team Marketing Intern: Jennifer Larsen RN Indications: Mariely Uribe is [...] procedure summary. Thuan Jimenez MD CV INVASIVE VASCULAR PROC S Final Result documented in this encounter Visit Diagnoses Diagnosis [...] may reflect changes made after this encounter. acetaminophen (TYLENOL) 325 mg tablet Take 650 [...] (only) 0901 (Given - Provid er: Patty Barba, ASHLEY) ceFAZolin in dextrose 5 % (ANCEF) IVPB DUPLEX 2 g (COMPLETED) 2 g, intravenous, Administer over 30 Minutes, PRE-OP ONCE, 1 dose, On Thu12/06/21 at 0645, Routine, Preprocedure 0701 (Given - Provid er: Kenia Brennan) Continuous Medication Order 12/04/2021 12/05/2021 12/06/2021 lactated ringers (LR) infusion (CANCELED) at 50 mL/hr, 1,000 mL, intravenous, PACU CONTINUOUS, Starting on Thu12/06/21 at 0900, Until Thu12/06/21 at 0903, Routine, Recovery (only) 0841 (New Bag - Prov ider: Patty Barba RN)0940 (IV Stopped - Provider: Patty Barba, ASHLEY) lactated ringers (LR) infusion at 30 mL/hr, intravenous, CONTINUOUS, Starting on Thu12/06/21 at 0645, Until Thu12/06/21 at 1303, Routine, Preprocedure 0701 (New Bag - Prov ider: Kenia Brennan)0738 (Continued by Anesthesia - Provider: Isaias Copeland [...] 12/06/2021 documented in this encounter Care Teams Sales Promoter Relationship Specialty Start Date End Date Laura Najera MD [address] [place] [address] PCP - General 04/16/17 documented as of this encounter
--- OUTSIDE RECORDS SUMMARY | 2024-11-09 12:58 | XMS_ITS | Clinical Summary ---
Author Organization [facility] Address [address] [place] [address] Care Team Providers Care Marketing Sales Manager Name Role Phone Laura Najera MD [...] Hyperlipidemia COPD (chronic obstructive pulmonary disease) ( [facility]) Family History Medical History Relation Comments Diabetes [...] Health Maintenance Due Date Last Done Comments Fall Risk Screening 2022 COVID-19 Vaccine (2023- season) 2024 RSV Immunization ( o r 60+ Years) (1 - 1-dose 75+ series) 2032 Hepatitis C Screen Completed 12/02/2021 Procedures Procedure Name Priority Date/Time Associated Diagnosis Comments HEPATITIS C AB W REFLEX TO HCV RNA BY PCR Routine 12/02/2021 10:10 EST from Last 3 Months or Most Recently Relevant to Health Maintenance Results * HEPATITIS C AB W REFLEX TO HCV RNA BY PCR (12/02/2021 10:10 EST) Hep C Antibody Negative Negative 12/03/2021 14:54 EST [facility] Blood VENOUS BLOOD / Unknown 12/02/2021 10:10 EST 12/02/2021 20:51 EST us Provider Outr Resulting Lab CHEMISTRY & BLOOD GA S ORDERABLES Final Result [facility] [address] [place] [address] from Last 3 Months or Most Recently Relevant to Health Maintenance Insurance [facility] Advance Directives For more information, please contact: [phone] * Full Code (Latest Code Status on File) Date Activated Date Inactivated Comments 12/06/2021 6:27 12/06/2021 13:03 Question Answer Comments When the patient has NO PULSE: Full Code / CPR Who Made the Decision? Default/Not Discussed Care Teams Marketing Sales Manager Relationship Specialty Start Date End Date Laura Najera MD [address] [place] [address] PCP - General 04/16/17
--- OUTSIDE RECORDS SUMMARY | 2024-11-09 12:58 | XMS_ITS | Encounter Summary ---
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 [I83.11] Procedures [facility] ENDOVENOUS RF, 1ST VEIN Right leg radiofrequency ablation of greater saphenous vein Referral ID Status Reason Start Date Expiration Date Visits Re quested Visits Authorized [id number] 1 1 Encounter Details Date Type Department Care Team (Late st Contact Info) Description 12/06/2021 7:38 EST Anesthesia Event [facility] Operating Room [address] [place] [address] Dallas Ji MD [address] [place] [phone] Anesthesia Record Procedure Summary Procedure Name Responsible [...] complications, Dressing applied 12/06/21 0700 by Kenia Brennan FNP 12/06/21 0957 by Patty Barba RN documented in this encounter Social History Tobacco [...] documented as of this encounter Functional Status * Because of [...] 04/16/2017 12:40 EDT documented in this encounter OR Notes * Anesthesia Postprocedure Evaluation - Isaias Copeland CRNA - 12/06/2021 0838 EST Patient: Mariely Uribe Vital signs were reviewed with the recovery nurse. Complete vitals history is available in the [facility] Vitals Value Taken Time BP 111/63 12/06/21 0837 Temp - 12/06/21 0838 Resp 11 12/06/21 0837 Pulse From Oximetry 54 BPM 12/06/21 0837 SpO2 95 % 12/06/21 08 Vitals shown include unvalidated device data. Last [...] Evaluation - Dallas Ji MD - 12/05/2021 2578 EST Anesthesia Preprocedure Evaluation Patient Medical History, [...] Procedure Laterality Date ??? CERVICAL SPINE SURGERY 2016 ??? SECTION x 2 ??? VASCULAR SURGERY [...] Addendum Note - Isaias Copeland CRNA - 12/10/2021750 EST Addendum created 12/10/21750 by Isaias Copeland CRNA Intraprocedure Meds edited, [...] mg documented in this encounter Care Teams Control Clerk Food And Beverage Relationship Specialty Start Date End Date Laura Najera MD [address] [place] [address] PCP - General 04/16/17 documented as of this encounter
--- OUTSIDE RECORDS SUMMARY | 2024-11-09 12:58 | XMS_ITS | Encounter Summary ---
Author Organization [facility] Address [address] [place] [address] Care Team Providers Care Automation Specialist Name Role Phone Laura Najera MD Primary Care Provide r Reason for Visit * Reason Comments Post-OP Follow Up 1st post op for rt l eg vein surgery Encounter Details Date Type Department Care Team (Latest Contact Info) Description 12/13/2021 10:30 EST Post-op Visit Vascular Surgery and Endovascular Therapy - [address] [address] Nurse Practitioner, [facility] Vasc Surg Venous insufficiency, peripheral (Primary [...] - documented in this encounter Functional Status * [...] 04/16/2017 12:40 EDT documented in this encounter Progress Notes * Alice Reyes [...] insufficiency documented in this encounter Care Teams Automation Specialist Relationship Specialty Start Date End Date Laura Najera MD [address] [place] [address] PCP - General 04/16/17 documented as of this encounter
--- OUTSIDE RECORDS SUMMARY | 2024-11-09 12:58 | XMS_ITS | Encounter Summary ---
Author Organization [facility] Address [address] [place] [address] Care Team Providers Care Die Out Worker Name Role Phone Laura Najera MD Primary Care Provide r Encounter Details Date Type Department Care Team (Late st Contact Info) Description 12/03/2021 Prep for Procedure Vascular Surgery and Endovascular Therapy - [address] [address] Alice Reyes, STEP DOWN NURSE [address] [place] [phone] Social History Tobacco Use Types Packs/Day Years Used Date Smoking Tobacco: Former Cigarettes Q uit: 11/30/2008 Smokeless Tobacco: Never Alcohol Use Standard Drinks/Week Comments Yes 3 (1 standard drink = 0.6 oz pur e alcohol) Interpersonal Safety Answer Date Record ed Physically Hurt Never 01/27/2021 Verbally Threaten Not on file 01/27/2021 Comments Unknown Sex and Gender Information Value Date Recorded [...] 04/16/2017 12:40 EDT documented in this encounter H&P Notes * Alice Reyes NP - 12/03/2021 5078 EST Consult note from Dr. Jimenez (06/21/21) reviewed, as well as pre-op H&P completed by PCP, Ramiro Peterson DNP (12/02/21). Pre-op orders placed in preparation for right leg RF ablation of the GSV 12/06/21 at [facility]. documented in this encounter Plan of Treatment Not on file documented as of this encounter Visit Diagnoses Not on filedocumented in this encounter Care Teams Die Out Worker Relationship Specialty Start Date End Date Laura Najera MD [address] [place] [address] PCP - General 04/16/17 documented as of this encounter
--- OUTSIDE RECORDS SUMMARY | 2024-11-09 12:58 | XMS_ITS | Encounter Summary ---
Author Organization [facility] Address [address] [place] [address] Care Team Providers Care Tool And Die Assembler Name Role Phone Laura Najera MD Primary [...] 04/16/2017 12:40 EDT documented in this encounter Plan of Treatment Not on file documented as of this encounter Visit Diagnoses Not on filedocumented in this encounter Care Teams Tool And Die Assembler Relationship Specialty Start Date End Date Laura Najera MD [address] [place] [address] PCP - General 04/16/17 documented as of this encounter
--- OUTSIDE RECORDS SUMMARY | 2024-11-09 12:58 | XMS_ITS | Encounter Summary ---
Author Organization [facility] Address [address] [place] [address] Care Team Providers Care Auto Transmission Technician Name Role Phone Laura Najera MD Primary Care Provide r Encounter Details Date Type Department Care Team (Late st Contact Info) Description 12/02/2021 Lab Requisition [facility] Pathology & Laboratory Medicine - [address] [address] Outr Resulting Lab, Provider Social History Tobacco [...] C Antibody Negative Negative 12/03/2021 14:54 EST [facility] Blood VENOUS BLOOD / Unknown 12/02/2021 10:10 EST 12/02/2021 20:51 EST us Provider Outr Resulting Lab CHEMISTRY & BLOOD GA S ORDERABLES Final Result Performing Organization Address City/State/[facility] Co de Phone Number [facility] [address] [place] [address] documented in this encounter Visit Diagnoses Not on filedocumented in this encounter Care Teams Auto Transmission Technician Relationship Specialty Start Date End Date Laura Najera MD [address] [place] [address] PCP - General 04/16/17 documented as of this encounter
--- OUTSIDE RECORDS SUMMARY | 2024-11-09 12:58 | XMS_ITS | Encounter Summary ---
Author Organization [facility] Address [address] [place] [address] Care Team Providers Care Hook And Eye Attacher Name Role Phone Laura Najera MD Primary Care Provide r Encounter Details Date Type Department Care Team (Late st Contact Info) Description 12/02/2021 Lab Requisition [facility] Pathology & Laboratory Medicine - [address] [address] Outr Resulting Lab, Provider Social History Tobacco [...] 4th Generation Negative Negative 12/03/2021 9:58 EST [facility] Comment:If acute HIV-1 infec tion is suspected in a high risk patient, submit plasma specimen for HIV-1 RNA quantitation test. Blood VENOUS BLOOD / Unknown 12/02/2021 10:10 EST 12/02/2021 20:51 EST Narrative [facility] - 12/03/2021 9:58 EST Fourth Generation assay performed on the Siemens Centaur XPT. us Provider Outr Resulting Lab IMMUNOLOGY AND SEROL OGY ORDERABLES Final Result Performing Organization Address City/State/[facility] Co de Phone Number [facility] [address] [place] [address] documented in this encounter Visit Diagnoses Not on filedocumented in this encounter Care Teams Hook And Eye Attacher Relationship Specialty Start Date End Date Laura Najera MD [address] [place] [phone] PCP - General 04/16/17 documented as of this encounter
--- OUTSIDE RECORDS SUMMARY | 2024-11-09 12:58 | XMS_ITS | Encounter Summary ---
Author Organization [facility] Address [address] [place] [address] Care Team Providers Care Tester Regulator Name Role Phone Laura Najera MD Primary [...] on filedocumented in this encounter Care Teams Tester Regulator Relationship Specialty Start Date End Date Laura Najera MD [address] [place] [address] PCP - General 04/16/17 documented as of this encounter
--- OUTSIDE RECORDS SUMMARY | 2024-11-09 12:58 | XMS_ITS | Encounter Summary ---
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 Operating Room [address] [place] [address] Thuan Jimenez MD Varicose veins of right [...] call our clinic. Vascular Clinic 5th floor [facility], [facility] . Our clinic offices are [...] vein (R) Operative Note Date: 12/06/2021 Location: [facility] [place] Name: Mariely Uribe, : 1955, Diagnosis Pre-Op Diagnosis Codes: * Varicose veins of right lower extremity with inflammation [I83.11] Post-op Diagnosis * Varicose veins of right lower extremity with inflammation [I83.11] Procedures Right leg radiofrequency ablation of greater saphenous vein [address] - WA ENDOVENOUS RF, 1ST VEIN Surgeons * Thuan Jimenez MD - Primary Procedure Summary Anesthesia: Patient Choice ASA: III Estimated Blood Loss: No Blood Loss Documented Total IV Fluids: n/a mL LDAs: Peripheral IV 12/06/21 0700 Left;Posterior Hand (Active) Wound Anterior;Distal;Right;Superior Leg (Active) Staff: Ramp Service Employee: Amber Delacruz RN Scrub Person: Eliezer Denis Electric Range Servicer: Jennifer Larsen RN Indications: Mariely rUibe is an 66 y.o. female who is [...] the operative note for the procedure summary. us Thuan Jimenez MD CV INVASIVE VASCULAR PROC [...] 12/06/2021 documented in this encounter Care Teams Tank Refinisher Relationship Specialty Start Date End Date Laura Najera MD [address] [place] [address] PCP - General 04/16/17 documented as of this encounter
--- OUTSIDE RECORDS SUMMARY | 2024-11-09 12:59 | XMS_ITS | Encounter Summary ---
Author Organization [facility] Address [address] [place] [address] Care Team Providers Care Development And Planning Engineer Name Role Phone Unavailable Primary Care Provider Unavailabl e Encounter Details Date Type Department Care Team (Latest Contact Info) Description 09/05/2003 21:52 EDT Hospital Encounter [facility] - Other [address] [place] [address] Aruna Fuller MD [address] [place] [phone] Discharge Disposition: Auto Discharge Social History Tobacco Use Types Packs/Day Years Used Date Smoking Tobacco: Never Assessed Comments Unknown Sex and Gender Information Value [...] LDL) (09/05/2004 10:35 EDT) Cholesterol 223 mg/dl [facility] Comment: Desirable:<200 Borderline:200-239 High Risk:>ry=633 Fasting Triglycerides 97 35 - 160 mg/dl [facility] Comment:Fasting HDL 43 mg/dl [facility] Comment: Highly Desirable:>60 Desirable:35-60 High Risk:<35 Fasting LDL, Calculated 161 mg/dl [facility] Comment: Desirable:<130 Borderline:130-159 High Risk:>mc=371 Fasting Chol/HDL Ratio 5.2 Fasting [facility] 09/05/2004 10:3 5 EDT 09/05/2004 21:07 EDT us Aruna Jarvis MD CHEMISTRY & BLOOD GAS ORDERABL ES Final Result [facility] [address] [place] [address] * CYTOPATHOLOGY (09/05/2003 0:00 EDT) Pathology Report: CYTOPATHOLOGY REPORT Reports generated via electronic interface contain original data; however they are lacking the format of the original report. Caution should be taken when reading/interpreti ng unformatted reports. Name: ? LINNETTE KOLE ? Accession #: ? [id number] : ? 1955 (Age: 48) ??F ?Collect [...] End of Report [facility] 09/05/2003 09/07/2003 us Aruna Jarvis MD PATHOLOGY ORDERABLES Final Res ult [facility] [address] [place] [address] documented in this encounter Visit Diagnoses Not on filedocumented in this encounter
--- OUTSIDE RECORDS SUMMARY | 2024-11-09 12:59 | XMS_ITS | Encounter Summary ---
Author Organization [facility] Address [address] [place] [address] Care Team Providers Care Aoc Operations Intelligence Officer Name Role Phone Unavailable Primary Care Provider Unavailabl e Encounter Details Date Type Department Care Team (Late st Contact Info) Description 08/28/2006 12:40 EDT Hospital Encounter [address] [address] Rosario Webster MD [address] [place] [phone] Discharge Disposition: Auto Discharge Social History Tobacco [...]
--- OUTSIDE RECORDS SUMMARY | 2024-11-09 12:59 | XMS_ITS | Encounter Summary ---
Author Organization [facility] Address [address] [place] [address] Care Team Providers Care Stretcher And Drier Name Role Phone Unavailable Primary Care Provider Unavailabl e Encounter Details Date Type Department Care Team (Late st Contact Info) Description 05/31/2002 9:32 EDT Hospital Encounter [facility] - Other [address] [place] [address] Aruna Fuller MD [address] [place] [phone] Unknown, Provider, Social History Tobacco Use Types [...] EDT Aruna Jarvis MD CHEMISTRY & BLOOD GAS ORDERABL ES Final Result Performing Organization Address [facility] de Phone Number [facility] [address] [place] [address] * FSH (05/31/2002 11:00 EDT) FSH 10.2 mIU/ml [facility] Comment: Follicular: 2-11 Mid-Cycle Peak: 3.4-35 Luteal: 1-9 Postmenopausal: 25-120 Note new reference range. 05/31/2002 11:0 0 EDT 05/31/2002 21:08 EDT Aruna Jarvis MD CHEMISTRY & BLOOD GAS ORDERABL ES Final Result Performing Organization Address [facility] de Phone Number [facility] [address] [place] [address] * CHOLESTEROL (05/31/2002 11:00 EDT) Cholesterol 229 mg/dl [facility] Comment: Desirable:<200 Borderline:200-239 High Risk:>jh=315 05/31/2002 11:0 0 EDT 05/31/2002 21:08 EDT Aruna Jarvis MD CHEMISTRY & BLOOD GAS ORDERABL ES Final Result Performing Organization Address [facility] de Phone Number [facility] [address] [place] [address] * CYTOPATHOLOGY (05/31/2002 0:00 EDT) Pathology Report: CYTOPATHOLOGY REPORT Reports generated via electronic interface contain original data; however they are lacking the format of the original report. Caution should be taken when reading/interpreti ng unformatted reports. Name: ? KOLE ANGLIN ? Accession #: ? [id number] : ? 1955 (Age: 47) ??F ?Collect [...] Report Date: ??06/08/2002 08:54 End of Report [facility] 05/31/2002 06/01/2002 us Aruna Jarvis MD PATHOLOGY ORDERABLES Final Res ult [facility] [address] [place] [address] documented in this encounter Visit Diagnoses Not on filedocumented in this encounter
--- OUTSIDE RECORDS SUMMARY | 2024-11-09 12:59 | XMS_ITS | Encounter Summary ---
Author Organization [facility] Address [address] [place] [address] Care Team Providers Care Service Team Leader Name Role Phone Laura Najera MD Primary Care Provide r Encounter Details Date Type Department Care Team (Late st Contact Info) Description 04/16/2017 Results Only Imaging [facility] [phone] Laura Najera MD [address] [place] [address] Social History Tobacco Use Types Packs/Day Years Used Date Smoking Tobacco: Former Comments Unknown Sex and Gender Information Value [...] [facility], Level 5 [address] [place] [address] Technologist: Tracy Hunter Fellow: IMPRESSIONS 1. Reflux [...] MD - 04/20/2017 Vascular Diagnostic Laboratory [facility] [address] [place] [address] Technologist: Tracy Hunter Fellow: IMPRESSIONS 1. Reflux [...] Electronically signed by: Dima Woodall 04/20/2017 13:28 us Laura Najera MD IM US VASCULAR ORDER BETSEY Final Result documented in this encounter Visit Diagnoses Not on filedocumented in this encounter Care Teams Service Team Leader Relationship Specialty Start Date End Date Laura Najera MD [address] [place] [address] PCP - General 04/16/17 documented as of this encounter
--- OUTSIDE RECORDS SUMMARY | 2024-11-09 12:59 | XMS_ITS | Encounter Summary ---
Author Organization [facility] Address [address] [place] [address] Care Team Providers Care Plating Machine Operator Name Role Phone Laura Najera MD Primary Care Provide r Reason for Visit * Reason Comments Varicose Veins bilateral lower leg varicose veins, aching/heavy discomfort * Referral (Routine) - Receiving Office to Obtain Authorization Specialty Diagnoses / Procedures Referred By Conteber t Referred To Contact Vascular Surgery Diagnoses Asymptomatic varicose veins of bilateral lower extremities Olga Vasquez FNP [address] [place] [address] Phone: tel: fax: Vascular Surgery and Endovascular Therapy - [address] [address] Phone: tel: fax: Referral ID Status Reason Start Date Expiration Date Visits Requested Visits Authorized [id number] Receiving Office to Obtain Authorization 1 1 Encounter Details Date Type Department Care Team (Latest Contact Info) Description 02/22/2021 14:30 EDT Initial consult [facility] Vascular Surgery [address] [address] Thuan Jimenez MD Venous insufficiency of lower [...] EDT documented in this encounter Functional Status * [...] Thuan Jimenez MD - 02/22/2021 1430 EDT [facility] Vascular Surgery H & P Consultation [...] may reflect changes made after this encounter. cholecalciferol, Vitamin D3, 25 mcg (1,000 unit) tablet Take 2,000 Units by mouth daily. added in this encounter Care Teams Plating Machine Operator Relationship Specialty Start Date End Date Laura Najera MD [address] [place] [address] PCP - General 04/16/17 documented as of this encounter
--- OUTSIDE RECORDS SUMMARY | 2024-11-09 12:59 | XMS_ITS | Encounter Summary ---
Author Organization [facility] Address [address] [place] [address] Care Team Providers Care Production Expediter Name Role Phone Veronica Jarvis MD, Aruna Primary Care Provider Encounter Details Date Type Department Care Team (Late st Contact Info) Description 09/05/2003 Results Only [facility] - Maple [facility] [address] [place] [address] Aruna Martin MD [address] [place] [phone] Social History Tobacco Use Types Packs/Day [...] 09/05/2003 10:4 5 EDT 09/05/2003 20:21 EDT us Aruna Jarvis MD CHEMISTRY & BLOOD GAS ORDERABL ES Final Result Performing Organization Address [facility] Co de Phone Number [facility] [address] [place] [address] * LIPID PROFILE (INCLUDES CHOLESTEROL, TRIGLYCERIDES, HDL, LDL) (09/05/2003 10:45 EDT) Cholesterol 189 mg/dl [facility] Comment: Desirable:<200 Borderline:200-239 High Risk:>xc=984 Fasting Triglycerides 96 35 - 160 mg/dl [facility] Comment:Fasting HDL 36 mg/dl [facility] Comment: Highly Desirable:>60 Desirable:35-60 High Risk:<35 Fasting LDL, Calculated 134 mg/dl [facility] Comment: Desirable:<130 Borderline:130-159 High Risk:>hq=071 Fasting Chol/HDL Ratio 5.3 Fasting [facility] 09/05/2003 10:4 5 EDT 09/05/2003 20:21 EDT us Aruna Jarvis MD CHEMISTRY & BLOOD GAS ORDERABL ES Final Result Performing Organization Address [facility] Co de Phone Number [facility] [address] [place] [address] * (ABNORMAL) COMPREHENSIVE METABOLIC PANEL (CMP) (09/05/2003 10:45 EDT) Potassium 4.9 3.5 - 5.0 mEq/L [facility] Comment:Fasting Sodium 139 136 - 145 mEq/L [facility] Comment:Fasting Chloride 101 96 - 110 mEq/L [facility] Comment:Fasting CO2 29 24 - 30 mEq/L [facility] Comment:Fasting Total Alkaline Phosphatase 87 38 - 126 U/L [facility] Comment:Fasting Bilirubin, Total 0.4 0.2 - 1.3 mg/dl [facility] Comment:Fasting AST 34 8 - 50 U/L [facility] Comment:Fasting ALT 45 15 - 75 U/L [facility] Comment:Fasting Albumin 3.7 3.0 - 5.5 g/dl [facility] Comment:Fasting Total Protein 7.8 6.0 - 8.5 g/dl [facility] Comment:Fasting Creatinine 0.6(L) 0.7 - 1.5 mg/dl [facility] Comment:Fasting BUN 14 10 - 26 mg/dl [facility] Comment:Fasting Calcium 8.9 8.5 - 10.5 mg/dl [facility] Comment:Fasting Calculated Calcium 9.6 8.5 - 10.5 mg/dl [facility] Comment:Fasting Glucose, Serum 91 70 - 110 mg/dl [facility] Comment:Fasting Albumin/Globulin Ratio 0.9 Fasting [facility] 09/05/2003 10:4 5 EDT 09/05/2003 20:21 EDT us Aruna Jarvis MD CHEMISTRY & BLOOD GAS ORDERABL ES Final Result [facility] [address] [place] [address] documented in this encounter Visit Diagnoses Not on filedocumented in this encounter Care Teams Production Expediter Relationship Specialty Start Date End Date Aruna Martin MD [address] [place] [phone] PCP - General 04/30/09 04/15/17 documented as of this encounter
--- OUTSIDE RECORDS SUMMARY | 2024-11-09 12:59 | XMS_ITS | Encounter Summary ---
Author Organization [facility] Address [address] [place] [address] Care Team Providers Care Sweater Designer Name Role Phone Veronica Jarvis MD, Aruna Primary Care Provider [phone] Encounter Details Date Type Department Care Team (Late st Contact Info) Description 04/18/2008 Results Only [facility] - Maple conversion [address] [place] [address] Aruna Fuller MD [address] [place] [phone] Social History Tobacco Use Types Packs/Day [...] ? KOLE ANGLIN ? Accession #: ? [id number] : ? 1955 (Age: 53) ??F ?Collect Date: ? 04/18/2008 Location: ? [facility] ? Receive Date: ? 04/19/2008 Provider: ?ARUNA FULLER MD Copy to: ? Specimen/Source: ?ThinPrep Pap Test, Cervix, processed on [employer] ThinPrep Imaging System, with manual evaluation Last [...] Date: ??04/21/2008 14:00 End of Report [facility] 04/18/2008 04/19/2008 us Aruna Jarvis MD PATHOLOGY ORDERABLES Final Res ult [facility] [address] [place] [address] documented in this encounter Visit Diagnoses Not on filedocumented in this encounter Care Teams Sweater Designer Relationship Specialty Start Date End Date Aruna Fuller MD [address] [place] [phone] PCP - General 04/30/09 04/15/17 documented as of this encounter
--- OUTSIDE RECORDS SUMMARY | 2024-11-09 12:59 | XMS_ITS | Encounter Summary ---
Author Organization [facility] Address [address] [place] [address] Care Team Providers Care Pbx Installer Name Role Phone Veronica Jarvis MD, Aruna Primary Care Provider [phone] Encounter Details Date Type Department Care Team (Latest Contact Info) Description 04/30/2009 8:27 EDT - 04/30/2009 23:59 EDT Hospital Encounter [address] [address] Aruna Martin MD [address] [place] [phone] Discharge Disposition: Home or Self [...] Code Departure Means Destination Home or Self Senior Living documented in this encounter Plan of Treatment Not on file documented as of this encounter Visit Diagnoses Not on filedocumented in this encounter Care Teams Pbx Installer Relationship Specialty Start Date End Date Aruna Martin MD [address] [place] [phone] PCP - General 04/30/09 04/15/17 documented as of this encounter
--- OUTSIDE RECORDS SUMMARY | 2024-11-09 12:59 | XMS_ITS | Encounter Summary ---
Author Organization [facility] Address [address] [place] [address] Care Team Providers Care Business Office Technician Name Role Phone Laura Najera MD Primary Care Provide r Reason for Visit * Vascular Lab (Routine) - Closed Specialty Diagnoses / Procedures Referred By Conteber t Referred To Contact Diagnoses Varicose veins of bilateral lower extremities with pain Procedures US VARICOSE VEIN DUPLEX Julio César Jacques MD Phone: tel: fax: Referral ID Status Reason Start Date Expiration Date Visits Re quested Visits Authorized [id number] Closed 01/18/2021 1 1 Encounter Details Date Type Department Care Team (Latest Contact Info) Description 02/22/2021 13:30 EDT Ancillary Procedure [facility] Vascular Surgery [address] [address] Varicose veins of bilateral lower extremities with [...] Last Order ed Date First Ordered Date VARICOSE VEIN DUPLEX 1 02/22/2021 documented in this encounter Care Teams Business Office Technician Relationship Specialty Start Date End Date Laura Najera MD [address] [place] [address] PCP - General 04/16/17 documented as of this encounter
--- OUTSIDE RECORDS SUMMARY | 2024-11-09 12:59 | XMS_ITS | Encounter Summary ---
Author Organization [facility] Address [address] [place] [address] Care Team Providers Care Trust Mail Clerk Name Role Phone Unavailable Primary Care Provider Unavailabl e Encounter Details Date Type Department Care Team (Late st Contact Info) Description 09/03/2006 16:34 EDT Hospital Encounter [facility] [address] [place] [address] Kingston Lemon, TOY ASSEMBLER WOOD [address] [place] [address] Milly Ty MD [address] [facility] [address] [place] [phone] Social History Tobacco Use Types Packs/Day Years [...]
--- OUTSIDE RECORDS SUMMARY | 2024-11-09 12:59 | XMS_ITS | Encounter Summary ---
Author Organization [facility] Address [address] [place] [address] Care Team Providers Care Senior Pl Sql Developer Name Role Phone Laura Najera MD Primary Care Provide r Encounter Details Date Type Department Care Team (Late st Contact Info) Description 09/26/2021 Orders Only Vascular Surgery and Endovascular Therapy - [address] [address] Caro Meek RN Venous insufficiency (Primary Dx) [...] documented in this encounter Progress Notes * Caro Meek RN - 09/26/2021 1641 EDT covid orders placed CARO MEEK RN 09/26/2021 16:42 documented in this encounter Plan of Treatment Not on file documented as of this encounter Visit Diagnoses Diagnosis Venous insufficiency- Primary Unspecified venous (peripheral) insufficiency documented in this encounter Care Teams Senior Pl Sql Developer Relationship Specialty Start Date End Date Laura Najera MD [address] [place] [address] PCP - General 04/16/17 documented as of this encounter
--- OUTSIDE RECORDS SUMMARY | 2024-11-09 12:59 | XMS_ITS | Encounter Summary ---
Author Organization [facility] Address [address] [place] [address] Care Team Providers Care Urban Planning Teacher Name Role Phone Laura Najera MD Primary Care Provide r Reason for Visit * Reason Comments Pre-op Exam pre-op for left leg [place] [facility] [place] Encounter Details Date Type Department Care Team (Latest Contact Info) Description 09/11/2021 9:30 EDT Office Visit Vascular Surgery [place] [address] Nurse Practitioner, [facility] V[facility] Surg Venous [...] documented in this encounter H&P Notes * Kiya Humphrey, CAR SUPERVISOR - 09/11/2021 0930 EDT [facility] Vascular Surgery H & P Date: 09/11/2021 [...] Date ??? COPD (chronic obstructive pulmonary disease) ([facility]) (HCC) ??? Hyperlipidemia Past Surgical History: Procedure [...] documented as of this encounter Care Teams Urban Planning Teacher Relationship Specialty Start Date End Date Laura Najera MD [address] [place] [address] PCP - General 04/16/17 documented as of this encounter
--- OUTSIDE RECORDS SUMMARY | 2024-11-09 12:59 | XMS_ITS | Encounter Summary ---
Author Organization [facility] Address [address] [place] [address] Care Team Providers Care Voicer Name Role Phone Veronica Jarvis MD, Aruna Primary Care Provider [phone] Encounter Details Date Type Department Care Team (Late st Contact Info) Description 06/24/2013 Results Only [facility] [phone] Alyse Joyner PA [address] [place] [address] Social History Tobacco Use Types Packs/Day Years [...] ? KOLE ANGLIN ? Accession #: ? [id number] ? : ? 1955 (Age: 58) ??F [...] types 16,18,31,33,35, 39,45,51,52,56,58, 59,66, and 68 by weir fisher mediated amplification. Comments Document reviewed and electronically signed by: ? System Interface ? Report date: 07/08/2013 By the signature above, the attending physician certifies that he/she has personally conducted a gross and/or microscopic examination of the described specimens and rendered or confirmed the above diagnosis. End of Report [facility] 06/24/2013 06/28/2013 Alyse ELLIS PATHOLOGY ORDERABLES Final Result [facility] [address] [place] [address] documented in this encounter Visit Diagnoses Not on filedocumented in this encounter Care Teams Voicer Relationship Specialty Start Date End Date Aruna Martin MD [address] [place] [phone] PCP - General 04/30/09 04/15/17 documented as of this encounter
--- OUTSIDE RECORDS SUMMARY | 2024-11-09 12:59 | XMS_ITS | Encounter Summary ---
Author Organization [facility] Address [address] [place] [address] Care Team Providers Care Child Welfare Director Name Role Phone Unavailable Primary Care Provider Unavailabl e Encounter Details Date Type Department Care Team (Latest Contact Info) Description 09/17/2006 13:21 EDT Hospital Encounter [facility] - [address] [address] Neo Rodríguez MD [address] [place] [phone] Discharge Disposition: Auto Discharge Social History [...]
--- OUTSIDE RECORDS SUMMARY | 2024-11-09 12:59 | XMS_ITS | Encounter Summary ---
Author Organization [facility] Address [address] [place] [address] Care Team Providers Care Binder Fixer Name Role Phone Laura Najera MD Primary Care Provide r Encounter Details Date Type Department Care Team (Late st Contact Info) Description 09/17/2021 Orders Only [facility] - [address] [address] Mitchel Welch RN Preop testing (Primary Dx) [...] documented in this encounter Progress Notes * Mitchel Welch RN - 09/17/2021 8205 EDT Covid orders. MITCHEL WELCH RN 09/17/2021 14:41 documented in this encounter Plan of Treatment Not on file documented as of this encounter Visit Diagnoses Diagnosis Preop testing- Primary Preoperative examination, unspecified documented in this encounter Care Teams Binder Fixer Relationship Specialty Start Date End Date Laura Najera MD [address] [place] [address] PCP - General 04/16/17 documented as of this encounter
--- OUTSIDE RECORDS SUMMARY | 2024-11-09 12:59 | XMS_ITS | Encounter Summary ---
Author Organization [facility] Address [address] [place] [address] Care Team Providers Care Hair Preparer Name Role Phone Veronica Jarvis MD, Aruna Primary Care Provider [phone] Encounter Details Date Type Department Care Team (Late st Contact Info) Description 09/18/2010 Results Only [facility] Laboratory Services - [facility] ([facility] [address] [place] [address] Aruna Martin MD [address] [place] [phone] Social History Tobacco Use Types Packs/Day [...] ? KOLE ANGLIN ? Accession #: ? [id number] ? : ? 1955 (Age: 55) ??F [...] reviewed and electronically signed by: ? Meg Marte. [place], [place](ASCP) ? Report ??Date: 09/24/2010 10:37 [...] diagnosis. ? End of Report ? [facility] 09/18/2010 09/20/2010 us Aruna Jarvis MD PATHOLOGY ORDERABLES Final Res ult Performing Organization Address City/State/[facility] Co de Phone Number [facility] [address] [place] [address] documented in this encounter Visit Diagnoses Not on filedocumented in this encounter Care Teams Hair Preparer Relationship Specialty Start Date End Date Aruna Martin MD [address] [place] [phone] PCP - General 04/30/09 04/15/17 documented as of this encounter
--- OUTSIDE RECORDS SUMMARY | 2024-11-09 12:59 | XMS_ITS | Encounter Summary ---
Author Organization [facility] Address [address] [place] [address] Care Team Providers Care Tc Operator Name Role Phone Laura Najera MD [...] on filedocumented in this encounter Care Teams Tc Operator Relationship Specialty Start Date End Date Laura Najera MD [address] [place] [address] PCP - General 04/16/17 documented as of this encounter
--- OUTSIDE RECORDS SUMMARY | 2024-11-09 12:59 | XMS_ITS | Encounter Summary ---
Author Organization [facility] Address [address] [place] [address] Care Team Providers Care Veneer Clipper Helper Name Role Phone Laura Najera MD Primary Care Provide r Reason for Visit * Reason Comments Post-OP Follow Up 1st post op left leg rfa/stabs done Encounter Details Date Type Department Care Team (Latest Contact Info) Description 10/08/2021 9:00 EST Post-op Visit Vascular Surgery [place] [address] Nurse Practitioner, [facility] Venous [...] scheduled for right leg RF ablation at [facility] on 12/06/20. The patient left the clinic feeling well. Alice Reyes NP 10/08/2021 9:32 documented in this encounter Plan of Treatment Not on file documented as of this encounter Visit Diagnoses Diagnosis Venous insufficiency, peripheral- Primary Unspecified venous (peripheral) insufficiency documented in this encounter Care Teams Veneer Clipper Helper Relationship Specialty Start Date End Date Laura Najera MD [address] [place] [address] PCP - General 04/16/17 documented as of this encounter
--- OUTSIDE RECORDS SUMMARY | 2024-11-09 12:59 | XMS_ITS | Encounter Summary ---
Author Organization [facility] Address [address] [place] [address] Care Team Providers Care Psychotherapist Counselor Name Role Phone Unavailable Primary Care Provider Unavailabl e Encounter Details Date Type Department Care Team (Latest Contact Info) Description 01/13/2000 16:09 EST Hospital Encounter [facility] - Other [address] [place] [address] Cristian Gayle MD [address] [place] [address] Unknown, Provider, Discharge Disposition: Auto Discharge Social [...] 01/14/2000 17:5 3 EST 01/14/2000 17:53 EST us Cristian Jarvis MD CHEMISTRY & BLOOD GAS WIN VINES Final Result [facility] [address] [place] [address] * CYTOPATHOLOGY (01/13/2000 14:21 EST) Pathology Report: CYTOPATHOLOGY REPORT Reports generated via electronic interface contain original data; however they are lacking the format of the original report. Caution should be taken when reading/interpreti ng unformatted reports. Name: ? KOLE ANGLIN ? Accession #: ? [id number] : ? 1955 (Age: 45) ??F ?Collect Date: ? 01/13/2000 Location: ?Receive Date: ? 01/13/2000 Provider: ?CRISTIAN GAYLE MD Copy to: ?CRISTIAN GAYLE MD ? Specimen/Source: ?Change Director ThinPrep Last Menstrual Period: ? GYNECOLOGIC ??CYTOPATHOLOGY ??REPORT Name: KOLE THOMASON ? [facility] : 1955 ?? 45Y F ?Client ID: ?? SS#: [id number] ? Clinician: CRISTIAN GAYLE MD, V [facility] ??Copy to: ?? Specimen: ?Change Director ThinPrep ? Source: Cervix/Endocervix ?Collected: 01/10/00 ? [...] Johnson, CT(ASCP) ? Report Date: ?? 01/15/2000 Happy Hour Pal Archived Tests - Final Diagnosis Text Field: [...] 01/13/2000 14:2 1 EST 01/13/2000 14:22 EST us Cristian Jarvis MD PATHOLOGY ORDERABLES Final R esult [facility] [address] [place] [address] documented in this encounter Visit Diagnoses Not on filedocumented in this encounter
--- OUTSIDE RECORDS SUMMARY | 2024-11-09 12:59 | XMS_ITS | Encounter Summary ---
Author Organization [facility] Address [address] [place] [address] Care Team Providers Care Employment Trainer Name Role Phone Unavailable Primary Care Provider Unavailabl e Encounter Details Date Type Department Care Team (Late st Contact Info) Description 09/05/2004 11:40 EDT Hospital Encounter [facility] - Other [address] [place] [address] Aruna Martin MD [address] [place] [phone] Social History Tobacco Use Types Packs/Day [...]
--- OUTSIDE RECORDS SUMMARY | 2024-11-09 12:59 | XMS_ITS | Encounter Summary ---
Author Organization [facility] Address [address] [place] [address] Care Team Providers Care Agricultural Science Professor Name Role Phone Laura Najera MD Primary Care Provide r Encounter Details Date Type Department Care Team (Latest Contact Info) Description 02/13/2021 Lab Requisition [facility] Pathology & Laboratory Medicine - [address] [address] Olga Vasquez FNP [address] [place] [address] Encounter for general adult medical examination without [...] System with Manual Evaluation 02/21/2021 11:46 EDT [facility] Specimen Adequacy Satisfactory for Evaluation - assessment of transformation zone component not applicable ( e.g. atrophy, vaginal sample, hysterectomy) Scant squamous epithelial component, contamination present, possibly lubricant 02/21/2021 11:46 EDT [facility] General Categorization Negative for intraepithelial lesion or malignancy 02/21/2021 11:46 T [facility] Attestation . 02/21/2021 11:46 T [facility] at 1146 Clinical History See below 02/22/20 11:46 T [facility] Performing Lab [facility] 02/21/2021 11:46 T [facility] Scanned Images 02/21/2021 11:46 T [facility] Papanicolaou smear specimen (specimen) CERVIX UTERI STRUCTURE / Unknown 02/12/2021 9:45 EDT 02/13/2021 13:01 EDT Olga Vasquez BANANA CARRIER PATHOLOGY ORDERABLES Final Res ult [facility] [address] [place] [address] documented in this encounter Visit Diagnoses Diagnosis Encounter for general adult medical examination without abnormal findings Unspecified general medical examination Encounter for screening for malignant neoplasm of cervix Screening for malignant neoplasm of the cervix Encounter for screening for human papillomavirus (HPV) Special screening examination for human papillomavirus (HPV) documented in this encounter Care Teams Agricultural Science Professor Relationship Specialty Start Date End Date Laura Najera MD [address] [place] [address] PCP - General 04/16/17 documented as of this encounter
--- OUTSIDE RECORDS SUMMARY | 2024-11-09 12:59 | XMS_ITS | Encounter Summary ---
Author Organization [facility] Address [address] [place] [address] Care Team Providers Care Sequins Spooler Name Role Phone Veronica Jarvis MD, Aruna Primary Care Provider [phone] Encounter Details Date Type Department Care Team (Late st Contact Info) Description 04/30/2009 Orders Only [facility] [address] [place] [address] Aruna Martin MD [address] [place] [phone] Social History Tobacco Use Types Packs/Day [...] nonspecific finding. The ultrasound is otherwise normal. us Aruna Jarvis MD IMG US ORDERABLES Final Result documented in this encounter Visit Diagnoses Not on filedocumented in this encounter Care Teams Sequins Spooler Relationship Specialty Start Date End Date Aruna Martin MD [address] [place] [phone] PCP - General 04/30/09 04/15/17 documented as of this encounter
--- OUTSIDE RECORDS SUMMARY | 2024-11-09 12:59 | XMS_ITS | Encounter Summary ---
Author Organization [facility] Address [address] [place] [address] Care Team Providers Care Decision Analyst Name Role Phone Laura Najera MD Primary Care Provide r Reason for Visit * Reason Comments Varicose Veins ult first Encounter Details Date Type Department Care Team (Late st Contact Info) Description 04/16/2017 12:30 EDT Office Visit Vascular Surgery and Endovascular Therapy - [address] [phone] Laura Najera MD [address] [place], [place] [phone] Thuan Jimenez MD Venous insufficiency of both [...] 12:40 EDT documented in this encounter Discharge Disposition Disposition Code Departure Means Destination Auto Discharge documented in this encounter Progress Notes * Thuan Jimenez MD - 04/16/2017 1230 EDT [facility] Vascular Surgery H & P Consultation Note [...] may reflect changes made after this encounter. sertraline (ZOLOFT) 25 mg tablet Take 150 mg by mouth daily. simvastatin (ZOCOR) 20 mg tablet Take 40 mg by mouth daily. 09/11/2021 added in this encounter Care Teams Decision Analyst Relationship Specialty Start Date End Date Laura Najera MD [address] [place] [address] PCP - General 04/16/17 documented as of this encounter
--- OUTSIDE RECORDS SUMMARY | 2024-11-09 12:59 | XMS_ITS | Encounter Summary ---
Author Organization [facility] Address [address] [place] [address] Care Team Providers Care Senior Ui Ux Designer Name Role Phone Unavailable Primary Care Provider Unavailabl e Encounter Details Date Type Department Care Team (Latest Contact Info) Description 10/23/1999 16:32 EST - 10/29/1999 11:59 EST Hospital Encounter [facility] - [facility] [address] [place] [address] Jose C Bryant MD Discharge Disposition: Auto Discharge Social [...] D 10/29/99 T 10/30/99 /nguyen Jose C Bryant MD [facility] DIAGNOSTIC IMAGING O RDERABLES Final Result * SHOULDER 2 OR MORE VIEWS (10/23/1999 15:09 EST) Anatomical Region Laterality Modality Other 10/23/1999 15:0 9 EST Narrative 10/09/2009 10:30 EST R/O OA OF GH AND AC JOINT BILATSHOULDER PAIN Procedure Note Jevon Linares MD / Adryan Medrano MD - 10/09/2009 R/O OA OF GH AND AC JOINT BILATSHOULDER PAIN Jose C [facility]ATH[facility] DIAGNOSTIC IMAGING O RDERABLES Final Result documented in this encounter Visit Diagnoses Not on filedocumented in this encounter
--- OUTSIDE RECORDS SUMMARY | 2024-11-09 12:59 | XMS_ITS | Encounter Summary ---
Author Organization [facility] Address [address] [place] [address] Care Team Providers Care Chucking Machine Set Up Operator Tool Name Role Phone Laura Najera MD Primary Care Provide r Reason for Visit * Vascular Lab (Routine) - Closed Specialty Diagnoses / Procedures Referred By Sukhi parmar Referred To Contact Diagnoses Varicose veins of bilateral lower extremities with pain Procedures US VARICOSE VEIN DUPLEX Thuan Jimenez MD Referral ID Status Reason Start Date Expiration Date Visits Re quested Visits Authorized [id number] Closed 04/05/2021 1 1 Encounter Details Date Type Department Care Team (Latest Contact Info) Description 06/21/2021 12:30 EDT Ancillary Procedure [facility] Vascular Surgery [address] [address] Varicose veins of bilateral lower extremities with [...] and Lower extremity swelling. Painful varicose veins. us Thuan Jimenez MD IMG US VASCULAR ORDERABLE S Final Result documented in this encounter Visit Diagnoses Diagnosis Varicose veins of bilateral lower extremities with pain documented in this encounter Care Teams Chucking Machine Set Up Operator Tool Relationship Specialty Start Date End Date Laura Najera MD [address] [place] [address] PCP - General 04/16/17 documented as of this encounter
--- OUTSIDE RECORDS SUMMARY | 2024-11-09 12:59 | XMS_ITS | Encounter Summary ---
Author Organization [facility] Address [address] [place] [address] Care Team Providers Care Insulator Technician Name Role Phone Veronica Jarvis MD, Aruna Primary Care Provider [phone] Encounter Details Date Type Department Care Team (Late st Contact Info) Description 07/30/2016 Results Only [facility] [phone] Laura Westbrook MD [address] [place] [address] Social History Tobacco Use Types Packs/Day Years [...] ? KOLE ANGLIN ? Accession #: ? [id number] : ? 1955 (Age: 61) ??F ?Collect [...] Report Date: ??08/07/2016 10:00 End of Report [facility] 07/30/2016 08/01/2016 us Laura Westbrook MD PATHOLOGY ORDERABLES Final Result [facility] [address] [place] [address] documented in this encounter Visit Diagnoses Not on filedocumented in this encounter Care Teams Insulator Technician Relationship Specialty Start Date End Date Aruna Martin MD [address] [place] [phone] PCP - General 04/30/09 04/15/17 documented as of this encounter
--- OUTSIDE RECORDS SUMMARY | 2024-11-09 12:59 | XMS_ITS | Encounter Summary ---
Author Organization [facility] Address [address] [place] [address] Care Team Providers Care Equipment Planner Name Role Phone Veronica Jarvis MD, Aruna Primary Care Provider [phone] Encounter Details Date Type Department Care Team (Late st Contact Info) Description 08/25/2006 Office Visit [facility] - Maple conversion [address] [place] [address] Rosario Webster MD [address] [place] [address] Social History Tobacco Use Types Packs/Day Years [...] allergies. SOCIAL HISTORY Patient is employed (at [employer]). ADDITIONAL NOTES The nursing notes have been [...] 60. HR: 80. RR: 18. Temp: 97.2. --133 Wellington Campbell R.N. Medications Celexa. ( antibiotics, vicodin). --133 Wellington Campbell R.N. Allergies No known drug allergies. --133 Wellington Campbell R.N. History Chief Complaint: LACERATION and ( wound re-check). This occurred ( 4 days). Pain level now: 0/10. ( full rom, continued swelling). Treatment ADOBE LAYER HELPER: ( elvated). PAST HX: Negative. Tetanus status: up-to-date. SOCIAL HX: Smoker: less than 1 pack per day. No alcohol use. Historian: patient. Arrived by private vehicle. --133 Wellington Campbell R.N. PHYSICAL ASSESSMENT Ambulatory to room. ( hand swollen with eccymosis, wound clean and dry, sutures intact). --1331 Wellington Campbell R.N. DISPOSITION / DISCHARGE Condition at departure: improved. No learning barriers present. Discharge instructions reviewed with the patient. Patient verbalized understanding. Written instructions provided in Bahamian. --1411 Wellington Campbell R.N. Locked/Released at 08/28/2006 14:11 by Wellington Campbell R.N. * Rosario Webster MD - 01/23/2010 0157 EST [facility] - Physician Summary Registration Date/Time: 08/25/2006 [...] 110 / 60. HR: 92. RR: 18. --08 Mariely Deluna R.N. Medications Celexa (1/2 tab [...] --816 Mariely Deluna R.N. Appears in pain. --816 Mariely Deluna R.N. NURSING PROGRESS NOTES Progress Patient ready for evaluation - --817 Mariely Deluna R.N. Pre-procedure time-out completed: verified identity of patient (name and birthdate). . --45 Mariely Deluna R.N. Td (TETANUS and DIPHTHERIA) 0.5 mL lot #[id number] exp date IM left deltoid. . --845 Mariely Deluna R.N. Bulky dressing consisting of gauze and Kerlix was applied, following the application of antibiotic ointment. --1045 Marycruz Allen M.A. DISPOSITION / DISCHARGE No learning barriers present. Reviewed medication (Vicodin and antibiotics). Patient verbalized understanding. Written instructions provided in Bahamian. The patient was discharged home. The patient left the EmergencyDepartment ambulatory and via private vehicle. Patient driving. Departure time: 10:53. --1053 Mariely Deluna R.N. Locked/Released at 08/25/2006 10:54 by Mariely Deluna R.N. documented in this encounter Plan of Treatment Not on file documented as of this encounter Visit Diagnoses Not on filedocumented in this encounter Care Teams Equipment Planner Relationship Specialty Start Date End Date Aruna Martin MD [address] [place] [phone] PCP - General 04/30/09 04/15/17 documented as of this encounter
--- OUTSIDE RECORDS SUMMARY | 2024-11-09 12:59 | XMS_ITS | Encounter Summary ---
Author Organization [facility] Address [address] [place] [address] Care Team Providers Care Incident Response Coordinator Name Role Phone Veronica Jarvis MD, Aruna Primary Care Provider [phone] Encounter Details Date Type Department Care Team (Late st Contact Info) Description 04/07/[address] [facility] - Maple conversion [address] [place] [address] Aruna Fuller MD [address] [place] [phone] Social History Tobacco Use Types Packs/Day [...] ? KOLE ANGLIN ? Accession #: ? [id number] : ? 1955 (Age: 52) ??F ?Collect Date: ? 04/07/2007 Location: ? [facility] ? Receive Date: ? 04/09/2007 Provider: ?ARUNA FULLER MD Copy to: ? Specimen/Source: ?ThinPrep Pap Test, Cervix, processed on [facility] ThinPrep Imaging System, with manual evaluation Last [...] Date: ??04/13/2007 13:37 End of Report [facility] 04/07/2007 04/09/2007 us Aruna Jarvis MD PATHOLOGY ORDERABLES Final Res ult [facility] [address] [place] [address] documented in this encounter Visit Diagnoses Not on filedocumented in this encounter Care Teams Incident Response Coordinator Relationship Specialty Start Date End Date Aruna Fuller MD [address] [place] [phone] PCP - General 04/30/09 04/15/17 documented as of this encounter
--- OUTSIDE RECORDS SUMMARY | 2024-11-09 12:59 | XMS_ITS | Encounter Summary ---
Author Organization [facility] Address [address] [place] [address] Care Team Providers Care Technical Customer Support Specialist Name Role Phone Veronica Jarvis MD, Aruna Primary Care Provider [phone] Encounter Details Date Type Department Care Team (Late st Contact Info) Description 04/23/[address] [facility] - Maple conversion [address] [place] [address] Erika Peterson I, TIRE MECHANIC [address] [place] [address] Social History Tobacco Use Types [...] ? KOLE ANGLIN ? Accession #: ? [id number] : ? 1955 (Age: 46) ??F ?Collect Date: ? 04/23/2001 Location: ? [facility] ? Receive Date: ? 04/28/2001 Provider: ?ERIKA PETERSON MD Copy to: ? Specimen/Source: ?ThinPrep Pap Test, Cervix Last Menstrual Period: ? 03/30/01 Other: ? Client ID#: [id number] ? SPECIMEN ADEQUACY ? Satisfactory for evaluation. GENERAL CATEGORIZATION ? Benign Cellular Changes DESCRIPTIVE DIAGNOSIS ? 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 ? Document reviewed and electronically signed by: ? LETICIA Byers(ASCP) ? Report Date: ??04/29/2001 08:10 End of Report [facility] 04/23/2001 04/28/2001 Erika Peterson TIRE MECHANIC PATHOLOGY ORDERABLES Final Re sult [facility] [address] [place] [address] documented in this encounter Visit Diagnoses Not on filedocumented in this encounter Care Teams Technical Customer Support Specialist Relationship Specialty Start Date End Date Aruna Martin MD [address] [place] [address] PCP - General 04/30/09 04/15/17 documented as of this encounter
--- OUTSIDE RECORDS SUMMARY | 2024-11-09 12:59 | XMS_ITS | Encounter Summary ---
Author Organization [facility] Address [address] [place] [address] Care Team Providers Care Power Equipment Technology Instructor Name Role Phone Unavailable Primary Care Provider Unavailabl e Encounter Details Date Type Department Care Team (Late st Contact Info) Description 09/11/2006 15:13 EDT Hospital Encounter [facility] [address] [place] [address] Katie Veras NP [address] [place] [id number] Social History Tobacco Use Types Packs/Day Years [...]
--- OUTSIDE RECORDS SUMMARY | 2024-11-09 12:59 | XMS_ITS | Encounter Summary ---
Author Organization [facility] Address [address] [place] [address] Care Team Providers Care Automobile Service Advisor Name Role Phone Laura Najera MD Primary Care Provide r Reason for Visit * Reason Onset Date Comments COVID-19 12/02/2021 Encounter Details Date Type Department Care Team (Late st Contact Info) Description 12/02/2021 Telephone [facility] [place] [address] [place] [address] Thuan Jimenez MD COVID-19 Social History Tobacco [...] 04/16/2017 12:40 EDT documented in this encounter Miscellaneous Notes * Telephone Encounter - Niya Hughes - 12/02/2021 0927 EST Patient advised they would like covid testing done at [facility]. Assistant Professor Of Music faxed the order and asked that they schedule the patient for testing on 12/03/21. Also made patient aware of testing date. Assistant Professor Of Music will also remove patient from the work queue. documented in this encounter Plan of Treatment Not on file documented as of this encounter Visit Diagnoses Not on filedocumented in this encounter Care Teams Automobile Service Advisor Relationship Specialty Start Date End Date Laura Najera MD [address] [place] [id number] PCP - General 04/16/17 documented as of this encounter
--- OUTSIDE RECORDS SUMMARY | 2024-11-09 12:59 | XMS_ITS | Encounter Summary ---
Author Organization [facility] Address [address] [place] [address] Care Team Providers Care Flare Man Name Role Phone Unavailable Primary Care Provider Unavailabl e Encounter Details Date Type Department Care Team (Latest Contact Info) Description 09/13/2001 22:38 EDT Hospital Encounter [facility] - Other [address] [place] [address] Lesly Paulino, OT [address] [phone] Unknown, Provider, MD Discharge Disposition: Auto Discharge Social History [...] taken when reading/interpreting unformatted reports. Name: ? KOLE ANGLIN ? Accession #: ? [id number] ? : ? 1955 (Age: 46) ??F [...] in cases of partially treated psoriasis. ??(Dr. Rubio)/[facility] Microscopic Description: ? Sections consist of a [...] Gross Description: ? Received in formalin labelled Rony and R thigh is a punch biopsy of skin which measures 0.3 cm in diameter and 0.3 cm in depth. ??The specimen is submitted entirely in one cassette. ??(Dr. Martinez)/rigoberto End of Report PATITO QUESADA 09/13/2001 09/14/2001 9:2 8 EDT us Lesly Paulino OT PATHOLOGY ORDERABLES Fin al Result PAT[facility]O QUESADA [address] [place] [address] documented in this encounter Visit Diagnoses Not on filedocumented in this encounter
--- OUTSIDE RECORDS SUMMARY | 2024-11-09 12:59 | XMS_ITS | Encounter Summary ---
Author Organization [facility] Address [address] [place] [address] Care Team Providers Care Traffic Maintenance Officer Name Role Phone Veronica Jravis MD, Aruna Primary Care Provider [phone] Encounter Details Date Type Department Care Team (Late st Contact Info) Description 12/16/2005 Results Only [facility] - Maple conversion [address] [place] [address] Aruna Fuller MD [address] [place] [phone] Social History Tobacco Use Types Packs/Day [...] ? KOLE ANGLIN ? Accession #: ? [id number] : ? 1955 (Age: 50) ??F ?Collect Date: ? 12/16/2005 Location: ? [facility] ? Receive Date: ? 12/18/2005 Provider: ?ARUNA FULLER MD Copy to: ? Specimen/Source: ?ThinPrep Pap Test, Cervix, processed on APJeTPrep Imaging System, with manual evaluation Last Menstrual Period: ? 11/24/05 ? SPECIMEN ADEQUACY ? Satisfactory for Evaluation - transformation zone component present GENERAL CATEGORIZATION ? Negative for Intraepithelial Lesion or Malignancy INTERPRETATION ? Shift in evgeny present suggestive of bacterial vaginosis. ? Document reviewed and electronically signed by: ? LETICIA Harrison(ASCP) ? Report Date: ??12/19/2005 15:19 End of Report PATITO QUESADA 12/16/2005 12/18/2005 us Aruna Jarvis MD PATHOLOGY ORDERABLES Final Res ult Performing Organization Address City/State/[facility] Co de Phone Number [facility] [address] [place] [address] documented in this encounter Visit Diagnoses Not on filedocumented in this encounter Care Teams Traffic Maintenance Officer Relationship Specialty Start Date End Date Aruna Fuller MD [address] [place] [address] PCP - General 04/30/09 04/15/17 documented as of this encounter
--- OUTSIDE RECORDS SUMMARY | 2024-11-09 12:59 | XMS_ITS | Encounter Summary ---
Author Organization [facility] Address [address] [place] [address] Care Team Providers Care Drilling Engineer Name Role Phone Veronica Jarvis MD, Aruna Primary Care Provider [phone] Encounter Details Date Type Department Care Team (Late st Contact Info) Description 09/05/2004 Results Only [facility] - Maple conversion [address] [place] [address] Aruna Fuller MD [address] [place] [phone] Social History Tobacco Use Types Packs/Day [...] ? KOLE ANGLIN ? Accession #: ? [id number] : ? 1955 (Age: 49) ??F ?Collect [...] reviewed and electronically signed by: ? LETICIA Sorto(ASCP) ? Report Date: ??09/12/2004 07:41 End of Report PATITO QUESADA 09/05/2004 09/06/2004 us Aruna Jarvis MD PATHOLOGY ORDERABLES Final Res ult [facility] [address] [place] [address] documented in this encounter Visit Diagnoses Not on filedocumented in this encounter Care Teams Drilling Engineer Relationship Specialty Start Date End Date Aruna Fuller MD [address] [place] [address] PCP - General 04/30/09 04/15/17 documented as of this encounter
--- OUTSIDE RECORDS SUMMARY | 2024-11-09 12:59 | XMS_ITS | Encounter Summary ---
Author Organization [facility] Address [address] [place] [address] Care Team Providers Care Surgical Attendant Name Role Phone Veronica Jarvis MD, Aruna Primary Care Provider [phone] Encounter Details Date Type Department Care Team (Late st Contact Info) Description 09/11/2006 Office Visit [facility] - Maple conversion [address] [place] [address] Katie Veras NP [address] [place] [address] Social History Tobacco Use Types Packs/Day Years [...] HISTORY OF PRESENT ILLNESS Patient seen at [facility] 2.5 weeks ago for a laceration to [...] to the [facility]. Follow-up: [facility], Hand Division, [phone], [facility] - 5th Floor, [address] [place] [address]. Follow up. Call for the next available appointment. Understanding of the discharge instructions verbalized by patient. (Electronically signed by Volodymyr Veras N.P. 09/11/2006 20:06) Care Center - Nursing Summary Registration Date/Time: 09/11/2006 15:13 TRIAGE Initial Assessment BP: 122 / 80 sitting R arm manual (reg adult cuff). HR: 72 regular. RR: 16. Temp: 97.5 oral. --1540Isadora Ayala, Triage time 15:40. --154 Isadora Ayala, . Medications Celexa. --154 Isadora Ayala, . Allergies No known drug allergies. --1540 Isadora Ayala, . History Chief Complaint: RECHECK. Arrived by private vehicle. Historian: patient. --154 Isadora Ayala, Previous treatment: Previously seen at this facility. --154 Isadora Ayala, Previous treatment: ( Pt continues with numbness and tingling in right hand around the wound. Is here because she was advised to return for recheck.). --1547 Mariely Deluna R.N. ( Pt keeps the wound covered [...] on filedocumented in this encounter Care Teams Surgical Attendant Relationship Specialty Start Date End Date Aruna Martin MD [address] [place] [address] PCP - General 04/30/09 04/15/17 documented as of this encounter
--- OUTSIDE RECORDS SUMMARY | 2024-11-09 12:59 | XMS_ITS | Encounter Summary ---
Author Organization [facility] Address [address] [place] [address] Care Team Providers Care Stock Preparer Name Role Phone Unavailable Primary Care Provider Unavailabl e Encounter Details Date Type Department Care Team (Late st Contact Info) Description 08/25/2006 8:00 EDT - 08/25/2006 11:59 EDT Hospital Encounter [address] [address] Rosario Webster MD [address] [place] [phone] Discharge Disposition: Auto Discharge Social History Tobacco [...] evidence of fracture. D: ??08/25/2006 T: ??08/26/2006 /[facility]. Procedure Note Yifan Gary MD - 06/09/2009 crush injury to left hand after repair RIGHT HAND, THREE OR MORE VIEWS, 08/25/2006, 1015 CLINICAL HISTORY: Crush injury to left hand. Three views were obtained. FINDINGS: The bones and soft tissues are within normal limits. No fracture is identified. IMPRESSION: Normal examination of the right hand with no evidence of fracture. /[facility]. Evelia Baxter MD IMG DIAGNOSTIC IMAGING KHADIJAH DURAN Final Result documented in this encounter Visit Diagnoses Not on filedocumented in this encounter
--- OUTSIDE RECORDS SUMMARY | 2024-11-09 12:59 | XMS_ITS | Encounter Summary ---
Author Organization [facility] Address [address] [place] [address] Care Team Providers Care Plating Stripper Name Role Phone Veronica Jarvis MD, Aruna Primary Care Provider [phone] Encounter Details Date Type Department Care Team (Late st Contact Info) Description 09/03/2006 Office Visit [facility] - Maple conversion [address] [place] [address] Kingston Lemon, LATEX FASHIONS DESIGNER [address] [place] [address] Social History Tobacco Use Types Packs/Day Years Used Date Smoking Tobacco: Never Assessed Comments Unknown Sex and Gender Information Value Date Recorded Sex Assigned at Not on file Legal Sex Female 17:36 EST Gender Identity Not on file Sexual Orientation Not on file documented as of this encounter Progress Notes * Konstantin, Conv Crm Marketing Specialist - 01/24/2010 0559 EST [facility] - Physician Summary Registration Date/Time: 09/03/2006 16:35 [...] Patient verbalized understanding. Written instructions provided in Uzbek. The patient left the Emergency Department ambulatory. Patient has no belongings. --1732 Mica Schmidt L.P.N. Locked/Released at 09/03/2006 17:34 by Mica Schmidt L.P.N. documented in this encounter Plan of Treatment Not on file documented as of this encounter Visit Diagnoses Not on filedocumented in this encounter Care Teams Plating Stripper Relationship Specialty Start Date End Date Aruna Martin MD [address] [place] [phone] PCP - General 04/30/09 04/15/17 documented as of this encounter
--- OUTSIDE RECORDS SUMMARY | 2024-11-09 12:59 | XMS_ITS | Encounter Summary ---
Author Organization [facility] Address [address] [place] [address] Care Team Providers Care Weights And Measures Sealer Name Role Phone Laura Najera MD Primary Care Provide r Reason for Visit * Reason Comments Follow-up u/s first Encounter Details Date Type Department Care Team (Latest Contact Info) Description 06/21/2021 13:[address] [facility] [address] [address] Thuan Jimenez MD Venous insufficiency of lower [...] Notes * Thuan Jimenez MD - 06/21/2021 1330 EDT CC: BLE venous insufficiency SUBJECTIVE: The [...] Gatherings with Friends and Family: ??? Attends Orthodoxy Services: ??? Active Member of Clubs or [...] Primary documented in this encounter Care Teams Weights And Measures Sealer Relationship Specialty Start Date End Date Laura Najera MD [address] [place] [address] PCP - General 04/16/17 documented as of this encounter
--- OUTSIDE RECORDS SUMMARY | 2024-11-09 12:59 | XMS_ITS | Encounter Summary ---
Author Organization [facility] Address [address] [place] [address] Care Team Providers Care Home Health Attendant Name Role Phone Laura Najera MD Primary Care Provide r Reason for Visit * Reason Onset Date Comments COVID-19 09/19/2021 Encounter Details Date Type Department Care Team (Late st Contact Info) Description 09/19/2021 Telephone [facility] [address] [place] [address] Thuan Jimenez MD COVID-19 Social History Tobacco [...] they would like covid testing done at [facility]. Geophysical Data Technician faxed the order to [phone] and asked that they schedule the patient for testing on 09/24. Also made patient aware of testing date. Geophysical Data Technician will also remove patient from the work queue. documented in this encounter Plan of Treatment Not on file documented as of this encounter Visit Diagnoses Not on filedocumented in this encounter Care Teams Home Health Attendant Relationship Specialty Start Date End Date Laura Najera MD [address] [place] [address] PCP - General 04/16/17 documented as of this encounter
== END 2024-11-09 13:12 ==
PROVIDERS: Visit Provider Nurse Practitioner Family
DX: J06.9 Acute upper respiratory infection, unspecified (principal)
CPT/HCPCS: 71046

== ENCOUNTER 2025-09-20 16:14 | Outpatient (REF) | payer MEDICARE, SELFPAY ==
[2025-09-20 20:59] LABS: ALT 28 U/L (14-59); AST 25 U/L (15-37); Albumin 3.7 g/dL (3.4-5.0); Alkaline Phosphatase 83 U/L (46-116); Anion Gap 7.4 mmol/L (3-11); BUN 22 mg/dL (7-18); Bilirubin, Total 0.3 mg/dL (0.2-1.0); CO2 30.6 mmol/L (21.0-32.0); Calcium 9.0 mg/dL (8.5-10.1); Calculated LDL 94 mg/dL (<100); Chloride 103 mmol/L (98-107); Cholesterol 168 mg/dL (<200); Estimated GFR 80.21 (mL/min/1.73m2); Glucose 86 mg/dL (74-106); HDL Cholesterol 55 mg/dL (>or=50); Potassium 4.7 mmol/L (3.5-5.1); Sodium 141 mmol/L (136-145); Total Protein 7.1 g/dL (6.4-8.2); Triglyceride 95 mg/dL (<150)
== END 2025-09-20 16:15 | disposition home or self-care (01) ==
LOC: NCHCN 16:14
PROVIDERS: Visit Provider Nurse Practitioner Family
DX: Z00.00 Encounter for general adult medical examination without abnormal findings (principal)
CPT/HCPCS: 80053; 80061

== ENCOUNTER → 2025-10-02 02:20 | Outpatient (CLI) | payer MEDICARE, SELFPAY ==
--- NOTE | 2025-10-02 11:55 | DI.MAMMO_ITS ---
Exam(s) MAMMO SCREENING EXAM: MAMMO SCREENING CLINICAL HISTORY: SCREENING MAMMO Z12.31 TECHNIQUE: Bilateral full field digital CC and MLO mammographic images were obtained with 3D tomosynthesis and utilizing computer aided detection (CAD). COMPARISON: Comparison is made with prior examinations. FINDINGS: Masses/Architectural Distortion: No suspicious masses or areas of architectural distortion are present. Microcalcifications: No suspicious pleomorphic-type are seen. Skin Thickening/Nipple Retraction: None. IMPRESSION: 1. No significant interval change with no specific features of malignancy noted. 2. Unless there is more urgent need, screening mammography is recommended, as per [employer] guidelines. BI-RADS Category 1 - Negative Breast Density - Category D - The breast are extremely dense, which lowers the sensitivity of the mammography. Breast density Category C or D implies that the patient has dense breast tissue. Dense breast tissue can make it harder to find cancer on a mammogram. Dense breast tissue is also associated with an increased risk of breast cancer. This information about the result of the mammogram report was provided to the patient to raise their awareness. Use this report when you speak with the patient about their risks for breast cancer, which includes their family history. At that time, you may recommend additional screening tests (Ultrasound or MRI) as these tests may add significant information. A negative radiographic report should not delay biopsy if a dominant or clinically suspicious mass is present. Up to ten percent of cancers are not identified on mammography. A negative report may reinforce clinical impression. Adenosis and dense breasts may obscure an underlying neoplasm. False positive reports average 6 to 10%. Patient will receive a letter notifying them of these results.
== END ==
PROVIDERS: PCP Nurse Practitioner Family; Visit Provider Nurse Practitioner Family
DX: Z12.31 Encounter for screening mammogram for malignant neoplasm of breast (principal)
CPT/HCPCS: 77063; 77067